=== PATIENT | female | born 1945 | race Caucasian/White ===

== ENCOUNTER → 2016-06-07 | Outpatient (CLI) | payer OTHER, MEDICARE ==
[~2016-06-07] MED LIST: ALL180 PO; AMOX1TAB43 PO; AMOX500C3 PO; APRE1TAB4 PO; ASCA500 PO; ASPEC81 PO; CALC3OIN TOP; CALCTAB5 PO; CARB1SOL OPB; CARV3.122 PO; CHOL2000 PO; CLBCRM30 EXT; CLC100 PO; CMD1 PO; CRG625 PO; EMOLCRE TD; ENOX80IN SQ; LACT10CA3 PO; LEVO100T7 PO; LEVO88TA PO; LVNIS80 SQ; MGNO400 PO; MISCCAP80 PO; MRLP17 PO; MULT-190 PO; MULT-506 PO; OXYC-57 PO; POLY1DRO OPB; PSYLCAP5 PO; RXC5 PO; SALI0.6510; SALI1SPR3 NAE; SPIR25TA PO; TYL325X PO; [UNRECOGNIZED DRUG - CODE] EXT; [UNRECOGNIZED DRUG - OTHER] OPB; [UNRECOGNIZED DRUG - OTHER] OPB
--- NOTE | 2016-06-14 09:47 | CODING QUERY MEDICAL NECESSITY ---
CQSUPPORTING DIAGNOSIS NEEDED A supporting diagnosis is required for the test/procedure performed on this patient in order for us to be reimbursed by the patient's insurance. Please provide a supporting diagnosis for the following test/procedure listed below next to the test name along with your signature. *If there is no additional diagnosis for this patient that would support the following test/procedure please document that below next to the test/procedure. Test(s)/Procedure(s) that require a supporting diagnosis: DOS 06/07/16 BONE DENSITY TEST Provider Signature: Date: Thank you Nancy Faust Health Information Management Once completed, please kindly fax back to [phone] For questions please call [phone]
== END | disposition home or self-care (01) ==
LOC: C.MAMM 10:20
PROVIDERS: ATTEND Internal Medicine
DX: M85.80 Other specified disorders of bone density and structure, unspecified site (principal)

== ENCOUNTER → 2016-07-06 | Day surgery (SDC) | payer OTHER, MEDICARE ==
[2016-06-15 09:21] VITALS: BMI 27.0
--- NOTE | 2016-06-15 10:02 | PAT Medication Instructions ---
Service Date Jun 15, 2016. Current Home Medication List Amoxicillin (Amoxil), 2,000 MG PO UD Apremilast (Otezla 10 & 20 & 30 mg), 30 MG PO BID Ascorbic Acid (Vitamin C), 1,000 MG PO QAM Aspirin Enteric Coated (Ecotrin Or Generic *), 81 MG PO QAM Calcitriol (Topical) (Vectical), 1 DOSE TOP PRN Calcium (Caltrate), 1,200 MG PO QAM Carvedilol (Coreg), 3.125 MG PO BIDM Clobetasol Propionate (Clobetasol Propionate Cream 0.05%), 1 APPLN EXT BID PRN for PSORIASIS Emollient (Cetaphil), 1 APPLN TD PRN Fexofenadine Hcl (Mary Jo *), 180 MG PO QAM Hydrocortisone Butyrate Hydrop (Locoid Cream 0.1%), 1 APPLN EXT PRN PRN for PSORIASIS Lactobacillus-Inulin (Culturelle), 1 TAB PO QAM Levothyroxine Sodium (Synthroid), 88 MCG PO HS Multivitamin (Multivitamin), 1 TAB PO QAM Ocuvite Preservision (Ocuvite Preservision), 1 TAB PO BID Polyethylene Glycol-Propylene (Systane Liquid Gel), 2 DROPS OPB HS Psyllium W/ Calcium (Metamucil Plus Calcium), 2 TAB PO NOON Saline (Saline Nasal Sparks), 1-2 SPRAYS ERIN PRN Spironolactone (Aldactone), 25 MG PO QAM Warfarin Sod (Coumadin), 3-4 MG PO QPM [Optiva Advanced], 1 DROP OPB PRN Medication Instructions For Your Scheduled Surgery Amoxicillin (Amoxil), 2,000 MG PO UD (takes prior to dental procedures) Apremilast (Otezla 10 & 20 & 30 mg), 30 MG PO BID (check with laundry laborer for instructions) - Check with surgeon/condemnation engineer for instructions: Aspirin Enteric Coated (Ecotrin Or Generic *), 81 MG PO QAM Warfarin Sod (Coumadin), 3-4 MG PO QPM - Hold the following medications 24 hours prior to surgery: Hydrocortisone Butyrate Hydrop (Locoid Cream 0.1%), 1 APPLN EXT PRN PRN for PSORIASIS Clobetasol Propionate (Clobetasol Propionate Cream 0.05%), 1 APPLN EXT BID PRN for PSORIASIS Calcitriol (Topical) (Vectical), 1 DOSE TOP PRN Emollient (Cetaphil), 1 APPLN TD PRN - Hold the following medications the morning of surgery: Spironolactone (Aldactone), 25 MG PO QAM Psyllium W/ Calcium (Metamucil Plus Calcium), 2 TAB PO NOON Ocuvite Preservision (Ocuvite Preservision), 1 TAB PO BID Multivitamin (Multivitamin), 1 TAB PO QAM Lactobacillus-Inulin (Culturelle), 1 TAB PO QAM Fexofenadine Hcl (Mary Jo *), 180 MG PO QAM Ascorbic Acid (Vitamin C), 1,000 MG PO QAM Calcium (Caltrate), 1,200 MG PO QAM - Take the following medications the morning of surgery with a sip of water: Saline (Saline Nasal Sparks), 1-2 SPRAYS ERIN PRN [Optiva Advanced], 1 DROP OPB PRN Carvedilol (Coreg), 3.125 MG PO BIDM - Take the following medications as scheduled the night before surgery: Saline (Saline Nasal Sparks), 1-2 SPRAYS ERIN PRN Polyethylene Glycol-Propylene (Systane Liquid Gel), 2 DROPS OPB HS Ocuvite Preservision (Ocuvite Preservision), 1 TAB PO BID Levothyroxine Sodium (Synthroid), 88 MCG PO HS [Optiva Advanced], 1 DROP OPB PRN Carvedilol (Coreg), 3.125 MG PO BIDM If you have any questions please call us at [phone] (Gianna Gonzales PA-C) or [phone] or [phone]
[2016-06-15 10:31] LABS: BASO % 0.3 %; BASO ABS # 0.03 K/uL (0-0.2); COMPLETE YES; EOS % 10.4 %; HEMATOCRIT 42.8 % (37-47); IG% 0.2 %; LYMPH % 15.7 %; LYMPH ABS # 1.64 K/uL (1.2-3.4); MEAN CELL VOLUME 98.4 fL (80-100); MEAN CORPUSCULAR HEMOGLOBIN 33.3 pg (25-34); MEAN CORPUSCULAR HGB CONC 33.9 g/dl (32-36); MEAN PLATELET VOLUME 9.5 fL (7.4-10.4); MONO % 8.5 %; NEUT % 64.9 %; PLATELET COUNT 283 K/uL (130-400); RED BLOOD COUNT 4.35 M/uL (4.2-5.4); WHITE BLOOD COUNT 10.43 K/uL (4.8-10.8)
[2016-06-15 10:57] LABS: BUN/CREATININE RATIO 11.4 (10-20); CALCIUM 9.3 mg/dl (8.5-10.1); CREATININE 0.89 mg/dl (0.60-1.20); POTASSIUM 4.4 mmol/L (3.5-5.1)
[2016-06-15 11:30] LABS: MANUAL MICROSCOPIC REQUIRED? NO; REVIEW REQ? NO; URINE APPEARANCE CLEAR (CLEAR); URINE BILIRUBIN NEG (NEG); URINE COLOR YELLOW; URINE NITRITE NEG (NEG); URINE SPECIFIC GRAVITY 1.018 (1.000-1.030); UROBILINOGEN NEG (NEG)
--- NOTE | 2016-07-05 19:58 | HISTORY & PHYSICAL EXAMINATION ---
DATE OF ADMISSION: 07/06/2016 SUBJECTIVE CHIEF COMPLAINT: Right knee pain. HISTORY OF PRESENT ILLNESS: This is a patient who has been treated conservatively with chronic anterior right knee pain. She had failed all conservative management and had an MRI performed of the right knee which noted chondromalacia of the patella and also a Kearns cyst. She is now being set up for surgical treatment. PAST MEDICAL HISTORY: History of aortic valve replacement, bilateral carotid bruits, diverticulosis, gout, hyperglycemia, hypertension, hypothyroidism, psoriasis, history of cardiomyopathy, history of pulmonary embolism. PAST SURGICAL HISTORY: History of aortic valve replacement x2 with a bovine heart valve in March of 2002 and a mechanical valve in September of 2010, tonsillectomy, hysterectomy in September of 2002 and a basal cell carcinoma surgery from her nose in 2014. FAMILY HISTORY: Noncontributory. SOCIAL HISTORY: The patient is a previous smoker, she quit in 1980. She has approximately 4 alcoholic drinks per day. OBJECTIVE PHYSICAL EXAMINATION: GENERAL: The patient is alert and oriented x3. She is in no acute distress. She is a well-dressed, well-nourished 70-year-old female. Her affect is appropriate. CARDIOVASCULAR: Heart has a regular rhythm and rate with a normal S1 and a mechanical aortic prosthetic S2. LUNGS: Clear to auscultation bilateral. Dorsalis pedis, posterior tib pulses are +2/4. Cap refill is less than 2 seconds. LYMPHATIC: No evidence of any swollen lymph nodes. MUSCULOSKELETAL: The patient has an antalgic gait favoring the right lower extremity. On inspection of the right lower extremity, the patient is noted to have swelling of the right knee and there is also a knee effusion noted. With palpation, the patient has tenderness over the patella. She also has pain and crepitation with patellar grind testing. There is crepitation with passive and active range of motion. There is no laxity with varus or valgus stress or with anterior or posterior drawer. The patient has decrease in strength secondary to pain in the right knee. SKIN: There are no scars, rashes or ulcers noted. NEUROLOGIC: Sensation is normal intact distally. X-RAY EXAM: MRI of the right knee demonstrates severe patellofemoral osteoarthritic changes with mild medial and lateral compartment arthritic changes. There is a moderate-sized Kearns cyst. ASSESSMENT AND DIAGNOSES: 1. Right knee chondromalacia patella. 2. Kearns cyst right knee. PLAN: Above assessment was discussed with the patient. At this time, it was recommended the patient undergo a right knee arthroscopy with chondroplasty of the patellofemoral joint and aspiration of the Kearns cyst. All potential risks, benefits, complications, alternatives and rehab have been discussed with the patient. At this time, she wishes to proceed with the surgery as indicated. She will be scheduled for the surgery on 07/06/2016.
[~2016-07-06] VITALS: Ht 167.6 cm; Wt 76.8 kg
[~2016-07-06] MED LIST changes: +ATROPINE SULFATE 0.1 MG/ML 5ML SYR IV PRN; +BUPIVACAINE/EPINEPHRINE 0.5% MPF 1:200,000 30 ML VIAL ONE; -CARB1SOL OPB; +CEFAZOLIN 1000MG/55 ML D5W IV SCH; +DEXAMETHASONE SOD INJ 4 MG/ML VIAL ONE; +EpHEDrine SULFATE INJ 50 MG/ML AMP IV PRN; +FENTANYL CITRATE INJ 50 MCG/1 ML 2 ML VIAL IV PRN; +FENTANYL CITRATE INJ 50 MCG/1 ML 2 ML VIAL ONE; +HYDROmorphone INJ 1 MG/ML SYR IV PRN; +LACTATED RINGER'S 1000ML 1,000 ML IV SCH; -LEVO100T7 PO; +LIDOCAINE HCL 2% 2 ML VIAL (20MG/ML) ONE; +MIDAZOLAM HCL 1 MG/ML 2ML VIAL ONE; -MISCCAP80 PO; +ONDANSETRON INJ 2 MG/ML 2 ML VIAL IV PRN; +ONDANSETRON INJ 2 MG/ML 2 ML VIAL ONE; +OXYCODONE/ACETAMINOPHEN 5-325 TAB PO PRN; +PROMETHAZINE HCL INJ 6.25 MG in SODIUM CHLORIDE 0.9% 50ML 50 ML IV PRN; +PROPOFOL IV EMULSION 10 MG/ML 20 ML VIAL IV ONE; -[UNRECOGNIZED DRUG - OTHER] OPB
[2016-07-06 10:00] VITALS: BP 141/94; PULSE 63; TEMP 36.8; O2SAT 98; Ht 167.6 cm; Wt 76.8 kg
[2016-07-06 10:00] LABS: INR 1.1 (0.9-1.1); PARTIAL THROMBOPLASTIN RATIO 1.3; PROTHROMBIN TIME (PATIENT) 12.1 SECONDS (9.0-12.0)
--- NOTE | 2016-07-06 10:38 | History & Physical Bridge Note ---
H&P Re-Evaluation Bridge Note: I have examined the patient, reviewed the History & Physical and in the interval since the performance of the History & Physical I have noted the following changes of clinical significance: No changes noted
--- NOTE | 2016-07-06 12:09 | Discharge Instructions ---
Discharge Instructions Admission Reason for Admission: Right Knee Chondromalacia Patellae, Bakers Cyst Discharge Discharge Diagnosis / Problem: right knee chondromalacia patella Discharge Goals Goal(s): Decrease discomfort, Improve function Activity Recommendations Activity Limitations: as noted below Lifting Limitations: until after follow-up appointment Exercise/Sports Limitations: until after follow-up appointment May Resume Sexual Activity: when tolerated Shower/Bathe: may shower/bathe in 3 days Driving or Machine Use: When cleared by Dr. Vega's clinic. Weightbearing Status: Right weightbearing (as tolerated) . Instructions / Follow-Up Instructions / Follow-Up ACTIVITY RECOMMENDATIONS: * You may walk on the leg with or without crutches as comfort permits. * Bending of the knee should start at once. * Do not shower for 72 hours following surgery. SPECIAL CARE INSTRUCTIONS: * You may cleanse the skin adjacent to the small wounds with soap and water at the time of the first dressing change. * The application of an ice bag to the front and sides of the knee will decrease swelling and discomfort for the first 48-96 hours. * The small incisions may be sore and develop bruising. This bruising does not require any special care. SPECIAL PRECAUTIONS: * If you experience unusual pain unrelieved by prescriptions, temperature elevation (100 degrees F. or above) or progressive swelling or bleeding, you should contact our office at for further evaluation. * You may have been prescribed pain medication. If you experience nausea and/or fine skin rash, discontinue this medication and contact our office at for an alternate medication. * Restart Lovenox injections in the morning of 3.4.17, the day after the surgery. Also restart Coumadin on 3..17. Coumadin clinic will inform you when you are to stop using Lovenox. DRESSING: * Dressing should be comfortable and absorb any leakage of fluid and/or blood. * The dressing may become moist or bloodstained. * Dressing may be removed 3 days after surgery and bandaids placed over the small surgical incisions. If can be removed sooner if it becomes very soiled or loose. * Bandaids may be used over next several days as needed and can be discontinued when there is not further drainage from the wounds. FOLLOW UP VISIT: If appointment is not already scheduled: Please call [facility] to make a follow-up appointment for 2 weeks after your surgery at . Current Hospital Diet Patient's current hospital diet: Discharge Diet Recommended Diet: Regular Diet Pending Studies Studies pending at discharge: no Medical Emergencies . Who to Call and When: Medical Emergencies: If at any time you feel your situation is an emergency, please call 911 immediately. . Non-Emergent Contact Non-Emergency issues call your: Surgeon Call Non-Emergent contact if: temperature is above 101, your pain is not controlled, your pain is worsening, wound has increased drainage, wound has increased redness, wound has increased pain . "Provider Documentation" section prepared by Kadeem Khalil. VTE Core Measure Inpt VTE Proph given/why not?: Enoxaparin (Lovenox)SQ, Warfarin (Coumadin)
--- NOTE | 2016-07-06 13:05 | [facility] Post Operative Brief Note ---
Immediate Operative Summary Operative Date Jul 06, 2016. Pre-Operative Diagnosis Right knee chondromalacia patella, Right knee Kearns's cyst. Post-Operative Diagnosis Right knee lateral meniscus tear, chondromalacia patella, DJD grade 3-4 patellofemoral joint, Right knee Kearns's cyst, medial synovial plica, synovitis Procedure(s) Performed Right knee arthroscopy, partial lateral meniscectomy, resection medial synovial plica, chondroplasty of trochlea and patella, synovectomy Surgeon Dr. Vega Pantograph Machine Operator Surgeon(s) none Estimated Blood Loss 2cc Findings See dict Specimens none per surgeon Drains None Anesthesia GLMA w/ local Complication(s) None Disposition Recovery Room / PACU
--- NOTE | 2016-07-06 13:37 | OPERATIVE REPORT ---
DATE OF OPERATION: 07/06/2016 PREOPERATIVE DIAGNOSES: 1. Right knee chondromalacia patella. 2. Kearns's cyst. 3. Marrow edema distal femur, possible insufficiency fracture. POSTOPERATIVE DIAGNOSES: 1. Right knee lateral meniscus tear. 2. 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 3. Symptomatic medial synovial plica. 4. Kearns's cyst. 5. Synovitis. PROCEDURE 1. Right knee arthroscopy with partial lateral meniscectomy. 2. Chondroplasty of the patella. 3. Chondroplasty of the femoral trochlea. 4. Resection of medial synovial plica. 5. Synovectomy of the knee. SURGEON: Dr. Vega. DOG BREEDER: None. ANESTHESIA: General LMA with local. SPECIMENS: None. DRAINS: None. COMPLICATIONS: None. BLOOD LOSS: 2 mL. PERTINENT HISTORY: This is a 70-year-old woman ongoing right knee pain. She had a recent twisting injury to the knee and had pain in the posterior aspect of the knee. The patient was treated conservatively initially with a brace, protected weightbearing, anti-inflammatories, rest, observation. She also had some home exercises and physical therapy which she also failed. She had an MRI which demonstrated chondromalacia of patella and a Kearns's cyst. The patient was scheduled for surgery as indicated. She also had an area of marrow edema, possible insufficiency fracture distal femur. The patient was scheduled for surgery as indicated. All potential risks, benefits, complications, alternatives, rehab, potential for incomplete relief of symptoms, need for further surgery, DVT, PE, , persistent pain, swelling, scarring, weakness, neurovascular, wound complications and need for arthroplasty were discussed with the patient. The patient decided to proceed with the procedure as indicated. OPERATION AND FINDINGS: PROCEDURE: The patient was taken to the operative suite and placed supine on the operating room table. I reviewed the consent and identification of proper operative site, the patient was anesthetized, LMA was placed. Pneumatic tourniquet applied to the right thigh over cast padding. Right lower extremity was then sterilely prepped and draped in usual fashion, elevated, and exsanguinated with an Esmarch bandage, tourniquet inflated to 350 mmHg. Next, a #11 blade scalpel was used to make an incision anterolateral aspect of the knee followed by placement of blunt trocar and sleeve, camera and inflow. Next, the suprapatellar outflow cannula was placed, 11 blade scalpel incision following placement of blunt trocar and sleeve and outflow was applied. Next, sequential diagnostic arthroscopy commenced suprapatellar pouch noting significant synovitis. Next it was noted degenerative joint changes, grade 3-4 with eburnated of a significant portion of the patella and the femoral trochlea. Next there was noted to be a symptomatic appearing medial synovial plica with fraying. Next, the medial gutter was inspected and noted to have no loose bodies. Synovitis was noted. Next, attention was then directed toward the medial compartment, followed by an 11 blade scalpel incision followed by placement of a blunt tipped probe. The medial meniscus was noted to be stable and intact. There was noted to be some softening of the medial femoral condyle with extended grade 3-4 degenerative changes from the trochlea into the the medial condyle. No loose bodies. Next, a 4.5 mm sucker shaver was introduced, synovectomy was performed. Next, attention was then directed toward the medial synovial plica which was then resected followed by synovectomy in the medial gutter, synovectomy in the suprapatellar pouch. Next, attention was then directed towards the ACL and the PCL. A probe was inserted and noted to be stable and intact. Next, the lateral compartment was inspected and noted to have synovitis and a partial tearing of the lateral meniscus from the white-white zone into the red-white zone. Next, a 4.5 mm sucker shaver was then used to resect the damaged portion of the lateral meniscus. The meniscus was then smoothed and contoured with the sucker shaver. Next tenosynovectomy was performed in the lateral compartment. Next, attention was then directed toward the lateral gutter. There was noted to be no loose bodies and synovitis was encountered once again. A synovectomy was performed with a 4.5 mm sucker shaver. Next, the 4.5 mm sucker shaver was then used to perform a chondroplasty of the patella and the femoral trochlea. After this was completed, all particulate debris was then flushed from the joint and synovitis was completed in the suprapatellar pouch. This was then followed by removal of all fluid from the joint. Portal sites were removed. Portal sites were then closed using interrupted 4-0 nylon sutures. The joint was injected with 30 mL of 0.5% Marcaine with epinephrine. Decision was made to avoid aspirating the Kearns's cyst as it was small to moderate size and due to the advanced degenerative changes in the patellofemoral joint I felt this would just cause recurrence of the Kearns's cyst. The sterile compressive dressing was then applied to the right knee, overwrapped with an Moiz wrap. Tourniquet was released. The patient was awakened and taken to recovery in stable condition. I attest to the content of the Intraoperative Record and any orders documented therein. Any exceptio ns are noted below.
[2016-07-06 14:05] VITALS: BP 166/82; PULSE 56; TEMP 36.7; O2SAT 97
[2016-07-06 14:35] VITALS: BP 164/80; PULSE 64; O2SAT 96
[2016-07-06 15:05] VITALS: BP 140/50; PULSE 64; TEMP 37; O2SAT 98
--- NOTE | 2016-07-06 15:06 | Anesthesiology Progress Note ---
Anesthesia Post Op Note Date & Time Jul 06, 2016 at 15:05 Vital Signs Pain Intensity: 3 Vital Signs Past 12 Hours Date Time Temp Pulse Resp B/P Pulse Ox O2 Delivery O2 Flow Rate FiO2 07/06/16 14:35 64 18 164/80 96 Room Air 07/06/16 14:05 36.7 56 16 166/82 97 Room Air 07/06/16 13:50 53 18 07/06/16 13:50 53 18 154/80 93 07/06/16 13:50 37.1 07/06/16 13:45 52 16 163/82 97 07/06/16 13:45 53 16 07/06/16 13:40 53 17 159/82 94 07/06/16 13:40 53 17 07/06/16 13:35 51 16 07/06/16 13:35 51 16 162/81 93 07/06/16 13:30 55 13 168/85 95 07/06/16 13:30 55 13 07/06/16 13:26 176/92 07/06/16 13:25 57 17 07/06/16 13:25 57 17 96 07/06/16 13:21 171/90 07/06/16 13:20 62 17 97 07/06/16 13:20 59 17 07/06/16 13:15 60 19 07/06/16 13:15 61 19 172/87 100 07/06/16 13:10 55 17 07/06/16 13:10 56 17 163/80 100 07/06/16 13:05 169/81 07/06/16 13:00 62 18 153/92 100 Mask 10 07/06/16 12:55 36.2 68 18 166/93 100 Mask 10 07/06/16 12:55 36.2 68 16 166/93 100 Mask 10 07/06/16 10:00 36.8 63 18 141/94 98 Room Air Notes Mental Status: alert / awake / arousable, participated in evaluation Pt Amnestic to Procedure: Yes Nausea / Vomiting: adequately controlled Pain: adequately controlled Airway Patency, RR, SpO2: stable & adequate BP & HR: stable & adequate Hydration State: stable & adequate Anesthetic Complications: no major complications apparent
== END | disposition home or self-care (01) ==
LOC: C.ACU 09:00
PROVIDERS: ATTEND Orthopaedic Surgery Sports Medicine
DX: S83.281A Other tear of lateral meniscus, current injury, right knee, initial encounter (principal); M94.261 Chondromalacia, right knee; M71.21 Synovial cyst of popliteal space [Baker], right knee; M65.9 Synovitis and tenosynovitis, unspecified; Y93.89 Activity, other specified; Y92.89 Other specified places as the place of occurrence of the external cause; Y99.8 Other external cause status; R09.89 Other specified symptoms and signs involving the circulatory and respiratory systems; I10 Essential (primary) hypertension; E03.9 Hypothyroidism, unspecified; I42.8 Other cardiomyopathies; Z86.711 Personal history of pulmonary embolism; Z90.710 Acquired absence of both cervix and uterus

== ENCOUNTER 2016-07-08 12:24 | Inpatient (IN) | payer OTHER, MEDICARE ==
[~2016-07-08] VITALS: Ht 167.6 cm; Wt 79.4 kg
[~2016-07-08 12:24] MED LIST changes: -AMOX1TAB43 PO; -ATROPINE SULFATE 0.1 MG/ML 5ML SYR IV PRN; -BUPIVACAINE/EPINEPHRINE 0.5% MPF 1:200,000 30 ML VIAL ONE; -CEFAZOLIN 1000MG/55 ML D5W IV SCH; -CLC100 PO; -CRG625 PO; -DEXAMETHASONE SOD INJ 4 MG/ML VIAL ONE; -EpHEDrine SULFATE INJ 50 MG/ML AMP IV PRN; -FENTANYL CITRATE INJ 50 MCG/1 ML 2 ML VIAL IV PRN; -FENTANYL CITRATE INJ 50 MCG/1 ML 2 ML VIAL ONE; -HYDROmorphone INJ 1 MG/ML SYR IV PRN; -LACTATED RINGER'S 1000ML 1,000 ML IV SCH; -LIDOCAINE HCL 2% 2 ML VIAL (20MG/ML) ONE; -LVNIS80 SQ; -MGNO400 PO; -MIDAZOLAM HCL 1 MG/ML 2ML VIAL ONE; -MRLP17 PO; -ONDANSETRON INJ 2 MG/ML 2 ML VIAL IV PRN; -ONDANSETRON INJ 2 MG/ML 2 ML VIAL ONE; -OXYCODONE/ACETAMINOPHEN 5-325 TAB PO PRN; -PROMETHAZINE HCL INJ 6.25 MG in SODIUM CHLORIDE 0.9% 50ML 50 ML IV PRN; -PROPOFOL IV EMULSION 10 MG/ML 20 ML VIAL IV ONE; -RXC5 PO; -SALI0.6510; -TYL325X PO
[2016-07-08] MEDS ORDERED: MoRPHine SULFATE 10 MG/ML CARP/VIAL IV STA (13:15)
[2016-07-08] MEDS ORDERED: ACETAMINOPHEN 500 MG TAB PO STA (13:15)
[2016-07-08] MEDS ORDERED: SODIUM CHLORIDE 0.9% 1000ML 1,000 ML IV STA (13:15)
--- NOTE | 2016-07-08 14:38 | DIAGNOSTIC IMAGING REPORT ---
CHEST ONE VIEW PORTABLE CLINICAL HISTORY: fever cough COMPARISON STUDY: 09/07/2010 FINDINGS: Moderate cardiomegaly. Prior median sternotomy. Diaphragms smooth. Lungs are clear. IMPRESSION: Moderate cardiomegaly. Otherwise negative study Electronically signed by: Chao Drew M.D. 07/08/2016 2:37 PM Dictated Date/Time: 07/08/2016 2:36 PM
--- NOTE | 2016-07-08 14:39 | DIAGNOSTIC IMAGING REPORT ---
RIGHT KNEE 3 VIEWS CLINICAL HISTORY: r knee pain Right pain COMPARISON: None. DISCUSSION: Relatively prominent slightly complex joint effusion. Small component of air containment and or debris may be present. Major joint spaces are generally well preserved. Cortical margins are intact. There is no evidence for soft tissue swelling. IMPRESSION: Complex joint effusion raising the possibility of a post procedural joint space infection. No acute bony abnormality at this time Electronically signed by: Chao Drew M.D. 07/08/2016 2:38 PM Dictated Date/Time: 07/08/2016 2:37 PM
[2016-07-08] MEDS ORDERED: CEFTRIAXONE SOD INJ 1 GM ADDVIAL IV STA (14:59)
[2016-07-08 15:00] LABS: INR 1.1 (0.9-1.1); PARTIAL THROMBOPLASTIN RATIO 0.9; PROTHROMBIN TIME (PATIENT) 12.1 SECONDS (9.0-12.0)
[2016-07-08 15:01] LABS: BUN/CREATININE RATIO 11.8 (10-20); CALCIUM 8.4 mg/dl (8.5-10.1); CREATININE 0.74 mg/dl (0.60-1.20); MAGNESIUM 1.6 mg/dl (1.8-2.4); POTASSIUM 3.7 mmol/L (3.5-5.1)
[2016-07-08] MEDS ORDERED: LIDOCAINE HCL 1% 20 ML VIAL ONE (15:17)
[2016-07-08 15:25] LABS: BASO % 0.1 %; BASO ABS # 0.01 K/uL (0-0.2); COMPLETE YES; EOS % 0.2 %; HEMATOCRIT 35.4 % (37-47); IG% 0.3 %; LYMPH % 12.7 %; LYMPH ABS # 1.49 K/uL (1.2-3.4); MEAN CELL VOLUME 96.2 fL (80-100); MEAN CORPUSCULAR HEMOGLOBIN 32.6 pg (25-34); MEAN CORPUSCULAR HGB CONC 33.9 g/dl (32-36); MEAN PLATELET VOLUME 9.4 fL (7.4-10.4); NEUT % 72.7 %; PLATELET COUNT 224 K/uL (130-400); RED BLOOD COUNT 3.68 M/uL (4.2-5.4); WHITE BLOOD COUNT 11.75 K/uL (4.8-10.8)
[2016-07-08 15:34] LABS: PARTIAL THROMBOPLASTIN RATIO 1.5
[2016-07-08 16:15] VITALS: O2SAT 90; Ht 167.6 cm; Wt 79.4 kg
[2016-07-08] MEDS ORDERED: ASPIRIN 324 MG CHEW PO STA (16:27)
--- NOTE | 2016-07-08 16:45 | OPERATIVE REPORT ---
DATE OF OPERATION: 07/08/2016 PREOPERATIVE DIAGNOSIS: Right knee swelling. POSTOPERATIVE DIAGNOSIS: Same. PROCEDURE: Right knee aspiration. SURGEON: Dr. Bonilla. POULTRY HUSBANDRY WORKER: None. ANESTHESIA: Local anesthetic. SPECIMEN: Fluid. INDICATIONS: The patient is a 70-year-old female who underwent knee arthroscopy on Saturday. She had increasing pain and swelling in the region. There was concern for intraarticular infection. We discussed the procedure with the patient and she wished to proceed with aspiration. DESCRIPTION OF PROCEDURE: The patient was identified, laterality was confirmed. The aspiration region was sterilized with a combination of alcohol and Betadine and then the region was aspirated with 10 mL of lidocaine. Once proper anesthesia had been obtained, I utilized an 18 gauge needle to aspirate the knee. I aspirated about 30 mL of old-clotted blood. There was no purulent material, no concern for infection based on the appearance of the fluid. She tolerated the procedure well. I attest to the content of the Intraoperative Record and any orders documented therein. Any exceptio ns are noted below.
[2016-07-08 16:48] LABS: SYNOVIAL FLUID APPEARANCE BLOODY; SYNOVIAL FLUID COLOR RED; SYNOVIAL FLUID MONONUC RELAT 11.2 %; SYNOVIAL FLUID POLYNUC RELAT 88.8 %
[2016-07-08] MEDS ORDERED: ALUMINUM/MAGNESIUM/SIMETH (MAALOX MAX) 30 ML UDC PO PRN (17:00)
[2016-07-08] MEDS ORDERED: POLYETHYLENE (MIRALAX) 17 GM PACK PO PRN (17:00)
[2016-07-08] MEDS ORDERED: NITROGLYCERIN 0.4 MG SL PER TAB CHARGE SL PRN (17:00)
[2016-07-08] MEDS ORDERED: ZOLPIDEM TARTRATE 5 MG TAB PO PRN (17:00)
[2016-07-08] MEDS ORDERED: ONDANSETRON INJ 2 MG/ML 2 ML VIAL IV PRN (17:00)
[2016-07-08] MEDS ORDERED: MAGNESIUM HYDROXIDE SUSP 30 ML UDC PO PRN (17:00)
[2016-07-08] MEDS ORDERED: VANCOMYCIN CONSULT ACTIVE PRN (17:07)
--- NOTE | 2016-07-08 17:21 | History and Physical ---
History & Physical Date of Service Jul 08, 2016. History & Physical septic right knee, elevated tn and hx mechanical valve replacement, [id number]
[2016-07-08] MEDS ORDERED: VANCOMYCIN INJ 2,000 MG in SODIUM CHLORIDE 0.9% 500ML 500 ML IV ONE (17:30)
[2016-07-08 17:41] LABS: C-REACTIVE PROTEIN 5.85 mg/dl (0-0.29)
--- NOTE | 2016-07-08 17:42 | DIAGNOSTIC IMAGING REPORT ---
Venous Doppler right leg RIGHT VENOUS DOPP LOWER EXT UNILAT CLINICAL HISTORY: r leg swelling Right TECHNIQUE: Venous Doppler COMPARISON STUDY: None FINDINGS: Normal study IMPRESSION: Normal study Electronically signed by: Chao Drew M.D. 07/08/2016 5:41 PM Dictated Date/Time: 07/08/2016 5:40 PM
--- NOTE | 2016-07-08 18:13 | HISTORY & PHYSICAL EXAMINATION ---
DATE OF ADMISSION: 07/08/2016 This is inpatient admission, 35 minutes. CHIEF COMPLAINT: Right knee pain and fever. HISTORY OF PRESENT ILLNESS: The patient is a 70-year-old white female with a significant past medical history of aortic valve replacement x2, on blood thinner for mechanical valve, tobacco abuse, hypothyroidism, hypertension, coming to the hospital Emergency Department because of the above chief complaint. The patient had right knee arthroscopy on Saturday. She reported to me she was on Coumadin for brook anticoag because of mechanical aortic valve. Coumadin was stopped 5 days prior to this procedure, and Lovenox bridging was started 2 days prior during this procedure, she had the procedure done on last Saturday, which was 3 days ago. Then she developed significant pain and swelling in the right knee arthroscopic area. In the Emergency Room, she was with fever and mild leukocytosis. On pulmonary exam, there was significant pain/swelling in right knee. ED physician has talked to on-call orthopedic surgeon. The patient had a right knee aspiration done already. There was old-clotted blood. There was no pleural material. When I interviewed with the patient, she confirmed me the above information. She reported there was significant worse pain in right knee this morning. She was having very difficult to be out of bed to the restroom. There was severe pain when she weightbearing and associated with some chest tightness this morning, but no chest pain, no shortness of breath, no palpitations. In the Emergency Room when she arrived, temperature was 38. The patient denied nausea, vomiting, abdominal pain, diarrhea, or constipation. Denied cough, sputum. Denied lower extremity swelling. Denied dysuria, urgency and frequencies. In the Emergency Room, she was found to have elevated troponin. Aspirin 4 tablets chewing was given. When I interviewed with the patient, she was awake, alert and orientated, conversational, confirming the above information, right knee pain, No other complaints. Otherwise, 14 points organized system review was negative in detail. Please see HPI. 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 She was having hysterectomies. She was having basal cell cancer removed from her nose. SOCIAL HISTORY: Alcohol drinking 3-4 glasses daily. She was smoking 1-1/2 pack x10 years, quit in 1980. Denied illicit drug abuse. FAMILY HISTORY: Noncontributory. ALLERGIES: ALLERGIC TO SULFA ANTIBIOTICS. MEDICATIONS: Taking at home include amoxicillin 2000 mg p.o. as directed, Otezla 30 mg p.o. b.i.d., vitamin C 1000 mg p.o. q.a.m., aspirin 81 mg p.o. q.a.m., calcitriol 1 dose topical use p.r.n., calcium 1200 mg p.o. q.a.m., Coreg 3.125 mg p.o. b.i.d., vitamin D3 one tab p.o. daily, emollient 1 application topical use p.r.n., Lovenox 80 mg subQ q. 12, Mary Jo 180 mg p.o. q.a.m., lactobacillus 1 tab p.o. q.a.m., levothyroxine 88 mcg p.o. at bedtime, multiple vitamin 1 tab p.o. q.a.m., Ocuvite 1 tab p.o. b.i.d., Systane liquid gel 2 drops OPB at bedtime, Metamucil 2 tab p.o. at noontime, nasal saline spray 1-2 sprays as needed, Aldactone 25 mg p.o. q.a.m., and warfarin 3-4 mg p.o. q.a.m. PHYSICAL EXAMINATION: VITAL SIGNS: Temperature 38, pulse 61, respiration rate 18, blood pressure 174/88, pulse ox was 97% in room air. GENERAL: The patient is a white female, pleasant, awake, alert and orientated, conversational, follows all commands. HEAD: Normocephalic. EYES: Pupils equal, round responds to light. EARS: Ear was normal. NOSE: Normal. NECK: Supple. Thyroid no enlargement. Trachea midline. HEART: Regular rhythm S1, S2, has no murmur. LUNGS: Decreased breathing sounds. There were no wheezing, rhonchi or crackles. ABDOMEN: Soft, nontender. Bowel sound was positive. back is symmetric on inspections. There was no deformity, no midline tenderness. Bilateral CVA was nontender. SKIN: Has no rashes except in the right knee. EXTREMITIES: Right knee has local tender and warm and hot on palpation, extended to the right lower extremity. Otherwise, skin has no rashes. NEUROLOGICAL EVALUATION: Cranial nerves II-XII was intact and was normal. LABORATORY STUDIES: PT was 12, INR was 1.1. BUN 11, creatinine was normal. Calcium 8.4, magnesium 1.6. Liver function test was within normal limits. WBC 11, hemoglobin 12, platelets 224. Troponin 0.176. Right knee aspiration fluid was bloody, WBC was 12,000. Blood culture and aspiration fluid culture was sent. IMAGING STUDIES: Chest x-ray - no acute disease. Right knee x-ray - no acute bony abnormalities, but there was possible post-procedural joint space infection. EKG was done in the Emergency Room. Sinus rhythm at 68 beats per minutes. There was T-wave inversion is evident in anterior lead. ASSESSMENT AND PLAN: A 70-year-old white female with the conditions see below: 1. Elevated troponin with normal kidney functions with a feeling of mild chest tightness this morning. No chest pain for now. Differential diagnoses include possible acute coronary syndrome or troponin leakages. 2. Mechanical valve replacement history, and had 2 time aortic valve procedures was on blood thinners. Currently, is on Lovenox. 3. Possible septic knee with right knee pain, tender and elevated temperatures and leukocytosis. Possible septic knee, and with a recent knee procedure. 4. Hypothyroidism. 5. History of tobacco abuse disorder. 6. Daily heavy alcohol intake. 7. Possible hypertension histories, on Coreg. Like I mentioned in the above, the patient has complex medical conditions with going on such as possible septic knee, possible NSTEMI, and the mechanical valve replacement which need to be on a blood thinner. She is currently on Lovenox bridging for the Coumadin. However, I feel she has mechanical valve replacement need to be on anticoagulation and possibly she has non-STEMI. I called to Dr. Bonilla; he said from the knee standpoint, it would be okay to be on heparin drip anticoagulation. I discussed with patient and her about risk and benefit of the heparin drip, the benefits will be good for the mechanical valve which is very important, and treat for the possible ACS, and risk is the intrajoint bleeding or bleeding getting worse in the joint space. The patient and understand and we need to take the risk. Therefore, I will start a heparin drip, standard dose, no bolus. Watch for the signs and symptoms of bleeding. At the same time, I will check cardiac enzyme troponin x2 set more. Tele monitor PCU admission. Continue beta alexus. Continue aspirin. Continue nc o2 per protocol, will have cardiology consultation. Discussed with Dr. Bonilla and meghan to start vancomycin for possible septic joint. Blood culture and synovial fluid culture was sent. I will check ESR and CRP; vancomycin dose will be per pharmacy dosing. For the hypothyroidism, we will continue home medications. Deep venous thrombosis prophylaxis is covered. GI prophylaxis will be Protonix. The patient is full code. MTDD
[2016-07-08] MEDS ORDERED: MAGNESIUM SULFATE 1GM / D5W 1 GM in PREMIXED IN D5W 100 ML IV STA (19:00)
[2016-07-08 19:07] VITALS: BP 147/76; PULSE 56; TEMP 37; O2SAT 95
--- NOTE | 2016-07-08 19:31 | EMERGENCY ROOM VISIT NOTE ---
History Report prepared by Meir: Lila Carlisle Under the Supervision of: Dr. Osvaldo Mckeon D.O. First contact with patient: 13:07 Chief Complaint: KNEEPAIN Stated Complaint: KNEE PAIN History of Present Illness The patient is a 70 year old female who presents to the Emergency Room with complaints of constant knee pain beginning yesterday. The patient states that she had arthroscopic surgery on her right knee 2 days ago. She states that she had a cyst drained, repaired meniscus and cartilage smoothed. The patient states that she was feeling okay and was walking with crutches until yesterday. She notes that yesterday she began noticing foot, ankle, and thigh swelling, pressure, and congestion. She denies any sore throat, headache, chest pain, shortness of breath, nausea, vomiting, pain with urination. The patient reports that she has a history of blood clots and mechanical valve. She notes that she is on Coumadin and Lovenox that she restarted right after surgery. She notes that she was off of the Coumadin for a full week before her surgery. She notes that movement worsens her pain. Source of History: patient Onset: yesterday Position: knee (right) Quality: other (swelling) Timing: constant Modifying Factors (Worsening): movement Associated Symptoms: No SOB, No chest pain, No headache, No nausea, No sorethroat, No vomiting Note: She notes that yesterday she began noticing foot, ankle, and thigh swelling, pressure, and congestion. Review of Systems See HPI for pertinent positives & negatives. A total of 10 systems reviewed and were otherwise negative. Past Medical & Surgical Medical Problems: (1) Blood clot in vein (2) septic right knee, elevated tn and hx machanical valve replcement Surgical Problems: (1) Mechanical heart valve present Family History No pertinent family history stated. Social History Smoking Status: Former Smoker Marital Status: Housing Status: lives with significant other Current/Historical Medications Scheduled Amoxicillin (Amoxil), 2,000 MG PO UD Apremilast (Otezla 10 & 20 & 30 mg), 30 MG PO BID Ascorbic Acid (Vitamin C), 1,000 MG PO QAM Aspirin Enteric Coated (Ecotrin Or Generic *), 81 MG PO QAM Calcitriol (Topical) (Vectical), 1 DOSE TOP PRN Calcium (Caltrate), 1,200 MG PO QAM Carvedilol (Coreg), 3.125 MG PO BIDM Cholecalciferol (Vitamin D3), 1 CAP PO DAILY Emollient (Cetaphil), 1 APPLN TD PRN Enoxaparin (Lovenox), 80 MG SQ Q12H Fexofenadine Hcl (Mary Jo *), 180 MG PO QAM Lactobacillus-Inulin (Culturelle), 1 TAB PO QAM Levothyroxine Sodium (Synthroid), 88 MCG PO HS Multivitamin (Multivitamin), 1 TAB PO QAM Ocuvite Preservision (Ocuvite Preservision), 1 TAB PO BID Polyethylene Glycol-Propylene (Systane Liquid Gel), 2 DROPS OPB HS Psyllium W/ Calcium (Metamucil Plus Calcium), 2 TAB PO NOON Saline (Saline Nasal [place]), 1-2 SPRAYS ERIN PRN Spironolactone (Aldactone), 25 MG PO QAM Warfarin Sod (Coumadin), 3-4 MG PO QPM [Optiva Advanced], 1 DROP OPB PRN Scheduled PRN Clobetasol Propionate (Clobetasol Propionate Cream 0.05%), 1 APPLN EXT BID PRN for PSORIASIS Hydrocortisone Butyrate Hydrop (Locoid Cream 0.1%), 1 APPLN EXT PRN PRN for PSORIASIS Oxycodone/Acetaminophen 5MG/325MG (Percocet 5MG/325MG), 1-2 TABLETS PO Q4H PRN for Pain Allergies Coded Allergies: Sulfa Antibiotics (Verified Allergy, Mild, ITCHING, 07/06/16) Physical Exam Vital Signs Date Time Temp Pulse Resp B/P Pulse Ox O2 Delivery O2 Flow Rate FiO2 07/08/16 16:40 67 18 148/88 07/08/16 16:15 90 Room Air 07/08/16 14:41 62 18 143/75 90 Room Air 07/08/16 12:28 38.0 61 18 174/80 97 Room Air Physical Exam GENERAL: laying on stretcher, uncomfortable, holding RLE EYE EXAM: normal conjunctiva OROPHARYNX: mucous membranes are dry LUNGS: Clear to auscultation. Normal chest wall mechanics HEART: no murmurs, S1 normal and S2 normal ABDOMEN: abdomen soft, non-tender, normo-active bowel sounds, no masses, no rebound or guarding. BACK: Back is symmetrical on inspection and there is no deformity, no midline tenderness, no CVA tenderness. SKIN: no rashes and no bruising UPPER EXTREMITIES: upper extremities are grossly normal. LOWER EXTREMITIES: RLE enlarged, DP is 2/4, gross sensation is intact, knee flexed to 30 degrees with excruciating pain with any additional flexion, no pain with extension, port sites over knee are clean dry and intact, erythema over the anterior portion of knee red and warm, no tenderness in the hip. NEURO EXAM: Normal sensorium Medical Decision & Procedures ER Provider Diagnostic Interpretation: Xray results per the radiologist and my interpretation. Other results have been interpreted by the radiologist and reviewed by me. CHEST ONE VIEW PORTABLE FINDINGS: Moderate cardiomegaly. Prior median sternotomy. Diaphragms smooth. Lungs are clear. IMPRESSION: Moderate cardiomegaly. Otherwise negative study Electronically signed by: Chao Drew M.D. 07/08/2016 2:37 PM Dictated Date/Time: 07/08/2016 2:36 PM CHEST ONE VIEW PORTABLE FINDINGS: Moderate cardiomegaly. Prior median sternotomy. Diaphragms smooth. Lungs are clear. IMPRESSION: Moderate cardiomegaly. Otherwise negative study Electronically signed by: Chao Drew M.D. 07/08/2016 2:37 PM Dictated Date/Time: 07/08/2016 2:36 PM Venous Doppler right leg RIGHT VENOUS DOPP LOWER EXT UNILAT COMPARISON STUDY: None FINDINGS: Normal study IMPRESSION: Normal study Electronically signed by: Chao Drew M.D. 07/08/2016 5:41 PM Dictated Date/Time: 07/08/2016 5:40 PM Laboratory Results 07/08/16 15:09 Red Blood Count 3.68, Mean Corpuscular Volume 96.2, Mean Corpuscular Hemoglobin 32.6, Mean Corpuscular Hemoglobin Concent 33.9, Mean Platelet Volume 9.4, Neutrophils (%) (Auto) 72.7, Lymphocytes (%) (Auto) 12.7, Monocytes (%) (Auto) 14.0, Eosinophils (%) (Auto) 0.2, Basophils (%) (Auto) 0.1, Neutrophils # (Auto ) 8.55, Lymphocytes # (Auto) 1.49, Monocytes # (Auto) 1.65, Eosinophils # (Auto ) 0.02, Basophils # (Auto) 0.01 07/08/16 14:30 Test 07/08/16 14:30 07/08/16 15:09 07/08/16 15:17 07/08/16 15:40 Erythrocyte Sedimentation Rate 3 mm/hr (0-21) Prothrombin Time 12.1 SECONDS (9.0-12.0) Prothromb Time International Ratio 1.1 (0.9-1.1) Anion Gap 11.0 mmol/L (3-11) Est Creatinine Clear Calc Drug Dose 76.1 ml/min Estimated GFR () 96.5 Estimated GFR (Non- 83.2 BUN/Creatinine Ratio 11.8 (10-20) Calcium Level 8.4 mg/dl (8.5-10.1) Magnesium Level 1.6 mg/dl (1.8-2.4) Total Bilirubin 0.9 mg/dl (0.2-1) Direct Bilirubin 0.3 mg/dl (0-0.2) Aspartate Amino Transf (AST/SGOT) 34 U/L (15-37) Alanine Aminotransferase (ALT/SGPT) 43 U/L (12-78) Alkaline Phosphatase 64 U/L (45-117) Total Creatine Kinase U/L (26-192) Creatine Kinase MB ng/ml (0.5-3.6) Creatine Kinase MB Ratio (0-3.0) Troponin I ng/ml (0-0.045) C-Reactive Protein 5.85 mg/dl (0-0.29) Total Protein 6.3 gm/dl (6.4-8.2) Albumin 3.1 gm/dl (3.4-5.0) White Blood Count 11.75 K/uL (4.8-10.8) Red Blood Count 3.68 M/uL (4.2-5.4) Hemoglobin 12.0 g/dL (12.0-16.0) Hematocrit 35.4 % (37-47) Mean Corpuscular Volume 96.2 fL (80-100) Mean Corpuscular Hemoglobin 32.6 pg (25-34) Mean Corpuscular Hemoglobin Concent 33.9 g/dl (32-36) Platelet Count 224 K/uL (130-400) Mean Platelet Volume 9.4 fL (7.4-10.4) Neutrophils (%) (Auto) 72.7 % Lymphocytes (%) (Auto) 12.7 % Monocytes (%) (Auto) 14.0 % Eosinophils (%) (Auto) 0.2 % Basophils (%) (Auto) 0.1 % Neutrophils # (Auto) 8.55 K/uL (1.4-6.5) Lymphocytes # (Auto) 1.49 K/uL (1.2-3.4) Monocytes # (Auto) 1.65 K/uL (0.11-0.59) Eosinophils # (Auto) 0.02 K/uL (0-0.5) Basophils # (Auto) 0.01 K/uL (0-0.2) RDW Standard Deviation 45.5 fL (36.4-46.3) RDW Coefficient of Variation 13.1 % (11.5-14.5) Immature Granulocyte % (Auto) 0.3 % Immature Granulocyte # (Auto) 0.03 K/uL (0.00-0.02) Activated Partial Thromboplast Time 37.8 SECONDS (21.0-31.0) Partial Thromboplastin Ratio 1.5 Bedside Lactic Acid Venous 1.11 mmol/L (0.90-1.70) Synovial Fluid Source KNEE Synovial Fluid Color RED Synovial Fluid Appearance BLOODY Synovial Fluid WBC 9895 /uL (0-200) Synovial Fluid RBC [id number] /uL Synovial Fluid Polynuclear WBCs % 88.8 % Synovial Fluid Mononuclear WBCs % 11.2 % Laboratory results per my review. Medications Administered Medications (Trade) Dose Ordered Sig/Ramesh Route Start Time Stop Time Status Last Admin Dose Admin Sodium Chloride (Nss 1000ml) 1,000 ml @ 999 mls/hr Q1H1M STAT IV 07/08/16 13:15 07/08/16 14:15 DC 07/08/16 14:12 999 MLS/HR Acetaminophen (Tylenol Tab) 1,000 mg NOW STAT PO 07/08/16 13:15 07/08/16 13:17 DC 07/08/16 14:11 1,000 MG Morphine Sulfate (MoRPHine SULFATE INJ) 6 mg NOW STAT IV 07/08/16 13:15 07/08/16 13:17 DC 07/08/16 14:12 6 MG Ceftriaxone Sodium (Rocephin Inj) 1 gm NOW STAT IV 07/08/16 14:59 3/5/17 15:00 DC 07/08/16 15:07 1 GM Aspirin (Aspirin Chew) 324 mg NOW STAT PO 07/08/16 16:27 07/08/16 16:29 DC 07/08/16 16:39 324 MG ECG Indication: other (knee pain) Rate (beats per minute): 68 Rhythm: sinus rhythm Findings: Q waves (Septal), other (normal axis, poor baseline in inferior) ED Course ED COURSE: Vital signs were reviewed and showed hypertension and febrile The patients medical record was reviewed The above diagnostic studies were performed and reviewed. ED treatments and interventions as stated above. 1307: The patient was evaluated in room C10. A complete history and physical examination was performed. 1315: Morphine Sulfate 6mg IV, Tylenol Tab 1000mg PO, Sodium Chloride 1000 ml @ 999 mls/hr IV. 1459: Rocephin Inj 1gm IV. 1510: I spoke to Dr. Bonilla of orthopedics. He is coming in to tap the knee. 1627: Aspirin 324mg PO. 1629: I reviewed the patient's case with Dr. Leyva. He will evaluate the patient for further management.n 1637: Upon reevaluation, the patient is hemodynamically stable.I discussed my findings with the patient and she understands and agrees with the treatment plan. Based on the patients age, coexisting illnesses, exam and lab findings the decision to treat as an inpatient was made. The patient remained stable while under my care. The patient will be evaluated for further management. Medical Decision Differential diagnosis: Etiologies such as fracture, dislocation, neurovascular compromise, compartment syndrome, soft tissue injury, as well as others were entertained. Patient is a 70-year-old female who presents the ER for right knee pain that she recently had right knee arthroscopic who presents today with severe right knee pain unable to flex beyond 30 associated with a fever of 38. She is mild leukocytosis of 11.7 thousand. BMP was unremarkable. Magnesium was slightly low 1.6. Troponin was positive at 0.176. Duplex of her right lower extremity was unremarkable. Discussed case with orthopedics and he tapped her knee. It was not infected. It was a hemarthrosis. Chest x-ray was unremarkable. Patient was admitted to internal medicine with overlying erythema of the right knee with her recent surgery fever and mild congestion along with a positive troponin. She currently denies any chest pain or shortness breath. On recurrent evaluation she thinks that she may have had some mild chest pain in the morning which she over looked due to the pain of her knee. Consults Time Called: 1505 Consulting Physician: Dr. Bonilla Returned Call: [address] Bonilla of orthopedics. He is coming in to tap the knee. Additional Consults: Time Called: 1625 Consulted Physician: Dr. Leyva Returned Call: 1629 Additional Comments: I reviewed the patient's case with Dr. Leyva. He will evaluate the patient for further management. Impression Primary Impression: Knee pain Additional Impressions: Fever Elevated troponin Hemarthrosis following procedure Scribe Attestation The scribe's documentation has been prepared under my direction and personally reviewed by me in its entirety. I confirm that the note above accurately reflects all work, treatment, procedures, and medical decision making performed by me. Departure Information Dispostion Being Evaluated By Hospitalist Referrals ,Anant Aguilar M.D. (PCP) Patient Instructions My [facility] Problem Qualifiers Primary Impression: Knee pain Laterality: right Chronicity: acute Qualified Codes: M25.561 - Pain in right knee Additional Impressions: Fever Fever type: unspecified Qualified Codes: R50.9 - Fever, unspecified Hemarthrosis following procedure Encounter type: initial encounter Qualified Codes: T88.8XXA - Other specified complications of surgical and medical care, not elsewhere classified, initial encounter; M25.00 - Hemarthrosis, unspecified joint
--- NOTE | 2016-07-08 19:47 | Pharmacy Progress Note ---
Pharmacy Antibiotic Consult Date of Service: Jul 08, 2016. Pharmacy Dosing Scope Pharmacy is consulted to initiate vancomycin IV dosing therapy, order appropriate labs and adjust drug dose/frequency. Subjective The patient is a 70 year old female admitted on Jul 08, 2016 at 17:00 with a swollen right knee associated with fever/leukocytosis and elevated troponin. She had a knee arthroscopy on Saturday. She has a history of AVR x 2 on warfarin. The orthopedic surgeon aspirated the joint this evening and reported old blood with no purulent material. Objective Height (Feet): 5 Height (Inches): 6.00 Weight (Kilograms): 76.800 Lab Results (24hrs): Laboratory Tests Test 07/08/16 14:30 07/08/16 15:09 BUN/Creatinine Ratio 11.8 Blood Urea Nitrogen 9 mg/dl Creatinine 0.74 mg/dl White Blood Count 11.75 K/uL Red Blood Count 3.68 M/uL Hemoglobin 12.0 g/dL Hematocrit 35.4 % Mean Corpuscular Volume 96.2 fL Mean Corpuscular Hemoglobin 32.6 pg Mean Corpuscular Hemoglobin Concent 33.9 g/dl Platelet Count 224 K/uL Mean Platelet Volume 9.4 fL Neutrophils (%) (Auto) 72.7 % Lymphocytes (%) (Auto) 12.7 % Monocytes (%) (Auto) 14.0 % Eosinophils (%) (Auto) 0.2 % Basophils (%) (Auto) 0.1 % Neutrophils # (Auto) 8.55 K/uL Lymphocytes # (Auto) 1.49 K/uL Monocytes # (Auto) 1.65 K/uL Eosinophils # (Auto) 0.02 K/uL Basophils # (Auto) 0.01 K/uL Assessment & Plan Loading dose: vancomycin 2000 (25 mg/kg) mg IV X 1 dose then: vancomycin 1200 mg IV every 12 hours (15 mg/kg, population pharmacokinetics suggest a half-life of 10.34 hr and an elimination constant of 0.067 hr-1). Goal peak level estimate: between 35 - 40 mcg/mL. Goal trough level estimate: between 15 - 20 mcg/mL (indication: joint infection ). Trough has been ordered for: prior to 0800 dose. Pharmacy will continue to follow and will adjust dose/frequency as necessary. Thank you
[2016-07-08 20:00] VITALS: O2SAT 95
[2016-07-08] MEDS: OXYCODONE/ACETAMINOPHEN 5-325 TAB PO PRN (20:01)
[2016-07-08] MEDS: MAGNESIUM OXIDE 400 MG TAB PO SCH (20:38)
[2016-07-08] MEDS: LEVOTHYROXINE 88 MCG TAB PO SCH (20:38)
[2016-07-08] MEDS: CARVEDILOL 3.125 MG TAB PO SCH (20:39)
[2016-07-08] MEDS: HEPARIN 25,000 UNIT/500ML D5W 500 ML IV PRN (20:51)
[2016-07-08] MEDS ORDERED: METOPROLOL TARTRATE 25 MG TAB PO SCH (21:00)
--- NOTE | 2016-07-08 22:34 | ORTHOPEDIC CONSULTATION ---
DATE OF CONSULTATION: 07/08/2016 CHIEF COMPLAINT: Right knee pain. HISTORY OF PRESENT ILLNESS: The patient is a 70-year-old female who underwent a right knee arthroscopy, per Dr. Vega on Saturday. She underwent a right knee arthroscopy, partial lateral meniscectomy, chondroplasty, removal of medial plica. She had been doing well until yesterday. She started having increasing pain and slight swelling in the knee. Today, she had a progression of her pain to the point where she is unable to bear weight. PAST MEDICAL HISTORY: Blood clots in the past and is on anticoagulation therapy. She is on both Lovenox as well as Coumadin currently. She states that she has had some slight no new trauma. Aortic valve replacement, bilateral carotid bruits, diverticulosis, gout, hyperglycemia, hypertension, hypothyroidism, psoriasis, history of cardiomyopathy, history of pulmonary embolism. PAST SURGICAL HISTORY: Aortic valve replacement x2 with a bovine heart valve in 2001, a mechanical valve in 2010, tonsillectomy, hysterectomy, basal cell carcinoma from the nose and right knee arthroscopy. FAMILY HISTORY: Noncontributory. SOCIAL HISTORY: She is a previous smoker. MEDICATIONS: Currently on Lovenox as well as Coumadin. REVIEW OF SYSTEMS: As above. PHYSICAL EXAMINATION: VITAL SIGNS: Temperature is 38, pulse 62, and BP 143/75. GENERAL: Alert and oriented x3, in no acute distress. Mood and affect normal. She is pleasant, cooperative with examination. HEENT: Atraumatic. CHEST: Clear. CARDIOVASCULAR: Regular rate and rhythm. ABDOMEN: Soft, nontender. EXTREMITIES: Right knee: She holds the knee in a slightly flexed position at about 20 degrees. The portal sites are closed with nylon. No surrounding erythema. There is a touch of bloody drainage from the lateral portal, the other 2 portals are clean and dry. There is no purulent drainage, no significant surrounding erythema. Distally neurologically intact. No pain with Homans'. LABORATORY DATA: White blood cell count 11.75, hemoglobin 12, platelets 224. INR is 1.1. PTT is 37.8. IMAGING DATA: X-ray of the knee demonstrates an effusion. ASSESSMENT: Right knee pain status post right knee arthroscopy with intraarticular hematoma. PLAN: Given the patient's history is concerning that she may have developed an intraarticular hematoma versus developing another postoperative infection. Her white blood cell count is elevated just a touch at 11.75. I aspirated the knee and got about 30 mL of clotting blood. There is no real cloudiness to the fluid. No concern of infection and the fluid appeared to be old blood. She is currently going to be admitted per medicine for some IV antibiotics as well as evaluation for elevated troponin. We will follow the cultures from the aspirate, but my initial impression is that this is likely on a postoperative hemarthrosis. BG
[2016-07-08 23:31] VITALS: BP 146/81; PULSE 77; TEMP 36.8; O2SAT 95
[2016-07-09] VITALS (12 sets, daily range): BP systolic 137–167; BP diastolic 73–86; PULSE 70–78; TEMP 37–37.4; O2SAT 92–95
[2016-07-09 03:36] LABS: BASO % 0.1 %; BASO ABS # 0.01 K/uL (0-0.2); COMPLETE YES; EOS % 0.8 %; HEMATOCRIT 31.7 % (37-47); IG% 0.2 %; LYMPH % 16.8 %; LYMPH ABS # 1.52 K/uL (1.2-3.4); MEAN CELL VOLUME 96.1 fL (80-100); MEAN CORPUSCULAR HGB CONC 34.4 g/dl (32-36); MONO % 12.6 %; NEUT % 69.5 %; PLATELET COUNT 200 K/uL (130-400); WHITE BLOOD COUNT 9.03 K/uL (4.8-10.8)
[2016-07-09] MEDS: OXYCODONE/ACETAMINOPHEN 5-325 TAB PO PRN ×4 (03:49→20:07)
[2016-07-09 03:56] LABS: PARTIAL THROMBOPLASTIN RATIO 2.3
[2016-07-09 03:59] LABS: ALT/SGPT 35 U/L (12-78); AST/SGOT 24 U/L (15-37); BLOOD UREA NITROGEN 8 mg/dl (7-18); CALCIUM 7.8 mg/dl (8.5-10.1); CARBON DIOXIDE 28 mmol/L (21-32); CHLORIDE 106 mmol/L (98-107); CREATININE 0.57 mg/dl (0.60-1.20); GLUCOSE 105 mg/dl (70-99); POTASSIUM 3.5 mmol/L (3.5-5.1); SODIUM 143 mmol/L (136-145)
[2016-07-09 04:15] LABS: ALKALINE PHOSPHATASE 60 U/L (45-117); CHOLESTEROL 146 mg/dl (0-200); CHOLESTEROL/HDL RATIO 2.8; HDL CHOLESTEROL 53 mg/dl; LDL CHOLESTEROL CALCULATED 71 mg/dl; PHOSPHORUS 2.3 mg/dl (2.5-4.9); TRIGLYCERIDES 108 mg/dl (0-150); VERY LOW DENSITY LIPOPROT CALC 22 mg/dl
[2016-07-09] MEDS: MAGNESIUM OXIDE 400 MG TAB PO SCH ×2 (08:02→20:09)
[2016-07-09] MEDS: PANTOprazole SOD 40 MG TAB PO SCH (08:03)
[2016-07-09] MEDS: ASPIRIN 81 MG ECTAB PO SCH (08:03)
[2016-07-09] MEDS: CARVEDILOL 3.125 MG TAB PO SCH (08:03)
[2016-07-09] MEDS: FEXOFENADINE HCL 180 MG TAB PO SCH (08:04)
[2016-07-09] MEDS: VANCOMYCIN INJ 1,200 MG in SODIUM CHLORIDE 0.9% 250ML 250 ML IV SCH ×2 (08:14→19:30)
[2016-07-09] MEDS ORDERED: OXYCODONE/ACETAMINOPHEN 5-325 TAB PO STA (11:32)
--- NOTE | 2016-07-09 11:35 | ECHOCARDIOGRAM REPORT ---
*NOTICE TO RECEIVING CONSTITUTION PARTY AGENCY This information is strictly Confidential and protected under [place] law. [place] law prohibits you from making any further disclosure of this information unless further disclosure is expressly permitted by the written consent of the person to whom it pertains or is authorized by law. A general authorization for the release of medical or other information is not sufficient for this purpose. Hospital accepts no responsibility if the information is made available to any other person, INCLUDING THE PATIENT. Interpretation Summary * Name: KAUR PRICE Study Date: 07/09/2016 07:00 AM BP: 138/73 mmHg * Patient Location: C.2E\S\E205\S\1 HR: 64 * : 1945 (M/d/yyyy) Gender: Female Height: 66 in * Age: 70 yrs Ethnicity: [place] Weight: 169 lb * Ordering Physician: Alex Leyva * Referring Physician: Jh Vega D.O. * Performed By: Aamir Maciel RCS * * Reason For Study: Septic Right Knee, Elevated Troponins, Hx of AVR * BSA: 1.9 m2 * -- Conclusions -- * 1. Normal LV size, mild concentric LVH. * 2. Normal LV systolic function. LVEF 60-65%. No regional wall motion abnormalities. * 3. Normal RV size and function. * 4. Grade II diastolic dysfunction. * 5. Mechanical aortic valve in place. Expected transvalvular gradients. Trace AI. * 6. Mild MR. * 7. Normal estimated RA and PA pressures. * 8. Mildly dilated ascending aorta (4.5 cm). * 9. Compared with prior study on 09/07/2010: Mechanical Aortic valve is new. LV function is now normal. Procedure Details * A complete two-dimensional transthoracic echocardiogram was performed (2D, M-mode, Doppler and color flow Doppler). Left Ventricle * The left ventricle is grossly normal size. * There is mild concentric left ventricular hypertrophy. * The basal septum is thickened and angulated consistent with sigmoid septum. * Ejection Fraction = 60-65%. * No regional wall motion abnormalities noted. Right Ventricle * The right ventricle is grossly normal size. * The right ventricular systolic function is qualitatively normal. Atria * The left atrium is moderately dilated. * The right atrium is mildly dilated. * No ASD detected; PFO is not assessed. Mitral Valve * There is mild mitral annular calcification. * There is borderline mitral valve prolapse. * Mitral stenosis is absent. * There is mild mitral regurgitation. Tricuspid Valve * The tricuspid valve is not well visualized, but is grossly normal. * There is no tricuspid stenosis. * There is mild tricuspid regurgitation. * Right ventricular systolic pressure is normal. Aortic Valve * Trace aortic regurgitation. * There is a mechanical aortic valve. * The gradient is normal for this prosthetic aortic valve. Pulmonic Valve * The pulmonary valve is inadequately visualized, but the Doppler data is adequate for interpretation. * There is no pulmonic valvular stenosis. * Mild pulmonic valvular regurgitation. Great Vessels * Mildly dilated ascending aorta. * Ascending aorta 4.5 cm Pericardium/Pleural * There is no pericardial effusion. Great Vessels * Normal inferior vena cava size and collapsability with sniff indicates a normal right atrial pressure of 3 mmHg Left Ventricular Diastolic Function * Diastolic dysfunction, Grade II (pseudonormalization pattern). MMode 2D Measurements and Calculations IVSd 1.3 cm IVSs 1.8 cm LVIDd 5.5 cm LVIDs 3.1 cm LVPWd 1.2 cm LVPWs 2.1 cm IVS/LVPW 1.1 FS 43.4 % EDV(Teich) 145.4 ml ESV(Teich) 37.7 ml EF(Teich) 74.1 % EDV(cubed) 163.4 ml ESV(cubed) 29.6 ml EF(cubed) 81.9 % % IVS thick 36.7 % % LVPW thick 70.4 % LV mass(C)d 294.1 grams LV mass(C)dI 157.9 grams/m\S\2 LV mass(C)s 260.3 grams LV mass(C)sI 139.8 grams/m\S\2 CO(Teich) 9.0 l/min CI(Teich) 4.9 l/min/m\S\2 SV(Teich) 107.7 ml SI(Teich) 57.9 ml/m\S\2 CO(cubed) 11.2 l/min CI(cubed) 6.0 l/min/m\S\2 SV(cubed) 133.8 ml SI(cubed) 71.9 ml/m\S\2 Ao root diam 4.1 cm Ao root area 13.1 cm\S\2 LA dimension 4.5 cm LA/Ao 1.1 LVAd ap4 35.5 cm\S\2 LVLd ap4 9.0 cm EDV(MOD-sp4) 116.0 ml LVAs ap4 19.5 cm\S\2 LVLs ap4 7.9 cm ESV(MOD-sp4) 41.0 ml EF(MOD-sp4) 64.7 % LVAd ap2 29.7 cm\S\2 LVLd ap2 9.2 cm EDV(MOD-sp2) 82.0 ml LVAs ap2 17.2 cm\S\2 LVLs ap2 7.6 cm ESV(MOD-sp2) 35.0 ml EF(MOD-sp2) 57.3 % CO(MOD-sp4) 6.3 l/min CI(MOD-sp4) 3.4 l/min/m\S\2 SV(MOD-sp4) 75.0 ml SI(MOD-sp4) 40.3 ml/m\S\2 CO(MOD-sp2) 3.9 l/min CI(MOD-sp2) 2.1 l/min/m\S\2 SV(MOD-sp2) 47.0 ml SI(MOD-sp2) 25.2 ml/m\S\2 Doppler Measurements and Calculations MV E max phyllis 108.0 cm/sec MV A max phyllis 67.9 cm/sec MV E/A 1.6 MV P1/2t max phyllis 128.7 cm/sec MV P1/2t 88.7 msec MVA(P1/2t) 2.5 cm\S\2 MV dec slope 424.9 cm/sec\S\2 MV dec time 0.22 sec Ao V2 max 229.3 cm/sec Ao max PG 21.1 mmHg Ao max PG (full) 16.6 mmHg LV V1 max PG 4.5 mmHg LV V1 max 106.1 cm/sec PA V2 max 101.5 cm/sec PA max PG 4.1 mmHg PI max phyllis 170.5 cm/sec PI max PG 11.6 mmHg PI dec slope 111.3 cm/sec\S\2 PI P1/2t 448.8 msec TR max phyllis 277.0 cm/sec
--- NOTE | 2016-07-09 12:05 | Hospitalist Progress Note ---
Hospitalist Progress Note Date of Service Jul 09, 2016. (Linda Cevallos PA-C) Subjective Pt evaluation today including: conversation w/ patient, physical exam, chart review, lab review, review of studies, review of inpatient medication list Right knee pain has somewhat improved. Was able to ambulate to the bedside commode with a walker. She denies any fever or chills. She is complaining of a mild headache. The Percocet is helping with the headache and the knee pain. Denies any nausea. No chest pain or pressure. She denies any shortness of breath. No heart palpitations or dizziness. Additional Comments: 6 system review negative. Please see pertinent positives in the history of present illness section. (Linda Cevallos PA-C) Objective Vital Signs Date Time Temp Pulse Resp B/P Pulse Ox O2 Delivery O2 Flow Rate FiO2 07/09/16 08:04 37.0 73 93 148/80 93 Room Air 07/09/16 08:00 95 Room Air 07/09/16 04:10 37.4 71 20 138/73 92 Room Air 07/09/16 04:00 92 Room Air 07/09/16 00:01 95 Room Air 07/08/16 23:31 36.8 77 18 146/81 95 Room Air 07/08/16 20:00 95 Room Air 07/08/16 19:07 37.0 56 18 147/76 95 Room Air 07/08/16 17:09 58 07/08/16 16:40 67 18 148/88 07/08/16 16:15 90 Room Air 07/08/16 14:41 62 18 143/75 90 Room Air 07/08/16 12:28 38.0 61 18 174/80 97 Room Air (Linda Cevallos PA-C) Physical Exam General Appearance: no apparent distress Eyes: EOMI ENT: + pertinent finding (oral mucosa moist. No plaque or exudate noted.) Neck: no JVD Respiratory/Chest: + pertinent finding (few crackles noted at the left base.) Cardiovascular: + pertinent finding (systolic click noted. Occasionally irregular) Abdomen: normal bowel sounds, non tender, soft Extremities: + pertinent finding (+2 pitting edema noted in the right lower extremity starting proximal to the knee extending to the foot. Pain with any range of motion of the knee. No drainage noted from the incisions. DP pulse + 1. Able to wiggle her toes.) Neurologic/Psychiatric: no motor/sensory deficits, oriented x 3 Skin: warm/dry (Linda Cevallos PA-C) Laboratory Results 07/08/16 15:09 Red Blood Count 3.68, Mean Corpuscular Volume 96.2, Mean Corpuscular Hemoglobin 32.6, Mean Corpuscular Hemoglobin Concent 33.9, Mean Platelet Volume 9.4, Neutrophils (%) (Auto) 72.7, Lymphocytes (%) (Auto) 12.7, Monocytes (%) (Auto) 14.0, Eosinophils (%) (Auto) 0.2, Basophils (%) (Auto) 0.1, Neutrophils # (Auto ) 8.55, Lymphocytes # (Auto) 1.49, Monocytes # (Auto) 1.65, Eosinophils # (Auto ) 0.02, Basophils # (Auto) 0.01 07/09/16 03:30 Red Blood Count 3.30, Mean Corpuscular Volume 96.1, Mean Corpuscular Hemoglobin 33.0, Mean Corpuscular Hemoglobin Concent 34.4, Mean Platelet Volume 9.0, Neutrophils (%) (Auto) 69.5, Lymphocytes (%) (Auto) 16.8, Monocytes (%) (Auto) 12.6, Eosinophils (%) (Auto) 0.8, Basophils (%) (Auto) 0.1, Neutrophils # (Auto ) 6.27, Lymphocytes # (Auto) 1.52, Monocytes # (Auto) 1.14, Eosinophils # (Auto ) 0.07, Basophils # (Auto) 0.01 07/08/16 14:30 07/09/16 03:30 Test 07/08/16 14:30 07/08/16 15:09 07/08/16 15:17 07/08/16 15:40 Erythrocyte Sedimentation Rate 3 mm/hr (0-21) Prothrombin Time 12.1 SECONDS (9.0-12.0) Prothromb Time International Ratio 1.1 (0.9-1.1) Activated Partial Thromboplast Time 24.3 SECONDS (21.0-31.0) 37.8 SECONDS (21.0-31.0) Partial Thromboplastin Ratio 0.9 1.5 Anion Gap 11.0 mmol/L (3-11) Est Creatinine Clear Calc Drug Dose 76.1 ml/min Estimated GFR () 96.5 Estimated GFR (Non- 83.2 BUN/Creatinine Ratio 11.8 (10-20) Calcium Level 8.4 mg/dl (8.5-10.1) Magnesium Level 1.6 mg/dl (1.8-2.4) Total Bilirubin 0.9 mg/dl (0.2-1) Direct Bilirubin 0.3 mg/dl (0-0.2) Aspartate Amino Transf (AST/SGOT) 34 U/L (15-37) Alanine Aminotransferase (ALT/SGPT) 43 U/L (12-78) Alkaline Phosphatase 64 U/L (45-117) Total Creatine Kinase U/L (26-192) Creatine Kinase MB ng/ml (0.5-3.6) Creatine Kinase MB Ratio (0-3.0) Troponin I ng/ml (0-0.045) C-Reactive Protein 5.85 mg/dl (0-0.29) Total Protein 6.3 gm/dl (6.4-8.2) Albumin 3.1 gm/dl (3.4-5.0) White Blood Count 11.75 K/uL (4.8-10.8) Red Blood Count 3.68 M/uL (4.2-5.4) Hemoglobin 12.0 g/dL (12.0-16.0) Hematocrit 35.4 % (37-47) Mean Corpuscular Volume 96.2 fL (80-100) Mean Corpuscular Hemoglobin 32.6 pg (25-34) Mean Corpuscular Hemoglobin Concent 33.9 g/dl (32-36) Platelet Count 224 K/uL (130-400) Mean Platelet Volume 9.4 fL (7.4-10.4) Neutrophils (%) (Auto) 72.7 % Lymphocytes (%) (Auto) 12.7 % Monocytes (%) (Auto) 14.0 % Eosinophils (%) (Auto) 0.2 % Basophils (%) (Auto) 0.1 % Neutrophils # (Auto) 8.55 K/uL (1.4-6.5) Lymphocytes # (Auto) 1.49 K/uL (1.2-3.4) Monocytes # (Auto) 1.65 K/uL (0.11-0.59) Eosinophils # (Auto) 0.02 K/uL (0-0.5) Basophils # (Auto) 0.01 K/uL (0-0.2) RDW Standard Deviation 45.5 fL (36.4-46.3) RDW Coefficient of Variation 13.1 % (11.5-14.5) Immature Granulocyte % (Auto) 0.3 % Immature Granulocyte # (Auto) 0.03 K/uL (0.00-0.02) Bedside Lactic Acid Venous 1.11 mmol/L (0.90-1.70) Synovial Fluid Source KNEE Synovial Fluid Color RED Synovial Fluid Appearance BLOODY Synovial Fluid WBC 9895 /uL (0-200) Synovial Fluid RBC 6013274 /uL Synovial Fluid Polynuclear WBCs % 88.8 % Synovial Fluid Mononuclear WBCs % 11.2 % Synovial Fluid Crystals Test 07/08/16 23:00 07/09/16 03:30 Total Creatine Kinase 49 U/L (26-192) 43 U/L (26-192) Creatine Kinase MB < 0.5 ng/ml (0.5-3.6) < 0.5 ng/ml (0.5-3.6) Creatine Kinase MB Ratio (0-3.0) (0-3.0) Troponin I 0.159 ng/ml (0-0.045) 0.153 ng/ml (0-0.045) White Blood Count 9.03 K/uL (4.8-10.8) Red Blood Count 3.30 M/uL (4.2-5.4) Hemoglobin 10.9 g/dL (12.0-16.0) Hematocrit 31.7 % (37-47) Mean Corpuscular Volume 96.1 fL (80-100) Mean Corpuscular Hemoglobin 33.0 pg (25-34) Mean Corpuscular Hemoglobin Concent 34.4 g/dl (32-36) Platelet Count 200 K/uL (130-400) Mean Platelet Volume 9.0 fL (7.4-10.4) Neutrophils (%) (Auto) 69.5 % Lymphocytes (%) (Auto) 16.8 % Monocytes (%) (Auto) 12.6 % Eosinophils (%) (Auto) 0.8 % Basophils (%) (Auto) 0.1 % Neutrophils # (Auto) 6.27 K/uL (1.4-6.5) Lymphocytes # (Auto) 1.52 K/uL (1.2-3.4) Monocytes # (Auto) 1.14 K/uL (0.11-0.59) Eosinophils # (Auto) 0.07 K/uL (0-0.5) Basophils # (Auto) 0.01 K/uL (0-0.2) RDW Standard Deviation 45.8 fL (36.4-46.3) RDW Coefficient of Variation 13.2 % (11.5-14.5) Immature Granulocyte % (Auto) 0.2 % Immature Granulocyte # (Auto) 0.02 K/uL (0.00-0.02) Activated Partial Thromboplast Time 58.5 SECONDS (21.0-31.0) Partial Thromboplastin Ratio 2.3 Anion Gap 9.0 mmol/L (3-11) Est Creatinine Clear Calc Drug Dose 98.8 ml/min Estimated GFR () 110.4 Estimated GFR (Non- 95.3 BUN/Creatinine Ratio 14.0 (10-20) Calcium Level 7.8 mg/dl (8.5-10.1) Phosphorus Level 2.3 mg/dl (2.5-4.9) Magnesium Level 2.0 mg/dl (1.8-2.4) Total Bilirubin 0.9 mg/dl (0.2-1) Direct Bilirubin 0.4 mg/dl (0-0.2) Aspartate Amino Transf (AST/SGOT) 24 U/L (15-37) Alanine Aminotransferase (ALT/SGPT) 35 U/L (12-78) Alkaline Phosphatase 60 U/L (45-117) Total Protein 5.5 gm/dl (6.4-8.2) Albumin 2.6 gm/dl (3.4-5.0) Triglycerides Level 108 mg/dl (0-150) Cholesterol Level 146 mg/dl (0-200) HDL Cholesterol 53 mg/dl LDL Cholesterol, Calculated 71 mg/dl VLDL Cholesterol, Calculated 22 mg/dl Cholesterol/HDL Ratio 2.8 Last 24 Hours Test 07/08/16 14:30 07/08/16 15:09 07/08/16 15:17 07/08/16 15:40 Erythrocyte Sedimentation Rate 3 mm/hr Prothrombin Time 12.1 SECONDS Prothromb Time International Ratio 1.1 Activated Partial Thromboplast Time 24.3 SECONDS 37.8 SECONDS Partial Thromboplastin Ratio 0.9 1.5 Sodium Level 142 mmol/L Potassium Level 3.7 mmol/L Chloride Level 103 mmol/L Carbon Dioxide Level 28 mmol/L Anion Gap 11.0 mmol/L Blood Urea Nitrogen 9 mg/dl Creatinine 0.74 mg/dl Est Creatinine Clear Calc Drug Dose 76.1 ml/min Estimated GFR () 96.5 Estimated GFR (Non- 83.2 BUN/Creatinine Ratio 11.8 Random Glucose 107 mg/dl Calcium Level 8.4 mg/dl Magnesium Level 1.6 mg/dl Total Bilirubin 0.9 mg/dl Direct Bilirubin 0.3 mg/dl Aspartate Amino Transf (AST/SGOT) 34 U/L Alanine Aminotransferase (ALT/SGPT) 43 U/L Alkaline Phosphatase 64 U/L Total Creatine Kinase U/L Creatine Kinase MB ng/ml Creatine Kinase MB Ratio Troponin I ng/ml C-Reactive Protein 5.85 mg/dl Total Protein 6.3 gm/dl Albumin 3.1 gm/dl White Blood Count 11.75 K/uL Red Blood Count 3.68 M/uL Hemoglobin 12.0 g/dL Hematocrit 35.4 % Mean Corpuscular Volume 96.2 fL Mean Corpuscular Hemoglobin 32.6 pg Mean Corpuscular Hemoglobin Concent 33.9 g/dl Platelet Count 224 K/uL Mean Platelet Volume 9.4 fL Neutrophils (%) (Auto) 72.7 % Lymphocytes (%) (Auto) 12.7 % Monocytes (%) (Auto) 14.0 % Eosinophils (%) (Auto) 0.2 % Basophils (%) (Auto) 0.1 % Neutrophils # (Auto) 8.55 K/uL Lymphocytes # (Auto) 1.49 K/uL Monocytes # (Auto) 1.65 K/uL Eosinophils # (Auto) 0.02 K/uL Basophils # (Auto) 0.01 K/uL RDW Standard Deviation 45.5 fL RDW Coefficient of Variation 13.1 % Immature Granulocyte % (Auto) 0.3 % Immature Granulocyte # (Auto) 0.03 K/uL Bedside Lactic Acid Venous 1.11 mmol/L Synovial Fluid Source KNEE Synovial Fluid Color RED Synovial Fluid Appearance BLOODY Synovial Fluid WBC 9895 /uL Synovial Fluid RBC [id number] /uL Synovial Fluid Polynuclear WBCs % 88.8 % Synovial Fluid Mononuclear WBCs % 11.2 % Synovial Fluid Crystals Test 07/08/16 23:00 07/09/16 03:30 Total Creatine Kinase 49 U/L 43 U/L Creatine Kinase MB < 0.5 ng/ml < 0.5 ng/ml Creatine Kinase MB Ratio Troponin I 0.159 ng/ml 0.153 ng/ml White Blood Count 9.03 K/uL Red Blood Count 3.30 M/uL Hemoglobin 10.9 g/dL Hematocrit 31.7 % Mean Corpuscular Volume 96.1 fL Mean Corpuscular Hemoglobin 33.0 pg Mean Corpuscular Hemoglobin Concent 34.4 g/dl Platelet Count 200 K/uL Mean Platelet Volume 9.0 fL Neutrophils (%) (Auto) 69.5 % Lymphocytes (%) (Auto) 16.8 % Monocytes (%) (Auto) 12.6 % Eosinophils (%) (Auto) 0.8 % Basophils (%) (Auto) 0.1 % Neutrophils # (Auto) 6.27 K/uL Lymphocytes # (Auto) 1.52 K/uL Monocytes # (Auto) 1.14 K/uL Eosinophils # (Auto) 0.07 K/uL Basophils # (Auto) 0.01 K/uL RDW Standard Deviation 45.8 fL RDW Coefficient of Variation 13.2 % Immature Granulocyte % (Auto) 0.2 % Immature Granulocyte # (Auto) 0.02 K/uL Activated Partial Thromboplast Time 58.5 SECONDS Partial Thromboplastin Ratio 2.3 Sodium Level 143 mmol/L Potassium Level 3.5 mmol/L Chloride Level 106 mmol/L Carbon Dioxide Level 28 mmol/L Anion Gap 9.0 mmol/L Blood Urea Nitrogen 8 mg/dl Creatinine 0.57 mg/dl Est Creatinine Clear Calc Drug Dose 98.8 ml/min Estimated GFR () 110.4 Estimated GFR (Non- 95.3 BUN/Creatinine Ratio 14.0 Random Glucose 105 mg/dl Calcium Level 7.8 mg/dl Phosphorus Level 2.3 mg/dl Magnesium Level 2.0 mg/dl Total Bilirubin 0.9 mg/dl Direct Bilirubin 0.4 mg/dl Aspartate Amino Transf (AST/SGOT) 24 U/L Alanine Aminotransferase (ALT/SGPT) 35 U/L Alkaline Phosphatase 60 U/L Total Protein 5.5 gm/dl Albumin 2.6 gm/dl Triglycerides Level 108 mg/dl Cholesterol Level 146 mg/dl HDL Cholesterol 53 mg/dl LDL Cholesterol, Calculated 71 mg/dl VLDL Cholesterol, Calculated 22 mg/dl Cholesterol/HDL Ratio 2.8 (Linda Cevallos PA-C) Assessment and Plan 70-year-old female presents the emergency department with significant swelling and pain in the right lower extremity status post arthroplasty of the right knee 3 days ago bridged with Lovenox for hx AVR-restarted coumadin POD#1 Severe right knee pain-aspiration performed by orthopedics. Thought to be likely hemarthrosis. There are however notable WBCs. Cannot completely rule out septic joint. -Continue vancomycin for now -Follow up aspiration cultures -Continue Percocet. Increase dose to 2 tabs every 4 hours as needed -PT/OT History of AVR x 2. Now has mechanical valve -continue heparin drip Elevated troponin-? secondary to leak. No ischemic changes noted on the EKG. Echo with no wall motion abnormalities. EF preserved at 60-65% -Continue Coreg 6.25 mg BID HTN -Coreg as noted above -Continue spironolactone 25 mg daily Hypothyroidism -Continue Synthroid 88 g daily DVT prophylaxis -heparin gtt -TEDS, SCDs CODE STATUS -LEVEL I FULL CODE DISPO -May need acute rehabilitation pending PT/OT evaluations (Linda Cevallos, PA-C) PA Physician Supervision Note: I interviewed and examined the patient. Discussed with Norbert Cevallos PAC and agree with findings and plan as documented in the note. Any exceptions or clarifications are listed here: None this pt is still with significant knee pain and swelling. Ortho is feeling this is hemarthrosis vitals reviewed, labs checked car is regular with murmur lungs are clear Hemarthrosis after arthroscopy, previously on full anticoagulation will continue with iv heparin for another day and discuss full AC with cardiology Documented By: Lenard Valladares (Lenard Valladares M.D.)
[2016-07-09] MEDS ORDERED: CARVEDILOL 3.125 MG TAB PO ONE (12:15)
--- NOTE | 2016-07-09 12:45 | CARDIOLOGY CONSULTATION ---
DATE OF CONSULTATION: 07/09/2016 DATE OF CONSULTATION: 07/09/2016. CONSULTATION REQUESTED BY: Dr. Leyva. REASON FOR CONSULTATION: Elevated troponin/mechanical aortic valve. OUTPATIENT [employer] ARCHITECT: Dr. Whitten. HISTORY OF PRESENT ILLNESS: Ms. Torres is a very pleasant 70-year-old woman with a cardiac history that includes bicuspid aortic valve with severe aortic stenosis, status post initial bioprosthetic aortic valve replacement in 2001 with subsequent bioprosthetic failure and recurrent aortic stenosis complicated by severe LV dysfunction requiring mechanical aortic valve replacement in 2010, hypertension, prior DVT/PE who was admitted with recurrent knee pain following recent arthroscopy. On initial workup, patient noted to have elevated troponin and cardiology consulted in further management and anticoagulation recommendations. From a cardiac standpoint, the patient has been stable since her aortic valve replacement in 2010. Her LV function returned to normal on repeat echo in 2012. She has been maintained on anticoagulation with Coumadin with relatively stable INRs. She was seen by cardiology clinic prior to her most recent arthroscopy with plan for Lovenox bridging. She underwent arthroscopy with meniscal repair/cartilage repair and [place] cyst drainage on Saturday, [address] Vega. She states that she initially was feeling well when she was home, she was progressing on her crutches, was walking without them on Saturday, then Saturday evening developed severe swelling and pain in her right knee and down into her robles and foot. She was unable to put any weight on her foot, unable to sleep and presented to the Emergency Department the following day. Upon presentation the patient had a low grade fever to 38.0. Her blood pressure was elevated to 170s. She underwent a tap of her right knee by orthopedics, which was primarily bloody with over 3 million red blood cells. There was also elevated white blood cells of approximately 9000. She was started on vancomycin and as her initial troponin on presentation was positive at 0.17, she was also switched from Lovenox to IV heparin. Last dose of Lovenox yesterday a.m. Since that time her knee has felt somewhat better. She has had no chest pain, palpitations or shortness of breath during any part of his hospitalization. Her troponin has trended down, now down to 0.159 and 0.153. EKG has shown no significant abnormalities. PAST MEDICAL HISTORY: 1. Bicuspid aortic valve with aortic stenosis. 2. Status post bioprosthetic aortic valve replacement in 2001. 3. Status post aortic valve replacement, mechanical aortic valve in 2011, prior valvular heart disease with severe LV dysfunction, EF 15% in 2011 now normal. 4. Prior history of DVT in the setting of prolonged plane ride, prior questionable PE in the past. 5. Varicose veins status post GSV ablation. 6. Hypothyroidism. 7. Psoriasis. 8. Popliteal cyst. 9. Osteoarthritis. 10. Gout. 11. Allergic rhinitis. HOME MEDICATIONS: Aspirin 81, Caltrate, carvedilol 6.25 b.i.d., sildenafil, clobetasol ointment, Coumadin, fexofenadine, levothyroxine, multivitamin, Ocuvite capsule, probiotic, saline nasal spray, spironolactone, vitamin C, vitamin D. ALLERGIES: SULFA DRUGS CAUSES HIVES AND ITCHING. SOCIAL HISTORY: Drinks alcohol, wine daily. Quit tobacco in 1980. Prior to that smoked approximately a pack per day for 10 years. FAMILY HISTORY: Noncontributory. REVIEW OF SYSTEMS: Ten point review of systems was completed and otherwise negative unless listed in HPI. PHYSICAL EXAMINATION: VITAL SIGNS: Temperature 37, pulse 56, blood pressure 147/76. She is satting 95% on room air. GENERAL: The patient appears comfortable in no acute distress. HEAD, EYES, EARS, NOSE, AND THROAT: Sclerae are anicteric. Oropharynx clear. Mucous membranes are moist. NECK: Supple with no lymphadenopathy. LUNGS: Clear to auscultation bilaterally. CARDIAC: She has a crisp mechanical aortic valve closure sound with 2/6 systolic ejection murmur. She has occasional premature beats. Otherwise, no murmurs, rubs or gallops. ABDOMEN: Soft, nontender, nondistended with positive bowel sounds. EXTREMITIES: Warm. She has 1+ lower extremity edema in the right leg. She has intact distal DP and PT pulses bilaterally and normal cap refill. Dressing in place over right knee. Distal to right knee area is warm. There is no surrounding erythema. SKIN: No rashes or lesions. NEUROLOGIC: Grossly nonfocal. PSYCHIATRIC: Alert and oriented x3. Mood and affect is appropriate. LABORATORY DATA: Sodium 143, potassium 3.5, BUN is 8, creatinine 0.6. LFTs within normal limits. Troponin 0.176, 0.159, 0.153, total cholesterol 146, triglycerides 108, LDL 71, HDL 53, white blood cell count of 9.0, hemoglobin of 10.9, platelets of 200. PTT is 58.5. IMAGIN. Knee x-ray showed a complex joint effusion raising possibility of post-procedural joint space infection. 2. Lower extremity ultrasound showed no evidence of DVT. 3. Chest x-ray showed moderate cardiomegaly, otherwise negative study. 4. EKG showed sinus rhythm with sinus arrhythmia, no dynamic ST changes. Telemetry showed sinus rhythm. There were occasional PVCs, one episode of questionable wide complex tachycardia, 9 beats. 5. Echo reviewed from today showed preserved function with an EF of 60-65%, no regional wall motion abnormalities, mechanical aortic valve functioning appropriately. IMPRESSION AND PLAN: 1. Right lower extremity pain; question postoperative hemoarthrosis versus possible infection. 2. Elevated troponin. 3. Mechanical aortic valve. 4. History of venous thromboembolism. 5. Hypertension. 6. Nonsustained wide complex tachycardia on telemetry. Patient with mild troponin elevation on presentation gradually trending down. No EKG changes and echo is unchanged. The patient has been asymptomatic from a cardiac standpoint and very low suspicion that the patient's current troponin elevation represents a plaque rupture acute coronary syndrome. Would continue on aspirin and beta alexus. Decision regarding need for further risk stratification can be deferred to Dr. Whitten as an outpatient. In regards to anticoagulation going forward, in the setting of severe hemarthroses with mechanical aortic rather than mitral valve, anticoagulation could potentially be held if absolutey needed. However, with history of prior VTE would prefer to continue at this time. From a cardiac standpoint patient can be switched back to lovenox and restarted on Coumadin when potential bleeding issues thought to be stable from an orthopedic standpoint. We will continue to follow while in the hospital. Thank you for allowing us to participate in the care of this patient. Please contact with any questions. BG
--- NOTE | 2016-07-09 16:35 | Orthopedic Progress Note ---
Orthopedic Progress Note Date of Service Jul 09, 2016. Subjective Additional Notes: Pt lying in bed. present. Pt states that the pain is about the same when getting OOB. Somewhat better while lying in bed. No new complaints. Objective Right knee swollen. Swelling noted down the lower extremity to the foot. Moving the foot well. Sensation intact. Minimal ROM due to pain at this time. No overt erythema. Date Time Temp Pulse Resp B/P Pulse Ox O2 Delivery O2 Flow Rate FiO2 07/09/16 15:41 37.4 75 20 139/80 93 Room Air 07/09/16 12:00 Room Air 07/09/16 11:19 37.0 70 20 164/76 95 Room Air 07/09/16 08:04 37.0 73 93 148/80 93 Room Air 07/09/16 08:00 95 Room Air 07/09/16 04:10 37.4 71 20 138/73 92 Room Air 07/09/16 04:00 92 Room Air 07/09/16 00:01 95 Room Air 07/08/16 23:31 36.8 77 18 146/81 95 Room Air 07/08/16 20:00 95 Room Air 07/08/16 19:07 37.0 56 18 147/76 95 Room Air 07/08/16 17:09 58 07/08/16 16:40 67 18 148/88 Laboratory Results 24 Hours: Test 07/09/16 03:30 White Blood Count 9.03 K/uL Red Blood Count 3.30 M/uL Hemoglobin 10.9 g/dL Hematocrit 31.7 % Mean Corpuscular Volume 96.1 fL Mean Corpuscular Hemoglobin 33.0 pg Mean Corpuscular Hemoglobin Concent 34.4 g/dl Platelet Count 200 K/uL Mean Platelet Volume 9.0 fL Neutrophils (%) (Auto) 69.5 % Lymphocytes (%) (Auto) 16.8 % Monocytes (%) (Auto) 12.6 % Eosinophils (%) (Auto) 0.8 % Basophils (%) (Auto) 0.1 % Neutrophils # (Auto) 6.27 K/uL Lymphocytes # (Auto) 1.52 K/uL Monocytes # (Auto) 1.14 K/uL Eosinophils # (Auto) 0.07 K/uL Basophils # (Auto) 0.01 K/uL Assessment & Plan Assessment: Likely Hemarthrosis s/p R Knee arthroscopy Follow Cx's for now. Would have RLE on 2 pillows to help with Swelling.
[2016-07-09] MEDS: HEPARIN 25,000 UNIT/500ML D5W 500 ML IV PRN (19:45)
[2016-07-09] MEDS: LEVOTHYROXINE 88 MCG TAB PO SCH (20:08)
[2016-07-09] MEDS: CARVEDILOL 6.25 MG TAB PO SCH (20:09)
[2016-07-10] VITALS (11 sets, daily range): BP systolic 144–191; BP diastolic 74–91; PULSE 66–73; TEMP 36.7–37.6; O2SAT 93–98
[2016-07-10] MEDS: OXYCODONE/ACETAMINOPHEN 5-325 TAB PO PRN ×4 (00:02→14:00)
[2016-07-10] MEDS ORDERED: VANCOMYCIN TROUGH SCH (07:30)
[2016-07-10 07:37] LABS: HEMATOCRIT 32.5 % (37-47); MEAN CELL VOLUME 97.9 fL (80-100); MEAN CORPUSCULAR HEMOGLOBIN 32.5 pg (25-34); MEAN CORPUSCULAR HGB CONC 33.2 g/dl (32-36); MEAN PLATELET VOLUME 9.7 fL (7.4-10.4); PLATELET COUNT 231 K/uL (130-400); RED BLOOD COUNT 3.32 M/uL (4.2-5.4); WHITE BLOOD COUNT 9.66 K/uL (4.8-10.8)
[2016-07-10 07:57] LABS: PARTIAL THROMBOPLASTIN RATIO 1.8
[2016-07-10 08:06] LABS: CREATININE 0.59 mg/dl (0.60-1.20)
[2016-07-10] MEDS: ACETAMINOPHEN 325 MG TAB PO PRN (08:16)
[2016-07-10] MEDS: FEXOFENADINE HCL 180 MG TAB PO SCH (08:17)
[2016-07-10] MEDS: ASPIRIN 81 MG ECTAB PO SCH (08:18)
[2016-07-10] MEDS: CARVEDILOL 6.25 MG TAB PO SCH ×2 (08:18→22:00)
[2016-07-10] MEDS: MAGNESIUM OXIDE 400 MG TAB PO SCH ×2 (08:19→22:03)
[2016-07-10] MEDS: PANTOprazole SOD 40 MG TAB PO SCH (08:19)
[2016-07-10] MEDS: HEPARIN 25,000 UNIT/500ML D5W 500 ML IV PRN (08:23)
[2016-07-10] MEDS: VANCOMYCIN INJ 1,200 MG in SODIUM CHLORIDE 0.9% 250ML 250 ML IV SCH ×3 (08:23→22:02)
[2016-07-10] MEDS ORDERED: HEPARIN IV BOLUS 3,000 UNIT in SYRINGE 0 ML IV ONE (08:30)
[2016-07-10] MEDS ORDERED: ENOXAPARIN 1 MG/KG SQ SCH (10:45)
[2016-07-10] MEDS ORDERED: ENOXAPARIN 80 MG/0.8 ML SYR SQ ONE (11:15)
--- NOTE | 2016-07-10 11:59 | Hospitalist Progress Note ---
Hospitalist Progress Note Date of Service Jul 10, 2016. (Linda Cevallos PA-C) Subjective Pt evaluation today including: conversation w/ patient, physical exam, chart review, lab review, conversation w/ senior wind energy consultant, review of inpatient medication list Patient reports continued pain in the right knee. Approximately the same as yesterday. She was able to get out of bed and use the bedside commode. She thinks this is why the pain is not improved. She denies any other symptoms such as chest pain or pressure. She denies any shortness of breath. She denies any dizziness, fever or chills. Her headaches have also improved. Additional Comments: 6 system review negative. Please see pertinent positives in the history of present illness section. (Linda Cevallos PA-C) Objective Vital Signs Date Time Temp Pulse Resp B/P Pulse Ox O2 Delivery O2 Flow Rate FiO2 07/10/16 11:21 36.7 68 18 144/75 98 07/10/16 08:00 36.8 66 18 169/91 96 Room Air 07/10/16 08:00 96 Room Air 07/10/16 04:00 93 Room Air 07/10/16 03:22 37.3 73 15 146/84 93 Room Air 07/09/16 23:59 93 Room Air 07/09/16 23:54 37.0 70 18 167/86 93 Room Air 07/09/16 20:00 93 Room Air 07/09/16 19:30 37.1 78 20 137/74 93 Room Air 07/09/16 16:00 95 Room Air 07/09/16 15:41 37.4 75 20 139/80 93 Room Air 07/09/16 12:00 Room Air (Linda Cevallos PA-C) Physical Exam General Appearance: + mild distress (appears to be in mild discomfort) Eyes: EOMI ENT: + pertinent finding (oral mucosa fairly dry) Neck: no JVD Respiratory/Chest: + pertinent finding (very faint crackles noted at the bases right greater than left) Cardiovascular: + pertinent finding (occasionally irregular. Systolic click noted.) Abdomen: normal bowel sounds, non tender, soft Extremities: + pertinent finding (significant eating edema noted in the right lower extremity starting proximal to the knee extending to the foot. Ecchymosis now starting also. DP pulse +2. Able to move her toes. Dorsiflexion and plantar flexion of the right foot intact. Continued stiffness and swelling noted of the right knee. Poor range of motion.) Neurologic/Psychiatric: no motor/sensory deficits, oriented x 3 Skin: warm/dry (Linda Cevallos PA-C) Laboratory Results 07/10/16 07:07 07/10/16 07:07 Test 07/10/16 07:07 Red Blood Count 3.32 M/uL (4.2-5.4) Mean Corpuscular Volume 97.9 fL (80-100) Mean Corpuscular Hemoglobin 32.5 pg (25-34) Mean Corpuscular Hemoglobin Concent 33.2 g/dl (32-36) RDW Standard Deviation 47.1 fL (36.4-46.3) RDW Coefficient of Variation 13.3 % (11.5-14.5) Mean Platelet Volume 9.7 fL (7.4-10.4) Activated Partial Thromboplast Time 46.0 SECONDS (21.0-31.0) Partial Thromboplastin Ratio 1.8 Est Creatinine Clear Calc Drug Dose 97.0 ml/min Estimated GFR () 109.2 Estimated GFR (Non- 94.2 Vancomycin Level Trough 11.1 mcg/ml (SEE COMMENT) Last 24 Hours Test 07/10/16 07:07 White Blood Count 9.66 K/uL Red Blood Count 3.32 M/uL Hemoglobin 10.8 g/dL Hematocrit 32.5 % Mean Corpuscular Volume 97.9 fL Mean Corpuscular Hemoglobin 32.5 pg Mean Corpuscular Hemoglobin Concent 33.2 g/dl RDW Standard Deviation 47.1 fL RDW Coefficient of Variation 13.3 % Platelet Count 231 K/uL Mean Platelet Volume 9.7 fL Activated Partial Thromboplast Time 46.0 SECONDS Partial Thromboplastin Ratio 1.8 Creatinine 0.59 mg/dl Est Creatinine Clear Calc Drug Dose 97.0 ml/min Estimated GFR () 109.2 Estimated GFR (Non- 94.2 Vancomycin Level Trough 11.1 mcg/ml (Linda Cevallos PA-C) Assessment and Plan 70-year-old female presents the emergency department with significant swelling and pain in the right lower extremity status post arthroplasty of the right knee 3 days prior to admission bridged with Lovenox for hx AVR-restarted coumadin POD#1 Severe right knee pain-aspiration reviewed. Hemarthrosis. Significant amount of WBCs also noted. Preliminary cultures negative to date. -Orthopedics following -Continue vancomycin until final cultures are resulted -Percocet increased yesterday to 2 tabs every 4 hours as needed -PT/OT History of AVR x 2. Now has mechanical valve -Discussed case with orthopedics this morning. Okay to restart Coumadin 4 mg daily -DC heparin drip -Begin Lovenox 1 mg/kb q 12 h -Daily PT/INR Elevated troponin-likely secondary to leak. No ischemic changes noted on the EKG. Echo with no wall motion abnormalities. EF preserved at 60-65%. Remains asymptomatic. Do not suspect ACS. -Stable for transfer to orthopedic floor -Continue Coreg 6.25 mg BID HTN -Coreg as noted above -Continue spironolactone 25 mg daily Hypothyroidism -Continue Synthroid 88 g daily DVT prophylaxis -Lovenox -TEDS, SCDs CODE STATUS -LEVEL I FULL CODE DISPO -Patient needs encouragement to ambulate -May need acute rehabilitation pending PT/OT evaluations (Linda Cevallos, PA-C) PA Physician Supervision Note: I interviewed and examined the patient. Discussed with Norbert Cevallos PAC and agree with findings and plan as documented in the note. Any exceptions or clarifications are listed here: None this pt is still with significant knee pain but swelling has improved. Ortho is feeling this is hemarthrosis no surgical intervention is planned and they feel it will be ok to restart coumadin vitals reviewed 3/ car is regular with murmur lungs are clear left knee is inspected, wounds are clean and dry sutures in place Hemarthrosis after arthroscopy, previously on full anticoagulation transition to lovenox and coumadin (Lenard Valladares M.D.)
--- NOTE | 2016-07-10 12:27 | Pharmacy Progress Note ---
Pharmacy Antibiotic Prog Note Date of Service: Jul 10, 2016. Subjective: The patient is currently receiving Vanco 1200 mg IV every 12 hours. Objective: Height (Feet): 5 Height (Inches): 6.00 Weight (Kilograms): 79.400 Levels: Item Value Date Time Vancomycin Level Trough 11.1 mcg/ml 07/10/16 0707 Lab Results (24hrs): Item Value Date Time Creatinine 0.59 mg/dl L 07/10/16 0707 Est Creatinine Clear Calc Drug Dose 97.0 ml/min 07/10/16 0707 Laboratory Tests Test 07/10/16 07:07 Creatinine 0.59 mg/dl White Blood Count 9.66 K/uL Micro Results: Item Value Date Time Gram Stain - Final Resulted 07/08/16 1540 Joint Fluid/Space (Synovial) Knee Right Blood Culture - Preliminary Resulted 07/08/16 1430 Blood NO GROWTH TO DATE. Blood Culture - Preliminary Resulted 07/08/16 1410 Blood NO GROWTH TO DATE. Assessment & Plan: Pt's trough came back subtherapeutic at 11.1. This was prior to the third dose so true Css may be slightly higher; thus I have only slightly increased the dosing interval from q12 ->q10 rather than chose a more aggressive approach. Her renal fxn looks to be remaining steady. Pt's population p'kinetics: t1/2= 8.1hrs, ke=.[id number]. New dosing frequency set to start immediately: 1200mg (15.6mg/ kg) q10 at 1300 on 07/10/16. Trough has been ordered for 07/11/16 prior to the third dose @0900. Pt's BMI does not put her at a large risk for Vanco accumulation. Thank you for consulting the pharmacy kinetic team and including us in the care of Ms. Torres. Pharmacy will continue to follow and will adjust dose/frequency as necessary. Thank you
[2016-07-10] MEDS ORDERED: HYDROmorphone INJ 0.5 MG/0.5 ML SYR IV PRN (18:15)
[2016-07-10] MEDS: WARFARIN SOD 4 MG TAB PO SCH (19:17)
[2016-07-10] MEDS: HYDROmorphone INJ 1 MG/ML SYR IV PRN ×2 (19:18→23:32)
[2016-07-10] MEDS: ENOXAPARIN 80 MG/0.8 ML SYR SQ SCH (22:02)
[2016-07-10] MEDS: LEVOTHYROXINE 88 MCG TAB PO SCH (22:02)
[2016-07-11] VITALS (8 sets, daily range): BP systolic 146–162; BP diastolic 68–88; PULSE 60–77; TEMP 37.3–38.1; O2SAT 92–94
[2016-07-11] MEDS: ACETAMINOPHEN 325 MG TAB PO PRN (00:44)
--- NOTE | 2016-07-11 07:45 | Orthopedic Progress Note ---
Orthopedic Progress Note Date of Service Jul 11, 2016. Subjective Post OP Day: 5 Reports: complaints (Right knee feels tight into the right thigh.), pain controlled w PO medications Objective calves soft nontender, N/V intact, capillary refill less than 2 sec., dressing C /D/I, incision C/D/I, A&O x3 Right knee with mild effusion. No drainage today. No erythema, no streaking, no ecchymosis. Date Time Temp Pulse Resp B/P Pulse Ox O2 Delivery O2 Flow Rate FiO2 07/11/16 03:15 37.3 69 17 159/68 94 Room Air 07/11/16 00:20 38.1 156/75 07/10/16 23:40 37.6 07/10/16 23:25 Room Air 07/10/16 22:53 37.6 69 16 158/81 94 Room Air 07/10/16 17:50 191/80 07/10/16 17:30 Room Air 07/10/16 17:30 182/84 07/10/16 15:58 37.1 67 16 171/74 94 Room Air 07/10/16 12:00 95 Room Air 07/10/16 11:42 68 07/10/16 11:21 36.7 68 18 144/75 98 07/10/16 08:00 36.8 66 18 169/91 96 Room Air 07/10/16 08:00 96 Room Air Laboratory Results 24 Hours: Test 07/11/16 04:44 Assessment & Plan Assessment: Likely Hemarthrosis s/p R Knee arthroscopy Follow Cx's for now--no growth to date. Would have RLE on 2 pillows to help with Swelling. Plan: PT for ROM Patient has a follow up scheduled with [facility] on July 17. Will keep that follow up. OK to d/c from ortho standpoint. Discharge Planning Discharge Planning: uncertain (home vs. rehab)
[2016-07-11] MEDS: OXYCODONE/ACETAMINOPHEN 5-325 TAB PO PRN (08:19)
[2016-07-11] MEDS ORDERED: VANCOMYCIN TROUGH ONE (08:30)
[2016-07-11 08:57] LABS: PROTHROMBIN TIME (PATIENT) 10.9 SECONDS (9.0-12.0)
[2016-07-11] MEDS ORDERED: ASPIRIN 81 MG ECTAB PO SCH (09:00)
--- NOTE | 2016-07-11 09:14 | Cardiology Follow-Up ---
Subjective Subjective Date of Service: Jul 11, 2016. Pt evaluation today including: conversation w/ patient, physical exam, chart review, lab review, review of studies, review of inpatient medication list Additional Details: Knee pain mildly improved. No chest pain, or significant shortness of breath. Persistent frontal headache. Low grade fevers this AM. Problem List Medical Problems: (1) Elevated troponin Status: Acute (2) Fever Status: Acute (3) Hemarthrosis following procedure Status: Acute (4) Knee pain Status: Acute Review of Systems Constitutional: + fatigue, + fever Respiratory: No cough, No shortness of breath Cardiac: + edema, No chest pain Abdomen: No nausea, No pain Musculoskeletal: + joint pain Female : + dysuria Neurologic: + problem reported (headache) Heme: + abnormal bleeding/bruising Endo: + fatigue Skin: No rash Objective Vital Signs Last Vital Signs Documentation Date Time Temp Pulse Resp B/P Pulse Ox O2 Delivery O2 Flow Rate FiO2 07/11/16 07:35 Room Air 07/11/16 03:15 37.3 69 17 159/68 94 Physical Exam: ENT: + pertinent finding (oral mucosa fairly dry) Neck: no JVD Respiratory/Chest: lungs clear, + pertinent finding (very faint crackles noted at the bases right greater than left) Cardiovascular: regular rate, rhythm, + pertinent finding (Teller mechanical aortic valve closure, occasional premature beats) Abdomen: normal bowel sounds, non tender, soft Extremities: + pertinent finding (1+ edema distal to right lower extremithy. Minimal warmth, no redness at right knee) Neurologic/Psychiatric: no motor/sensory deficits, oriented x 3 Skin: warm/dry Assessment and Plan 1. Knee Hemarthrosis-- cultures negative, slowly improving 2. S/p mechanical AVR-- lovenox bridge to coumadin 3. Prior VTE 4. Hypertension 5. Elevated troponin-- unlikely to be true plaque rupture ACS 6. Persistent low grade fevers Stable from a cardiac standpoint BP up yesterday/this AM -- agree with resuming spironolactone, continuing carvedilol Agree with current anticoagulation plan -- Lovenox bridge to coumadin. Can d/c lovenox when INR ~2.0. Continue ASA. No further testing required for elevated troponin at this time. Medications: Current Inpatient Medications Medications (Trade) Dose Ordered Sig/Ramesh Route Start Time Stop Time Status Last Admin Dose Admin Acetaminophen (Tylenol Tab) 650 mg Q4H PRN PO 07/08/16 17:00 08/07/16 16:59 07/11/16 00:44 650 MG Al Hydrox/Mg Hydrox/Simethicone (Maalox Max Susp) 15 ml Q4H PRN PO 07/08/16 17:00 08/07/16 16:59 Magnesium Hydroxide (Milk Of Magnesia Susp) 30 ml Q12H PRN PO 07/08/16 17:00 08/07/16 16:59 Zolpidem Tartrate (Ambien Tab) 5 mg HSZ PRN PO 07/08/16 17:00 08/07/16 16:59 Ondansetron HCl (Zofran Inj) 4 mg Q6H PRN IV 07/08/16 17:00 08/07/16 16:59 Nitroglycerin (Nitrostat Tab) 0.4 mg UD PRN SL 07/08/16 17:00 08/07/16 16:59 Aspirin (Ecotrin Tab) 81 mg QAM PO 07/09/16 09:00 08/08/16 08:59 07/10/16 08:18 81 MG Vancomycin HCl (Consult) 1 ea UD PRN N/A 07/08/16 17:07 08/07/16 17:06 Pantoprazole Sodium (Protonix Tab) 40 mg QAM PO 07/09/16 09:00 08/08/16 08:59 07/10/16 08:19 40 MG Fexofenadine HCl (Mary Jo Tab) 180 mg QAM PO 07/09/16 09:00 08/08/16 08:59 07/10/16 08:17 180 MG Levothyroxine Sodium (Synthroid Tab) 88 mcg HS PO 07/08/16 21:00 08/07/16 20:59 07/10/16 22:02 88 MCG Magnesium Oxide (Mag-Ox Tab) 400 mg BID PO 07/08/16 21:00 08/07/16 20:59 07/10/16 22:03 400 MG Oxycodone/ Acetaminophen (Percocet 5-325mg Tab) 1-2 tabs q 4 hr prn Q4H PRN PO 07/09/16 13:15 07/23/16 13:14 07/11/16 08:19 1 TAB Carvedilol (Coreg Tab) 6.25 mg BID PO 07/09/16 21:00 08/08/16 20:59 07/10/16 22:00 6.25 MG Ascorbic Acid (Vitamin C Tab) 1,000 mg QAM PO 07/11/16 09:00 08/10/16 08:59 Spironolactone (Aldactone Tab) 25 mg QAM PO 07/11/16 09:00 08/10/16 08:59 Warfarin Sodium (Coumadin Tab) 4 mg DAILY@1600 PO 07/10/16 16:00 08/09/16 15:59 07/10/16 19:17 4 MG Enoxaparin Sodium 80 mg 80 mg Q12 SQ 07/10/16 22:00 08/09/16 21:59 07/10/16 22:02 80 MG Vancomycin HCl/ Sodium Chloride (Vancomycin Inj/ Nss 250ml) 274 ml @ 125 mls/hr Q10H IV 07/10/16 13:00 07/20/16 12:59 07/10/16 22:02 125 MLS/HR Hydromorphone HCl (Dilaudid Inj) 0.5 mg Q4 PRN IV 07/10/16 18:15 07/24/16 18:14 Hydromorphone HCl (Dilaudid Inj) 1 mg Q4 PRN IV 07/10/16 18:15 07/24/16 18:14 07/10/16 23:32 1 MG Polyethylene (Miralax Powder Packet) 17 gm DAILY PO 07/11/16 09:00 08/10/16 08:59 UNV Lab Results: Test 07/11/16 08:32 Prothrombin Time 10.9 SECONDS (9.0-12.0) Prothromb Time International Ratio 1.0 (0.9-1.1)
[2016-07-11 09:21] LABS: C-REACTIVE PROTEIN 12.7 mg/dl (0-0.29); CALCIUM 8.4 mg/dl (8.5-10.1); CREATININE 0.51 mg/dl (0.60-1.20); MAGNESIUM 2.1 mg/dl (1.8-2.4); POTASSIUM 3.4 mmol/L (3.5-5.1)
[2016-07-11] MEDS: VANCOMYCIN INJ 1,200 MG in SODIUM CHLORIDE 0.9% 250ML 250 ML IV SCH (09:22)
[2016-07-11] MEDS: PANTOprazole SOD 40 MG TAB PO SCH (09:23)
[2016-07-11] MEDS: ASPIRIN 81 MG ECTAB PO SCH (09:23)
[2016-07-11] MEDS: SPIRONOLACTONE 25 MG TAB PO SCH (09:23)
--- NOTE | 2016-07-11 09:23 | DIAGNOSTIC IMAGING REPORT ---
CHEST ONE VIEW PORTABLE CLINICAL HISTORY: fever COMPARISON STUDY: 07/08/2016 FINDINGS: There are postsurgical changes of midline sternotomy and valvular replacement. There is no focal pulmonary consolidation. There is no failure. There are no pleural effusions.[ The cardiac and mediastinal contours remain stable. IMPRESSION: No active disease in the chest. Electronically signed by: Abran Anne M.D. 07/11/2016 9:22 AM Dictated Date/Time: 07/11/2016 9:21 AM
[2016-07-11] MEDS: FEXOFENADINE HCL 180 MG TAB PO SCH (09:24)
[2016-07-11] MEDS: MAGNESIUM OXIDE 400 MG TAB PO SCH ×2 (09:24→20:20)
[2016-07-11] MEDS: ASCORBIC ACID 500 MG TAB PO SCH (09:24)
--- NOTE | 2016-07-11 09:43 | DIAGNOSTIC IMAGING REPORT ---
KUB CLINICAL HISTORY: ?ileus pain COMPARISON STUDY: No previous studies for comparison. FINDINGS: The soft tissues, psoas shadows, renal outlines and intestinal gas pattern appear normal. There is no evidence for bowel obstruction. No abnormal abdominal calcifications are seen. IMPRESSION: Normal study. Electronically signed by: Chao Drew M.D. 07/11/2016 9:42 AM Dictated Date/Time: 07/11/2016 9:41 AM
[2016-07-11] MEDS: CARVEDILOL 6.25 MG TAB PO SCH ×2 (09:56→20:19)
[2016-07-11] MEDS: POLYETHYLENE (MIRALAX) 17 GM PACK PO SCH (09:57)
[2016-07-11] MEDS: ENOXAPARIN 80 MG/0.8 ML SYR SQ SCH ×2 (09:57→20:21)
--- NOTE | 2016-07-11 11:06 | Hospitalist Progress Note ---
Hospitalist Progress Note Date of Service Jul 11, 2016. (Linda Cevallos PA-C) Subjective Pt evaluation today including: conversation w/ patient, physical exam, chart review, lab review, conversation w/ [facility] consultant, review of inpatient medication list C/o feeling hot and sweaty last night. Still having MEHTA's. Pain in the knee is about the same. + sinus pressure. No nasal drainage or cough. No SOB, CP. No BM for 3 days. Mild nausea noted. No abd pain Additional Comments: 6 system review negative. Please see pertinent positives in the history of present illness section. (Linda Cevallos PA-C) Objective Vital Signs Date Time Temp Pulse Resp B/P Pulse Ox O2 Delivery O2 Flow Rate FiO2 07/11/16 09:52 94 Room Air 07/11/16 07:45 37.4 60 12 150/80 94 Room Air 07/11/16 07:35 Room Air 07/11/16 03:15 37.3 69 17 159/68 94 Room Air 07/11/16 00:20 38.1 156/75 07/10/16 23:40 37.6 07/10/16 23:25 Room Air 07/10/16 22:53 37.6 69 16 158/81 94 Room Air 07/10/16 17:50 191/80 07/10/16 17:30 Room Air 07/10/16 17:30 182/84 07/10/16 15:58 37.1 67 16 171/74 94 Room Air 07/10/16 12:00 95 Room Air 07/10/16 11:42 68 07/10/16 11:21 36.7 68 18 144/75 98 (Linda Cevallos PA-C) Physical Exam General Appearance: + mild distress (in mild discomfort, slightly disheveled) Eyes: EOMI ENT: + pertinent finding (oral mucosa slightly dry. No exudate noted.) Neck: no adenopathy, + pertinent finding (no nuchal rigidity noted) Respiratory/Chest: lungs clear Cardiovascular: regular rate, rhythm, + pertinent finding (systolic click) Abdomen: normal bowel sounds, non tender, soft Extremities: + pertinent finding (slight decrease in right lower extremity edema. Still poor range of motion with the right knee. No edema or erythema in the left lower extremity) Neurologic/Psychiatric: no motor/sensory deficits, oriented x 3 Skin: warm/dry (Linda Cevallos PA-C) Laboratory Results 07/11/16 08:32 Test 07/11/16 08:32 Prothrombin Time 10.9 SECONDS (9.0-12.0) Prothromb Time International Ratio 1.0 (0.9-1.1) Anion Gap 11.0 mmol/L (3-11) Est Creatinine Clear Calc Drug Dose 112.2 ml/min Estimated GFR () 114.5 Estimated GFR (Non- 98.8 BUN/Creatinine Ratio 20.0 (10-20) Calcium Level 8.4 mg/dl (8.5-10.1) Magnesium Level 2.1 mg/dl (1.8-2.4) C-Reactive Protein 12.70 mg/dl (0-0.29) Vancomycin Level Trough 14.1 mcg/ml (SEE COMMENT) Last 24 Hours Test 07/11/16 08:32 Prothrombin Time 10.9 SECONDS Prothromb Time International Ratio 1.0 Sodium Level 140 mmol/L Potassium Level 3.4 mmol/L Chloride Level 103 mmol/L Carbon Dioxide Level 26 mmol/L Anion Gap 11.0 mmol/L Blood Urea Nitrogen 10 mg/dl Creatinine 0.51 mg/dl Est Creatinine Clear Calc Drug Dose 112.2 ml/min Estimated GFR () 114.5 Estimated GFR (Non- 98.8 BUN/Creatinine Ratio 20.0 Random Glucose 94 mg/dl Calcium Level 8.4 mg/dl Magnesium Level 2.1 mg/dl C-Reactive Protein 12.70 mg/dl Vancomycin Level Trough 14.1 mcg/ml (Linda Cevallos, BELINDA-C) Assessment and Plan 70-year-old female presents the emergency department with significant swelling and pain in the right lower extremity status post arthroplasty of the right knee 3 days prior to admission bridged with Lovenox for hx AVR-restarted coumadin POD#1 Severe right knee pain-aspiration reviewed. Hemarthrosis. ? septic joint. Spiking fevers. Prelim cx still neg to date -Continue vancomycin until final culture resulted -Continue cold compresses and elevation -PT/OT -Continue Percocet 2 tabs every 4 hours as needed -prn Dilaudid is also available Fever-etiology unknown. The patient is complaining of some sinus pressure and headaches. No other infectious symptoms -Repeat blood cultures 2-slight concern for endocarditis especially given her history of AVR -Hold off on TTE for now. Cardiology following. 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 This has been discontinued. -Continue Coumadin and bridging with Lovenox 1 mg/kb q 12 h -Daily PT/INR Elevated troponin-likely secondary to leak. No ischemic changes noted on the EKG. Echo with no wall motion abnormalities. EF preserved at 60-65%. Remains asymptomatic. Do not suspect ACS. -Continue Coreg 6.25 mg BID Constipation ? ileus -Check KUB -Make MiraLAX scheduled daily in addition to docusate 100 mg BID HTN -Coreg as noted above -Continue spironolactone 25 mg daily Hypothyroidism -Continue Synthroid 88 g daily DVT prophylaxis -Lovenox -TEDS, SCDs CODE STATUS -LEVEL I FULL CODE DISPO -Patient needs encouragement to ambulate -May need acute rehabilitation pending improvement in pain (Linda Cevallos, PA-C) PA Physician Supervision Note: I interviewed and examined the patient. Discussed with Norbert Cevallos PAC and agree with findings and plan as documented in the note. Any exceptions or clarifications are listed here: None pt still with knee pain but less swelling, but did have a low level fever overnight, maybe from hemarthrosis car is regular with murmur lungs are clear left knee is inspected, less swelling but still ecchymosis Hemarthrosis after arthroscopy, previously on full anticoagulation transition to lovenox and coumadin, will collect additional blood cultures, no need for future echo as recently had one a few days ago, will follow for additional infection source (Lenard Valladares M.D.)
--- NOTE | 2016-07-11 11:47 | Progress Note ---
Progress Note Date of Service Jul 11, 2016. Progress Note ID consult Dictated #[id number] A/P: 1. fever 2. Right knee hematoma -Unclear if infection of knee, but with mechanical avr, would give course of abx. All cultures negative to date, will follow repeat from today -will follow, today
[2016-07-11] MEDS ORDERED: POTASSIUM CHLORIDE 10 MEQ TABCR PO STA (11:50)
--- NOTE | 2016-07-11 12:52 | INFECT. DISEASE CONSULTATION ---
DATE OF CONSULTATION: 07/11/2016 DATE OF CONSULTATION: 07/11/2016. REQUESTING PHYSICIAN: Dr. Leyva. HISTORY OF PRESENT ILLNESS: This is a 70-year-old female who was admitted with right knee pain and fever. She did not have a knee arthroscopically on 07/06/2016. She has been on chronic Coumadin secondary to mechanical aortic valve. Her Coumadin was discontinued and she was bridged with Lovenox prior to her procedure on the . She was discharged home in stable condition but continued to have pain over the weekend. She did have fevers and represented to the Emergency Room on the . She did have bleeding from the wound at that time and she was subsequently admitted to the hospital. She did undergo knee aspiration this admission and had 9,895 white cells with 88% neutrophils; however, there were over 3 million red blood cells. She also had an x-ray which showed effusion. She has had intermittent fever since admission. On the her T-max was 38 degrees, on the she was afebrile. On the her T-max was 36.8 and overnight last night she did have a T-max of 38.1. She does feel warm and has sweats associated with these fevers. She currently is feeling well and does not have any fever or complaint of fever. She states overall her pain is improved. She has been started on vancomycin since admission to the hospital. She also had a 1 time dose of ceftriaxone in the ER. She did have a Doppler examination which was negative for DVT. Her sed rate is only 3. Her white blood cell count has been normal, most recently was 9.6. Blood cultures and cultures from the knee are negative and infectious diseases was asked to see this patient in consultation for fever and questionable septic arthritis. She is being followed by orthopedic surgery and has been cleared for discharge to [facility] for additional physical therapy. She is working with physical therapy prior to my examination. She states she is able to ambulate on the leg, but she does have some pain. She denies any chest pain, cough, shortness of breath, nausea, vomiting or diarrhea. She is tolerating antibiotics well. All remaining review of systems are reviewed and are negative. PAST MEDICAL HISTORY: Significant for basal cell carcinoma, hypothyroidism and hypertension. 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 She also had a hysterectomy. FAMILY HISTORY: Noncontributory. SOCIAL HISTORY: Significant for occasional alcohol use. She quit tobacco use in 1980. She has no history of drug use. ALLERGIES: SHE IS ALLERGIC TO SULFA ANTIBIOTICS. CURRENT MEDICATIONS: Include vitamin C, spironolactone and MiraLax, Lovenox, Dilaudid, Coumadin, vancomycin, Coreg, Percocet, Ecotrin, Protonix, Mary Jo, Synthroid, magnesium, Tylenol, Maalox, milk of magnesia, Ambien, Zofran. PHYSICAL EXAMINATION: VITAL SIGNS: She is afebrile currently with a temperature of 37.4. Her T-max at midnight was 38.1, pulse 60, respiratory rate is 12, blood pressure is 150/80, oxygen saturation is 94% on room air. GENERAL: She is awake, alert and oriented x3. She is in no acute distress. She is out of bed to chair on my examination. HEAD, EYES, EARS, NOSE, AND THROAT: Mucous membranes are moist. Extraocular muscles are intact. LUNGS: Clear. ABDOMEN: Soft. SKIN: Without rash. EXTREMITIES: There is no lower extremity edema bilaterally. Knee dressing is clean, dry and intact. There is no surrounding erythema or edema or warmth. There is minimal tenderness to palpation. LABORATORY STUDIES: CBC on the reveals a white blood cell count 9.6, hemoglobin 10.8, hematocrit 32.5 and platelets are 231. Sed rate on admission was 3. Chemistry panel reveals a sodium of 140, potassium 3.4, chloride 103, bicarbonate 26, BUN 10, creatinine 0.5, glucose is 94. LFTs are within normal limits. CRP was 5.8 on admission. Knee aspiration on the revealed red bloody fluid with 9,895 white cells with 88% neutrophils and 3,715,000 red blood cells. Blood cultures from the 5th are no growth to date x2. A knee aspiration is no growth. There were many WBCs, but no organisms seen. Repeat blood cultures were performed yesterday with fever and are pending. She did have a KUB done on the which was within normal limits. A chest x-ray done on the showed no active disease in the chest. X-ray on the showed joint space effusion postoperatively. A lower extremity ultrasound on the was negative for DVT. ASSESSMENT AND PLAN: Abnormal knee aspiration. I do not see any definitive evidence to suggest septic arthritis. Her blood and fluid cultures have been negative; however, she does have some postoperative fever. There is no evidence of atelectasis. I doubt a urine infection as she has had no symptoms of UTI. She has no evidence of DVT. I would suggest continuing this patient on antibiotics pending the results of repeat blood cultures, especially with a electronic organ mechanic aortic valve. This certainly could have been hematoma postoperatively, especially in a patient with chronic anticoagulation. This in and of itself can cause low grade fever; however, with her mechanical valve I would favor a course of empiric antibiotics. If her cultures remain negative, she will likely be transitioned to a 14-day course of oral antibiotics. We will follow along with you. Thank you for this consultation.
[2016-07-11 13:31] LABS: URINE APPEARANCE CLOUDY (CLEAR); URINE COLOR DK YELLOW; URINE EPITHELIAL CELL AUTO 20-30 /lpf (0-5); URINE NITRITE NEG (NEG); URINE SPECIFIC GRAVITY 1.018 (1.000-1.030); UROBILINOGEN NEG (NEG)
[2016-07-11 13:39] LABS: MANUAL MICROSCOPIC REQUIRED? NO; REVIEW REQ? NO; URINE BILIRUBIN NEG (NEG)
[2016-07-11 14:54] LABS: INFLUENZA A PCR Neg for Influ A (NEG); INFLUENZA B PCR Neg for Influ B (NEG)
[2016-07-11] MEDS: WARFARIN SOD 4 MG TAB PO SCH (15:46)
[2016-07-11] MEDS: OXYCODONE HCL IR 5 MG TAB (IMMEDIATE RELEASE) PO PRN (15:47)
--- NOTE | 2016-07-11 16:06 | Pharmacy Progress Note ---
Pharmacy Antibiotic Prog Note Date of Service: Jul 11, 2016. Subjective: The patient is currently receiving Vancomycin 1200 mg IV every 10 hours for treatment of possible septic right knee. The patient is currently on day # 4 of IV therapy. Objective: Height (Feet): 5 Height (Inches): 6.00 Weight (Kilograms): 79.400 Levels: Item Value Date Time Vancomycin Level Trough 14.1 mcg/ml 07/11/16 0832 Lab Results (24hrs): Laboratory Tests Test 07/11/16 08:32 BUN/Creatinine Ratio 20.0 Blood Urea Nitrogen 10 mg/dl Creatinine 0.51 mg/dl Micro Results: Item Value Date Time Blood Culture Received 07/11/16 1140 Blood Pending Blood Culture Received 07/11/16 1130 Blood Pending Blood Culture - Preliminary Resulted 07/08/16 1430 Blood NO GROWTH TO DATE. Blood Culture - Preliminary Resulted 07/08/16 1410 Blood NO GROWTH TO DATE. RUN DATE: 07/11/16 [facility] PAGE 1 RUN TIME: 1443 Specimen Inquiry PATIENT: KAUR PRICE LOC: CRISTOPHER U # : [id number] AGE/SX: 70/F ROOM: N381 REG : 07/08/[address]: Lenard Valladares M : 1945 BED: 1 DIS : STATUS: ADM IN TLOC: SPEC #: [id number] RENATE: 07/08/16 STATUS: RES REQ #: [id number] RECD: 07/08/[address]: All Bonilla M.D. SOURCE: JOINT FLSP ENTR: 07/08/[address] [facility] DR: Osvaldo Mckeon, SPDESC: KNEE RIGHT Pro,Anant Aguilar M.D. ORDERED: AER/PATTI CULTSMR COMMENTS: Has Specimen Been Obtained/Collected? Y Procedure Result Verified Site GRAM STAIN Final 07/09/16-853 RESULT MANY WBCs SEEN NO ORGANISMS SEEN OR AER/PATTI CULT Preliminary 07/11/16 Organism 1 GRAM POSITIVE COCCI QUANITY RARE SENS SENSITIVITIES DEPENDENT ON FURTHER IDENTIFICATION Assessment & Plan: 70 year old female on Vancomycin IV for possible septic right knee, s/p recent R knee arthroscopy on 07/06/16. Preliminary knee aspirate culture growing gram positive cocci. Plan Vancomycin IV * Trough level is near therapeutic at 14.1 mcg/mL (level drawn before steady state, however, I do not anticipate level to increase significantly) * Change to Vancomycin 1350 mg (17 mg/kg) IV every 10 hours. * Goal trough level estimate for septic joint: between 15 - 20 mcg/mL. * Trough level has been ordered for: 07/13/16 Pharmacy will continue to follow and will adjust dose/frequency as necessary. Thank you
[2016-07-11] MEDS: VANCOMYCIN INJ 1,350 MG in SODIUM CHLORIDE 0.9% 250ML 250 ML IV SCH (17:56)
[2016-07-11] MEDS: LEVOTHYROXINE 88 MCG TAB PO SCH (20:20)
[2016-07-11] MEDS: HYDROmorphone INJ 1 MG/ML SYR IV PRN (23:47)
[2016-07-12] MEDS: VANCOMYCIN INJ 1,350 MG in SODIUM CHLORIDE 0.9% 250ML 250 ML IV SCH (04:22)
[2016-07-12 04:26] VITALS: BP 164/73
[2016-07-12] MEDS: OXYCODONE HCL IR 5 MG TAB (IMMEDIATE RELEASE) PO PRN ×5 (04:30→21:36)
[2016-07-12 06:40] LABS: BASO % 0.2 %; BASO ABS # 0.02 K/uL (0-0.2); COMPLETE YES; EOS % 5.1 %; IG% 0.1 %; MEAN CELL VOLUME 96.7 fL (80-100); MEAN CORPUSCULAR HEMOGLOBIN 32.7 pg (25-34); MEAN CORPUSCULAR HGB CONC 33.8 g/dl (32-36); MEAN PLATELET VOLUME 8.9 fL (7.4-10.4); MONO % 15.3 %; NEUT % 63.3 %; PLATELET COUNT 302 K/uL (130-400); WHITE BLOOD COUNT 8.11 K/uL (4.8-10.8)
[2016-07-12 06:53] LABS: INR 1.1 (0.9-1.1); PROTHROMBIN TIME (PATIENT) 11.9 SECONDS (9.0-12.0)
[2016-07-12 07:09] LABS: BUN/CREATININE RATIO 15.9 (10-20); CALCIUM 8.1 mg/dl (8.5-10.1); CREATININE 0.58 mg/dl (0.60-1.20); POTASSIUM 3.7 mmol/L (3.5-5.1)
[2016-07-12 07:17] VITALS: BP 149/78; PULSE 77; TEMP 37.5; O2SAT 91
[2016-07-12] MEDS: ENOXAPARIN 80 MG/0.8 ML SYR SQ SCH ×2 (08:33→21:36)
[2016-07-12] MEDS: FEXOFENADINE HCL 180 MG TAB PO SCH (08:34)
[2016-07-12] MEDS: PANTOprazole SOD 40 MG TAB PO SCH (08:34)
[2016-07-12] MEDS: ASCORBIC ACID 500 MG TAB PO SCH (08:34)
[2016-07-12] MEDS: MAGNESIUM OXIDE 400 MG TAB PO SCH ×2 (08:34→21:35)
[2016-07-12] MEDS: POLYETHYLENE (MIRALAX) 17 GM PACK PO SCH (08:34)
[2016-07-12] MEDS: ASPIRIN 81 MG ECTAB PO SCH (08:34)
[2016-07-12] MEDS: SPIRONOLACTONE 25 MG TAB PO SCH (08:34)
--- NOTE | 2016-07-12 10:04 | Progress Note ---
Subjective Date of Service: Jul 12, 2016. Subjective Pt evaluation today including: conversation w/ patient, physical exam, chart review, lab review pt oob to chair, states she is feeling better, states swelling somewhat better. still with fevers overnight. tmax 38.1. remains on vanco, wbc 8.1. pain well controlled. feels warm this morning. 3/5 blood cultures are negative to date, aspirate cultures with gpc. followup blood cultures pending. all remaining ros reviewed and are negative. Problem List Medical Problems: (1) Elevated troponin Status: Acute (2) Fever Status: Acute (3) Hemarthrosis following procedure Status: Acute (4) Knee pain Status: Acute Objective Vital Signs Date Time Temp Pulse Resp B/P Pulse Ox O2 Delivery O2 Flow Rate FiO2 07/12/16 08:00 Room Air 07/12/16 07:17 37.5 77 16 149/78 91 Room Air 07/12/16 04:26 164/73 07/11/16 23:59 37.4 162/83 07/11/16 23:54 38.1 71 18 160/76 92 Room Air 07/11/16 23:30 Room Air 07/11/16 20:18 77 146/74 07/11/16 20:10 Room Air 07/11/16 16:00 Room Air 07/11/16 15:25 37.8 75 17 155/88 94 Room Air Physical Exam General Appearance: WD/WN, no apparent distress Eyes: EOMI Neck: supple Respiratory/Chest: normal breath sounds, no respiratory distress Cardiovascular: no edema Abdomen: soft Extremities: non-tender, normal inspection, no pedal edema Neurologic/Psychiatric: alert, oriented x 3 Skin: normal color Comments: knee c/d/i, + edema, min erythema at sutures. Laboratory Results Item Value Date Time Gram Stain - Final Resulted 07/08/16 1540 Joint Fluid/Space (Synovial) Knee Right Blood Culture - Preliminary Resulted 07/08/16 1430 Blood NO GROWTH TO DATE. Blood Culture - Preliminary Resulted 07/08/16 1410 Blood NO GROWTH TO DATE. Last 24 Hours Test 07/11/16 12:50 07/12/16 06:26 Urine Color DK YELLOW Urine Appearance CLOUDY Urine pH 6.0 Urine Specific [place] 1.018 Urine Protein NEG Urine Glucose (UA) NEG Urine Ketones TRACE Urine Occult Blood NEG Urine Nitrite NEG Urine Bilirubin NEG Urine Urobilinogen NEG Urine Leukocyte Esterase TRACE Urine WBC (Auto) 1-5 /hpf Urine RBC (Auto) 0-4 /hpf Urine Hyaline Casts (Auto) 5-10 /lpf Urine Epithelial Cells (Auto) 20-30 /lpf Urine Bacteria (Auto) NEG White Blood Count 8.11 K/uL Red Blood Count 3.00 M/uL Hemoglobin 9.8 g/dL Hematocrit 29.0 % Mean Corpuscular Volume 96.7 fL Mean Corpuscular Hemoglobin 32.7 pg Mean Corpuscular Hemoglobin Concent 33.8 g/dl Platelet Count 302 K/uL Mean Platelet Volume 8.9 fL Neutrophils (%) (Auto) 63.3 % Lymphocytes (%) (Auto) 16.0 % Monocytes (%) (Auto) 15.3 % Eosinophils (%) (Auto) 5.1 % Basophils (%) (Auto) 0.2 % Neutrophils # (Auto) 5.13 K/uL Lymphocytes # (Auto) 1.30 K/uL Monocytes # (Auto) 1.24 K/uL Eosinophils # (Auto) 0.41 K/uL Basophils # (Auto) 0.02 K/uL RDW Standard Deviation 47.3 fL RDW Coefficient of Variation 13.4 % Immature Granulocyte % (Auto) 0.1 % Immature Granulocyte # (Auto) 0.01 K/uL Prothrombin Time 11.9 SECONDS Prothromb Time International Ratio 1.1 Sodium Level 140 mmol/L Potassium Level 3.7 mmol/L Chloride Level 105 mmol/L Carbon Dioxide Level 27 mmol/L Anion Gap 8.0 mmol/L Blood Urea Nitrogen 9 mg/dl Creatinine 0.58 mg/dl Est Creatinine Clear Calc Drug Dose 98.7 ml/min Estimated GFR () 109.8 Estimated GFR (Non- 94.7 BUN/Creatinine Ratio 15.9 Random Glucose 95 mg/dl Calcium Level 8.1 mg/dl Assessment and Plan (1) septic right knee, elevated tn and hx machanical valve replcement Assessment & Plan: pt will continue on vanco pending final ID/sensitivities of gpc. blood cultures remain negative. if fever persists may require procedure, will follow. also c/ sinus pressure, ? cause for fever as well (2) Fever Problem Qualifiers (1) Fever: Fever type: unspecified Qualified Codes: R50.9 - Fever, unspecified
[2016-07-12] MEDS ORDERED: SODIUM CHLORIDE 0.65% NA SOLN 45 ML (OCEAN) PRN (12:00)
[2016-07-12] MEDS ORDERED: AMOXICILLIN/CLAVULANATE TAB 875 MG TAB PO ONE (12:00)
[2016-07-12] MEDS: CARVEDILOL 6.25 MG TAB PO SCH ×2 (12:18→17:23)
[2016-07-12 12:21] VITALS: BP 175/82; PULSE 77
--- NOTE | 2016-07-12 12:51 | Cardiology Follow-Up ---
Subjective Subjective Date of Service: Jul 12, 2016. Pt evaluation today including: conversation w/ patient, physical exam, chart review, lab review, review of studies, review of inpatient medication list Additional Details: Knee pain/swelling somewhat improved today. Able to walk to bathroom No chest pain, shortness of breath. Repeat fever overnight to 38.1. No shaking chills. Frontal headache mildly improved. Problem List Medical Problems: (1) Elevated troponin Status: Acute (2) Fever Status: Acute (3) Hemarthrosis following procedure Status: Acute (4) Knee pain Status: Acute Review of Systems Constitutional: + fatigue, + fever Respiratory: No cough, No shortness of breath Cardiac: + edema (right lower extremity -- improved from admission), No chest pain Abdomen: No nausea, No pain Musculoskeletal: + joint pain Neurologic: + problem reported (headache) Endo: + fatigue Skin: No rash Objective Vital Signs Last Vital Signs Documentation Date Time Temp Pulse Resp B/P Pulse Ox O2 Delivery O2 Flow Rate FiO2 07/12/16 12:21 77 175/82 07/12/16 08:00 Room Air 07/12/16 07:17 37.5 16 91 Physical Exam: General Appearance: WD/WN, no apparent distress Neck: supple Respiratory/Chest: normal breath sounds, no respiratory distress Cardiovascular: regular rate, rhythm, no edema, + pertinent finding ([place] mechanical aortic valve closure) Abdomen: non tender, soft Extremities: normal inspection, no calf tenderness, + swelling (right lower extremity edema distal to knee - improved from admission) Neurologic/Psychiatric: alert, oriented x 3 Skin: normal color, no rash (no stigmata of endocarditis) Assessment and Plan 1. Post-operative hemarthrosis-- sxs slowly improving; fluid culture with rare GPC 2. S/p mechanical AVR-- lovenox bridge to coumadin 3. Persistent low grade fevers - blood cx's negative 4. Hypertension 5. Elevated troponin-- unlikely to be true plaque rupture ACS 6. History of VTE With other potential sources of fever and negative blood cultures, negative TTE 3 days ago, no physical findings -- relatively low suspicion for prosthetic valve endocarditis at this time If fevers persist reasonable to obtain repeat limited TTE, ECG tomorrow (echo images reviewed - reasonable visualization of aortic root despite mechanical valve) If in the future suspicion for PVE becomes high, would consider ANGIE although patient has been unable to tolerate in the past and is reluctant to try again. Otherwise continue current anticoagulation bridging Blood pressure reasonably controlled on current regimen Will continue to follow. Medications: Current Inpatient Medications Medications (Trade) Dose Ordered Sig/Ramesh Route Start Time Stop Time Status Last Admin Dose Admin Acetaminophen (Tylenol Tab) 650 mg Q4H PRN PO 07/08/16 17:00 08/07/16 16:59 07/11/16 00:44 650 MG Al Hydrox/Mg Hydrox/Simethicone (Maalox Max Susp) 15 ml Q4H PRN PO 07/08/16 17:00 08/07/16 16:59 Magnesium Hydroxide (Milk Of Magnesia Susp) 30 ml Q12H PRN PO 07/08/16 17:00 08/07/16 16:59 Zolpidem Tartrate (Ambien Tab) 5 mg HSZ PRN PO 07/08/16 17:00 08/07/16 16:59 Ondansetron HCl (Zofran Inj) 4 mg Q6H PRN IV 07/08/16 17:00 08/07/16 16:59 Nitroglycerin (Nitrostat Tab) 0.4 mg UD PRN SL 07/08/16 17:00 08/07/16 16:59 Aspirin (Ecotrin Tab) 81 mg QAM PO 07/09/16 09:00 08/08/16 08:59 07/12/16 08:34 81 MG Pantoprazole Sodium (Protonix Tab) 40 mg QAM PO 07/09/16 09:00 08/08/16 08:59 07/12/16 08:34 40 MG Fexofenadine HCl (Mary Jo Tab) 180 mg QAM PO 07/09/16 09:00 08/08/16 08:59 07/12/16 08:34 180 MG Levothyroxine Sodium (Synthroid Tab) 88 mcg HS PO 07/08/16 21:00 08/07/16 20:59 07/11/16 20:20 88 MCG Magnesium Oxide (Mag-Ox Tab) 400 mg BID PO 07/08/16 21:00 08/07/16 20:59 07/12/16 08:34 400 MG Carvedilol (Coreg Tab) 6.25 mg BID PO 07/09/16 21:00 08/08/16 20:59 07/12/16 12:18 6.25 MG Ascorbic Acid (Vitamin C Tab) 1,000 mg QAM PO 07/11/16 09:00 08/10/16 08:59 07/12/16 08:34 1,000 MG Spironolactone (Aldactone Tab) 25 mg QAM PO 07/11/16 09:00 08/10/16 08:59 07/12/16 08:34 25 MG Enoxaparin Sodium (Lovenox Inj) 80 mg Q12 SQ 07/10/16 22:00 08/09/16 21:59 07/12/16 08:33 80 MG Hydromorphone HCl (Dilaudid Inj) 0.5 mg Q4 PRN IV 07/10/16 18:15 07/24/16 18:14 Hydromorphone HCl (Dilaudid Inj) 1 mg Q4 PRN IV 07/10/16 18:15 07/24/16 18:14 07/11/16 23:47 1 MG Polyethylene (Miralax Powder Packet) 17 gm DAILY PO 07/11/16 09:00 08/10/16 08:59 07/12/16 08:34 17 GM Oxycodone HCl (Roxicodone Immediate Rel Tab) 15 mg Q4H PRN PO 07/11/16 14:45 07/25/16 14:44 07/12/16 08:35 15 MG Warfarin Sodium (Coumadin Tab) 5 mg DAILY@1600 PO 07/12/16 16:00 08/11/16 15:59 Amoxicillin/ Clavulanate Potassium (Augmentin Tab) 875 mg BIDM PO 07/12/16 17:45 07/22/16 17:44 Sodium Chloride ([place] Nasal [place]) 2 sprays Q1H PRN NA 07/12/16 12:00 08/11/16 11:59 Lab Results: 07/12/16 06:26 Red Blood Count 3.00, Mean Corpuscular Volume 96.7, Mean Corpuscular Hemoglobin 32.7, Mean Corpuscular Hemoglobin Concent 33.8, Mean Platelet Volume 8.9, Neutrophils (%) (Auto) 63.3, Lymphocytes (%) (Auto) 16.0, Monocytes (%) (Auto) 15.3, Eosinophils (%) (Auto) 5.1, Basophils (%) (Auto) 0.2, Neutrophils # (Auto ) 5.13, Lymphocytes # (Auto) 1.30, Monocytes # (Auto) 1.24, Eosinophils # (Auto ) 0.41, Basophils # (Auto) 0.02 07/12/16 06:26 Test 07/11/16 12:50 07/12/16 06:26 Urine Color DK YELLOW Urine Appearance CLOUDY (CLEAR) Urine pH 6.0 (4.5-7.5) Urine Specific [place] 1.018 (1.000-1.030) Urine Protein NEG (NEG) Urine Glucose (UA) NEG (NEG) Urine Ketones TRACE (NEG) Urine Occult Blood NEG (NEG) Urine Nitrite NEG (NEG) Urine Bilirubin NEG (NEG) Urine Urobilinogen NEG (NEG) Urine Leukocyte Esterase TRACE (NEG) Urine WBC (Auto) 1-5 /hpf (0-5) Urine RBC (Auto) 0-4 /hpf (0-4) Urine Hyaline Casts (Auto) 5-10 /lpf (0-5) Urine Epithelial Cells (Auto) 20-30 /lpf (0-5) Urine Bacteria (Auto) NEG (NEG) White Blood Count 8.11 K/uL (4.8-10.8) Red Blood Count 3.00 M/uL (4.2-5.4) Hemoglobin 9.8 g/dL (12.0-16.0) Hematocrit 29.0 % (37-47) Mean Corpuscular Volume 96.7 fL (80-100) Mean Corpuscular Hemoglobin 32.7 pg (25-34) Mean Corpuscular Hemoglobin Concent 33.8 g/dl (32-36) Platelet Count 302 K/uL (130-400) Mean Platelet Volume 8.9 fL (7.4-10.4) Neutrophils (%) (Auto) 63.3 % Lymphocytes (%) (Auto) 16.0 % Monocytes (%) (Auto) 15.3 % Eosinophils (%) (Auto) 5.1 % Basophils (%) (Auto) 0.2 % Neutrophils # (Auto) 5.13 K/uL (1.4-6.5) Lymphocytes # (Auto) 1.30 K/uL (1.2-3.4) Monocytes # (Auto) 1.24 K/uL (0.11-0.59) Eosinophils # (Auto) 0.41 K/uL (0-0.5) Basophils # (Auto) 0.02 K/uL (0-0.2) RDW Standard Deviation 47.3 fL (36.4-46.3) RDW Coefficient of Variation 13.4 % (11.5-14.5) Immature Granulocyte % (Auto) 0.1 % Immature Granulocyte # (Auto) 0.01 K/uL (0.00-0.02) Prothrombin Time 11.9 SECONDS (9.0-12.0) Prothromb Time International Ratio 1.1 (0.9-1.1) Anion Gap 8.0 mmol/L (3-11) Est Creatinine Clear Calc Drug Dose 98.7 ml/min Estimated GFR () 109.8 Estimated GFR (Non- 94.7 BUN/Creatinine Ratio 15.9 (10-20) Calcium Level 8.1 mg/dl (8.5-10.1)
[2016-07-12 15:44] VITALS: BP 143/82; PULSE 68; TEMP 37.3; O2SAT 94
[2016-07-12] MEDS: WARFARIN SOD 5 MG TAB PO SCH (16:31)
[2016-07-12] MEDS: AMOXICILLIN/CLAVULANATE TAB 875 MG TAB PO SCH (17:23)
--- NOTE | 2016-07-12 17:26 | Progress Note ---
Subjective Date of Service: Jul 12, 2016. Subjective this pt is with sinus pressure, low grade fever, knee pain is improving. Problem List Medical Problems: (1) Elevated troponin Status: Acute (2) Fever Status: Acute (3) Hemarthrosis following procedure Status: Acute (4) Knee pain Status: Acute Review of Systems Constitutional: + chills, + fatigue, + fever, + weakness Eyes: No eye pain, No worsening of vision ENT: No hearing loss, No sore throat Respiratory: No cough, No shortness of breath Cardiac: No chest pain, No edema Abdomen: No diarrhea, No nausea, No pain, No vomiting Musculoskeletal: No joint pain, No muscle pain Female : No dysuria, No urinary frequency Objective Vital Signs Date Time Temp Pulse Resp B/P Pulse Ox O2 Delivery O2 Flow Rate FiO2 07/12/16 15:44 37.3 68 17 143/82 94 Room Air 07/12/16 12:21 77 175/82 07/12/16 08:00 Room Air 07/12/16 07:17 37.5 77 16 149/78 91 Room Air 07/12/16 04:26 164/73 07/11/16 23:59 37.4 162/83 07/11/16 23:54 38.1 71 18 160/76 92 Room Air 07/11/16 23:30 Room Air 07/11/16 20:18 77 146/74 07/11/16 20:10 Room Air Physical Exam General Appearance: WD/WN, + mild distress Neck: supple, no JVD Respiratory/Chest: chest non-tender, lungs clear, normal breath sounds Cardiovascular: regular rate, rhythm, no murmur Abdomen: normal bowel sounds, non tender, soft Extremities: no pedal edema, no calf tenderness Neurologic/Psychiatric: alert, oriented x 3 Laboratory Results Last 24 Hours Test 07/12/16 06:26 White Blood Count 8.11 K/uL Red Blood Count 3.00 M/uL Hemoglobin 9.8 g/dL Hematocrit 29.0 % Mean Corpuscular Volume 96.7 fL Mean Corpuscular Hemoglobin 32.7 pg Mean Corpuscular Hemoglobin Concent 33.8 g/dl Platelet Count 302 K/uL Mean Platelet Volume 8.9 fL Neutrophils (%) (Auto) 63.3 % Lymphocytes (%) (Auto) 16.0 % Monocytes (%) (Auto) 15.3 % Eosinophils (%) (Auto) 5.1 % Basophils (%) (Auto) 0.2 % Neutrophils # (Auto) 5.13 K/uL Lymphocytes # (Auto) 1.30 K/uL Monocytes # (Auto) 1.24 K/uL Eosinophils # (Auto) 0.41 K/uL Basophils # (Auto) 0.02 K/uL RDW Standard Deviation 47.3 fL RDW Coefficient of Variation 13.4 % Immature Granulocyte % (Auto) 0.1 % Immature Granulocyte # (Auto) 0.01 K/uL Prothrombin Time 11.9 SECONDS Prothromb Time International Ratio 1.1 Sodium Level 140 mmol/L Potassium Level 3.7 mmol/L Chloride Level 105 mmol/L Carbon Dioxide Level 27 mmol/L Anion Gap 8.0 mmol/L Blood Urea Nitrogen 9 mg/dl Creatinine 0.58 mg/dl Est Creatinine Clear Calc Drug Dose 98.7 ml/min Estimated GFR () 109.8 Estimated GFR (Non- 94.7 BUN/Creatinine Ratio 15.9 Random Glucose 95 mg/dl Calcium Level 8.1 mg/dl Assessment and Plan 70F with a hemarthrosis status post arthroplasty of the right knee previously bridged with Lovenox for hx AVR and -restarted coumadin POD#1 Hemarthrosis. culture resulted shows gram + sensitivity to follow -escalate pain control with oxycodone -PT/OT Fever-etiology cosider from hemarthrosis and also c/o sinus pain ( while on vanco) will start augmentin, cardiology is following and not concerned with acute endocarditis History of AVR Coumadin and bridging with Lovenox 1 mg/kb q 12 h Elevated troponin-not acs. No ischemic changes noted on the EKG. Echo with no wall motion abnormalities. EF preserved at 60-65%. -Continue Coreg 6.25 mg BID HTN-Coreg spironolactone 25 mg daily Hypothyroidism Synthroid 88 g daily DVT prophylaxis -Lovenox/coumadin -TEDS, SCDs CODE STATUS -LEVEL I FULL CODE DISPO
[2016-07-12] MEDS: LEVOTHYROXINE 88 MCG TAB PO SCH (21:35)
[2016-07-12] MEDS ORDERED: VANCOMYCIN TROUGH SCH (23:30)
[2016-07-12 23:35] VITALS: BP 122/65; PULSE 71; TEMP 37.2; O2SAT 93
[2016-07-13] VITALS (7 sets, daily range): BP systolic 103–146; BP diastolic 67–79; PULSE 66–78; TEMP 37.6–37.8; O2SAT 90–92
[2016-07-13 06:58] LABS: BASO % 0.3 %; BASO ABS # 0.02 K/uL (0-0.2); COMPLETE YES; EOS % 6.1 %; HEMATOCRIT 31.6 % (37-47); IG% 0.3 %; LYMPH % 18.7 %; LYMPH ABS # 1.41 K/uL (1.2-3.4); MEAN CELL VOLUME 98.4 fL (80-100); MEAN CORPUSCULAR HEMOGLOBIN 32.7 pg (25-34); MEAN CORPUSCULAR HGB CONC 33.2 g/dl (32-36); MONO % 16.1 %; NEUT % 58.5 %; PLATELET COUNT 360 K/uL (130-400); RED BLOOD COUNT 3.21 M/uL (4.2-5.4); WHITE BLOOD COUNT 7.56 K/uL (4.8-10.8)
[2016-07-13] MEDS: ENOXAPARIN 80 MG/0.8 ML SYR SQ SCH ×3 (07:30→20:52)
[2016-07-13 08:11] LABS: INR 1.4 (0.9-1.1); PROTHROMBIN TIME (PATIENT) 14.9 SECONDS (9.0-12.0)
[2016-07-13 08:16] LABS: BUN/CREATININE RATIO 14.3 (10-20); CALCIUM 8.5 mg/dl (8.5-10.1); CREATININE 0.65 mg/dl (0.60-1.20); POTASSIUM 3.7 mmol/L (3.5-5.1)
[2016-07-13] MEDS: OXYCODONE HCL IR 5 MG TAB (IMMEDIATE RELEASE) PO PRN ×3 (09:00→19:29)
[2016-07-13] MEDS: AMOXICILLIN/CLAVULANATE TAB 875 MG TAB PO SCH ×2 (09:01→18:10)
[2016-07-13] MEDS: MAGNESIUM OXIDE 400 MG TAB PO SCH ×2 (09:02→20:52)
[2016-07-13] MEDS: SPIRONOLACTONE 25 MG TAB PO SCH (09:02)
[2016-07-13] MEDS: POLYETHYLENE (MIRALAX) 17 GM PACK PO SCH (09:02)
[2016-07-13] MEDS: ASPIRIN 81 MG ECTAB PO SCH (09:03)
[2016-07-13] MEDS: CARVEDILOL 6.25 MG TAB PO SCH ×2 (09:04→20:52)
[2016-07-13] MEDS: FEXOFENADINE HCL 180 MG TAB PO SCH (09:04)
[2016-07-13] MEDS: PANTOprazole SOD 40 MG TAB PO SCH (09:05)
[2016-07-13] MEDS: ASCORBIC ACID 500 MG TAB PO SCH (09:05)
--- NOTE | 2016-07-13 10:07 | Progress Note ---
Subjective Date of Service: Jul 13, 2016. Subjective pt changed to po augmentin yesterday secondary to complaints of sinus congestion , she has gamma strep growing from knee culture, second gpc as well. low grade isolated temp this am, afebrile overnight. for d/c to [facility]. all blood cultures from 07/08 and 07/11 are negative. wbc nml today. tolerating abx. no complaints. states pain is improved, denies f/c. no pain in knee currently. sinus pressure improved. all remaining ros reviewed and are negative Problem List Medical Problems: (1) Elevated troponin Status: Acute (2) Fever Status: Acute (3) Hemarthrosis following procedure Status: Acute (4) Knee pain Status: Acute Objective Vital Signs Date Time Temp Pulse Resp B/P Pulse Ox O2 Delivery O2 Flow Rate FiO2 07/13/16 09:29 73 141/78 Room Air 07/13/16 07:23 37.8 78 16 146/77 92 Room Air 07/12/16 23:55 Room Air 07/12/16 23:35 37.2 71 20 122/65 93 Room Air 07/12/16 15:44 37.3 68 17 143/82 94 Room Air 07/12/16 15:30 Room Air 07/12/16 12:21 77 175/82 Physical Exam General Appearance: WD/WN, no apparent distress Eyes: EOMI Neck: supple Respiratory/Chest: lungs clear, normal breath sounds, no respiratory distress Cardiovascular: no edema Extremities: non-tender, normal inspection, no pedal edema Neurologic/Psychiatric: alert, oriented x 3 Skin: normal color Laboratory Results Item Value Date Time Blood Culture - Preliminary Resulted 07/08/16 1410 Blood NO GROWTH TO DATE. Blood Culture - Preliminary Resulted 07/08/16 1430 Blood NO GROWTH TO DATE. Blood Culture - Preliminary Resulted 07/11/16 1130 Blood NO GROWTH TO DATE. Blood Culture - Preliminary Resulted 07/11/16 1140 Blood NO GROWTH TO DATE. Gram Stain - Final Resulted 07/08/16 1540 Joint Fluid/Space (Synovial) Knee Right Gram Stain - Final Resulted 07/08/16 1540 Joint Fluid/Space (Synovial) Knee Right Last 24 Hours Test 07/12/16 23:25 07/13/16 06:42 07/13/16 07:50 Vancomycin Level Trough 12.3 mcg/ml White Blood Count 7.56 K/uL Red Blood Count 3.21 M/uL Hemoglobin 10.5 g/dL Hematocrit 31.6 % Mean Corpuscular Volume 98.4 fL Mean Corpuscular Hemoglobin 32.7 pg Mean Corpuscular Hemoglobin Concent 33.2 g/dl Platelet Count 360 K/uL Mean Platelet Volume 9.0 fL Neutrophils (%) (Auto) 58.5 % Lymphocytes (%) (Auto) 18.7 % Monocytes (%) (Auto) 16.1 % Eosinophils (%) (Auto) 6.1 % Basophils (%) (Auto) 0.3 % Neutrophils # (Auto) 4.43 K/uL Lymphocytes # (Auto) 1.41 K/uL Monocytes # (Auto) 1.22 K/uL Eosinophils # (Auto) 0.46 K/uL Basophils # (Auto) 0.02 K/uL RDW Standard Deviation 47.8 fL RDW Coefficient of Variation 13.3 % Immature Granulocyte % (Auto) 0.3 % Immature Granulocyte # (Auto) 0.02 K/uL Prothrombin Time SECONDS 14.9 SECONDS Prothromb Time International Ratio 1.4 Sodium Level 135 mmol/L Potassium Level 3.7 mmol/L Chloride Level 100 mmol/L Carbon Dioxide Level 25 mmol/L Anion Gap 10.0 mmol/L Blood Urea Nitrogen 9 mg/dl Creatinine 0.65 mg/dl Est Creatinine Clear Calc Drug Dose 88.0 ml/min Estimated GFR () 105.7 Estimated GFR (Non- 91.2 BUN/Creatinine Ratio 14.3 Random Glucose 106 mg/dl Calcium Level 8.5 mg/dl Assessment and Plan (1) septic right knee, elevated tn and hx machanical valve replcement Assessment & Plan: on augmentin, follow final culture. would suggest 21 days of abx for infected hematoma, fever could be multifactorial, hematoma, sinusitis , knee infection. would treat + culture. all blood cultures negative, IE less likely. will follow in office post d/c (2) Fever Problem Qualifiers (1) Fever: Fever type: unspecified Qualified Codes: R50.9 - Fever, unspecified
[2016-07-13] MEDS ORDERED: CRG625 PO (11:03)
[2016-07-13] MEDS ORDERED: TYL325X PO (11:03)
[2016-07-13] MEDS ORDERED: CLC100 PO (11:03)
[2016-07-13] MEDS ORDERED: AMOX1TAB43 PO (11:03)
[2016-07-13] MEDS ORDERED: MGNO400 PO (11:03)
[2016-07-13] MEDS ORDERED: RXC5 PO (11:03)
[2016-07-13] MEDS ORDERED: SALI0.6510 (11:03)
[2016-07-13] MEDS ORDERED: MRLP17 PO (11:03)
--- NOTE | 2016-07-13 11:12 | Discharge Instructions ---
Discharge Instructions Date of Service Jul 13, 2016. Admission Reason for Admission: Septic Right Knee, Elevated Tn And Hx Discharge Discharge Diagnosis / Problem: hemarthrosis, septic joint R knee Discharge Goals Goal(s): Improve function, Diagnostic testing, Therapeutic intervention Activity Recommendations Activity Limitations: per Instructions/Follow-up section Weight bearing as tolerated on right knee Instructions / Follow-Up Instructions / Follow-Up You have been treated in the hospital for right knee pain. It was found that you had a significant amount of blood in the knee in addition to an infection, which is being treated with antibiotics The following changes/additions have been made to your medication list: -Augmentin 1 tab twice daily. Please continue to take this medication until you follow up with infectious disease in 2 weeks -Colace 100 mg twice daily to prevent constipation -Oxycodone 15 mg 1 tab every 4 hours as needed for pain -MiraLAX 1 dose daily as needed for severe constipation -Continue Lovenox injections 80 mg subQ twice daily until INR is therapeutic ( 2.5-3.5) YOU SHOULD HAVE YOUR PT/INR CHECKED DAILY UNTIL IT IS THERAPEUTIC at 2.5-3.5 Please follow-up with infectious disease (Dr. Calvillo) in 2 weeks Please also follow up with your primary care physician within 1 week Please follow-up with orthopedics (Dr. Bonilla) in 1 week. This stitches should be removed on 07/20/2016 Please follow up with Cardiology (Dr. Whitten) within 1 month Call your doctor or return to the emergency department if you have any of the following symptoms: -Fever of 101F or greater -Persistent vomiting - Persistent diarrhea -Lethargy -Chest pain -Shortness of breath -severe dizziness -weakness on one side of your body -severe Right knee pain DISCHARGE SUMMARY 70-year-old female presents the emergency department with significant swelling and pain in the right lower extremity status post arthroplasty of the right knee 3 days prior to admission bridged with Lovenox for hx AVR-restarted coumadin POD#1 Severe right knee pain-aspiration reviewed. Hemarthrosis, septic joint. Aspiration growing gamma strep -ID following -was on Vancomycin. d/c'ed 07/12 as pt was still spiking fevers--> transitioned to Augmentin 1 by mouth twice a day for at least 2 weeks. Infectious disease will follow up in 2 weeks as an outpatient. -Continue cold compresses and elevation -oxy 15 mg po q 4 hr prn pain -continue PT/OT -Suture removal on 07/20 Fever-probably from septic joint. Concerning that she was still spiking fevers on vanc. -sinus pressure, MEHTA-->? sinusitis. Started on augmentin 07/12. -Blood cx x 4 neg to date -Flu PCR neg -if fevers persist, consider ANGIE -CXR neg -UA neg History of AVR x 2. Now has mechanical valve . INR 1.4 today -Initially placed on a heparin drip. Then started on full dose Lovenox -Coumadin restarted. She will need daily INRs and continued full dose Lovenox for bridging until INR is between 2.5-3.5 Elevated troponin-likely secondary to leak. No ischemic changes noted on the EKG. Echo with no wall motion abnormalities. EF preserved at 60-65%. Remains asymptomatic. Do not suspect ACS. -Continue Coreg 6.25 mg BID Constipation -Make MiraLAX scheduled daily in addition to docusate 100 mg BID HTN -Coreg as noted above -Continue spironolactone 25 mg daily Hypothyroidism -Continue Synthroid 88 g daily DVT prophylaxis -Lovenox -TEDS, SCDs CODE STATUS -LEVEL I FULL CODE DISPO -[facility] Current Hospital Diet Patient's current hospital diet: AHA Diet (Heart Healthy) Discharge Diet Recommended Diet: AHA Diet (Heart Healthy) Procedures Procedures Performed: knee aspiration-many RBCs and WBCs Pending Studies Studies pending at discharge: no Laboratory Results INR 1.4 07/13/16 06:42 Red Blood Count 3.21, Mean Corpuscular Volume 98.4, Mean Corpuscular Hemoglobin 32.7, Mean Corpuscular Hemoglobin Concent 33.2, Mean Platelet Volume 9.0, Neutrophils (%) (Auto) 58.5, Lymphocytes (%) (Auto) 18.7, Monocytes (%) (Auto) 16.1, Eosinophils (%) (Auto) 6.1, Basophils (%) (Auto) 0.3, Neutrophils # (Auto ) 4.43, Lymphocytes # (Auto) 1.41, Monocytes # (Auto) 1.22, Eosinophils # (Auto ) 0.46, Basophils # (Auto) 0.02 07/13/16 07:50 Test 07/12/16 23:25 07/13/16 06:42 07/13/16 07:50 Vancomycin Level Trough 12.3 mcg/ml (SEE COMMENT) White Blood Count 7.56 K/uL (4.8-10.8) Red Blood Count 3.21 M/uL (4.2-5.4) Hemoglobin 10.5 g/dL (12.0-16.0) Hematocrit 31.6 % (37-47) Mean Corpuscular Volume 98.4 fL (80-100) Mean Corpuscular Hemoglobin 32.7 pg (25-34) Mean Corpuscular Hemoglobin Concent 33.2 g/dl (32-36) Platelet Count 360 K/uL (130-400) Mean Platelet Volume 9.0 fL (7.4-10.4) Neutrophils (%) (Auto) 58.5 % Lymphocytes (%) (Auto) 18.7 % Monocytes (%) (Auto) 16.1 % Eosinophils (%) (Auto) 6.1 % Basophils (%) (Auto) 0.3 % Neutrophils # (Auto) 4.43 K/uL (1.4-6.5) Lymphocytes # (Auto) 1.41 K/uL (1.2-3.4) Monocytes # (Auto) 1.22 K/uL (0.11-0.59) Eosinophils # (Auto) 0.46 K/uL (0-0.5) Basophils # (Auto) 0.02 K/uL (0-0.2) RDW Standard Deviation 47.8 fL (36.4-46.3) RDW Coefficient of Variation 13.3 % (11.5-14.5) Immature Granulocyte % (Auto) 0.3 % Immature Granulocyte # (Auto) 0.02 K/uL (0.00-0.02) Prothrombin Time 14.9 SECONDS (9.0-12.0) Prothromb Time International Ratio 1.4 (0.9-1.1) Anion Gap 10.0 mmol/L (3-11) Est Creatinine Clear Calc Drug Dose 88.0 ml/min Estimated GFR () 105.7 Estimated GFR (Non- 91.2 BUN/Creatinine Ratio 14.3 (10-20) Calcium Level 8.5 mg/dl (8.5-10.1) Lipid Panel Test 07/09/16 03:30 Range/Units Triglycerides Level 108 0-150 mg/dl Cholesterol Level 146 0-200 mg/dl HDL Cholesterol 53 mg/dl Cholesterol/HDL Ratio 2.8 LDL Cholesterol, Calculated 71 mg/dl Medical Emergencies . Who to Call and When: Medical Emergencies: If at any time you feel your situation is an emergency, please call 911 immediately. . Non-Emergent Contact Non-Emergency issues call your: Primary Care Provider . . "Provider Documentation" section prepared by Linda Cevallos. VTE Core Measure Inpt VTE Proph given/why not?: Enoxaparin (Lovenox)GEOVANI, T.E.Marilynn. José Miguel, SCD's
[2016-07-13] MEDS ORDERED: LVNIS80 SQ (11:23)
--- NOTE | 2016-07-13 11:41 | Discharge Summary ---
Discharge Summary Date of Service Jul 13, 2016. Discharge Summary Admission Date: Jul 08, 2016 at 17:00 Discharge Date: Jul 13, 2016 Discharge Disposition: Rehab Principal Diagnosis: septic R knee, hemarthrosis Problems/Secondary Diagnoses: AVR Sinusitis HTN Immunizations: Have You Had Influenza Vaccine: Yes Influenza Vaccine Date: Feb 05, 2010 History of Tetanus Vaccine?: Unknown History of Pneumococcal: No History of Hepatitis B Vaccine: Unknown Procedures: knee aspiration Consultations: ID orthopedics cardiology Medication Reconciliation New Medications: Acetaminophen (Tylenol) 325 Mg Tab 650 MG PO Q4H PRN for Pain or Fever for 30 Days, #240 TAB Amoxicillin & Pot Clavulanate (Amoxicillin/Clavulanate P) 1 Tab Tab 875 MG PO BIDM for 30 Days, #60 TAB Carvedilol (Carvedilol) 6.25 Mg Tab 6.25 MG PO BID for 30 Days, #60 TAB Docusate Sodium (Docusate Sodium) 100 Mg Cap 100 MG PO BID for 30 Days, #60 CAP Enoxaparin (Lovenox) 80 Mg/0.8 Ml Inj 80 MG SQ Q12 for 7 Days, #14 DOSE Magnesium Oxide (Magnesium-Oxide) 400 Mg Tab 400 MG PO BID for 30 Days, #60 TAB Oxycodone HCl (Oxycodone HCl) 5 Mg Tab 15 MG PO Q4H PRN for Pain for 3 Days, #36 TAB Polyethylene (Miralax) 17 Gm Pow 17 GM PO DAILY for 30 Days, #30 DOSE hold for diarrhea Saline ([place] Nasal [place]) 0.65 % Spr 2 SPRAYS NA Q1H PRN for DRY NOSE for 30 Days, #1 BTL Continued Medications: Amoxicillin (Amoxil) 500 Mg Cap 2000 MG PO UD, #21 CAP TAKE 4 CAPSULES 1 HOUR PRIOR TO DENTAL APPOINTMENTS. Ascorbic Acid (Vitamin C) 500 Mg Tab 1000 MG PO QAM Aspirin Enteric Coated (Ecotrin Or Generic *) 81 Mg Ectab 81 MG PO QAM Calcitriol (Topical) (Vectical) 3 Mcg/Gm Oin 1 DOSE TOP PRN Calcium (Caltrate) 600 Mg Tab 1200 MG PO QAM, TAB Cholecalciferol (Vitamin D3) 2,000 Unit Cap 1 CAP PO DAILY for 30 Days, #30 CAP 3 Refills Clobetasol Propionate (Clobetasol Propionate Cream 0.05%) 90 Appln/30 Gm Cr 1 APPLN EXT BID PRN for PSORIASIS, TUBE Emollient (Cetaphil) 1 Cre Cre 1 APPLN TD PRN Fexofenadine Hcl (Mary Jo *) 180 Mg Tab 180 MG PO QAM Hydrocortisone Butyrate Hydrop (Locoid Cream 0.1%) 0.1 % Cre 1 APPLN EXT PRN PRN for PSORIASIS, TUBE Lactobacillus-Inulin (Culturelle) 1 Cap Cap 1 TAB PO QAM Levothyroxine Sodium (Synthroid) 88 Mcg Tab 88 MCG PO HS, TAB Multivitamin (Multivitamin) Tab 1 TAB PO QAM, TAB Ocuvite Preservision (Ocuvite Preservision) 1 Tab Tab 1 TAB PO BID, TAB Polyethylene Glycol-Propylene (Systane Liquid Gel) 1 Zafar Zafar 2 DROPS OPB HS Psyllium W/ Calcium (Metamucil Plus Calcium) 1 Cap Cap 2 TAB PO NOON Saline (Saline Nasal [place]) 0.65 % Spr 1-2 SPRAYS ERIN PRN Spironolactone (Aldactone) 25 Mg Tab 25 MG PO QAM Warfarin Sod (Coumadin) 1 Mg Tab 3-4 MG PO QPM [Optiva Advanced] () 1 DROP OPB PRN Discontinued Medications: Apremilast (Otezla 10 & 20 & 30 mg) 1 Tab Tab 30 MG PO BID Carvedilol (Coreg) 3.125 Mg Tab 3.125 MG PO BIDM, TAB Enoxaparin (Lovenox) 80 Mg/0.8 Ml Inj 80 MG SQ Q12H, SYR Oxycodone/Acetaminophen 5MG/325MG (Percocet 5MG/325MG) Tab 1-2 TABLETS PO Q4H PRN for Pain, #60 TAB Referrals At Discharge Follow up Referrals: Medical Customer Service Representative Referral - Within a Month with Ward Whitten M.D. Infectious Disease - Within 1-2 Weeks with Jennifer. Calvillo D.O. Orthopedics Referral - Within 1-2 Weeks with All Bonilla M.D. Discharge Exam Patient reports that the knee pain is slightly better today. Did feel a little warm overnight. Denies any body aches. Headaches have improved. Sinus pressure has also improved. Had a bowel movement yesterday. Denies any nausea or abdominal pain. Review of Systems: Respiratory: No cough, No shortness of breath Cardiovascular: No chest pain Abdomen: No nausea Musculoskeletal: + joint pain (right knee pain) Physical Exam: General Appearance: no apparent distress Neck: no JVD Respiratory/Chest: lungs clear Cardiovascular: regular rate, rhythm Abdomen / GI: normal bowel sounds, non tender, soft Extremities: + pertinent finding (edema in the right lower extremities improving. Incisions intact. Small hematoma noted under the inferior incision. DP pulse +2 bilaterally.) Neurologic/Psychiatric: no motor/sensory deficits, oriented x 3 Skin: warm/dry Hospital Course 70-year-old female presents the emergency department with significant swelling and pain in the right lower extremity status post arthroplasty of the right knee 3 days prior to admission bridged with Lovenox for hx AVR-restarted coumadin POD#1 Severe right knee pain-aspiration reviewed. Hemarthrosis, septic joint. Aspiration growing gamma strep -ID following -was on Vancomycin. d/c'ed 07/12 as pt was still spiking fevers--> transitioned to Augmentin 1 by mouth twice a day for at least 2 weeks. Infectious disease will follow up in 2 weeks as an outpatient. -Continue cold compresses and elevation -oxy 15 mg po q 4 hr prn pain -continue PT/OT -Suture removal on 07/20 Fever-probably from septic joint. Concerning that she was still spiking fevers on vanc. -sinus pressure, MEHTA-->? sinusitis. Started on augmentin 07/12. -Blood cx x 4 neg to date -Flu PCR neg -if fevers persist, consider ANGIE -CXR neg -UA neg History of AVR x 2. Now has mechanical valve . INR 1.4 today -Initially placed on a heparin drip. Then started on full dose Lovenox -Coumadin restarted. She will need daily INRs and continued full dose Lovenox for bridging until INR is between 2.5-3.5 Elevated troponin-likely secondary to leak. No ischemic changes noted on the EKG. Echo with no wall motion abnormalities. EF preserved at 60-65%. Remains asymptomatic. Do not suspect ACS. -Continue Coreg 6.25 mg BID Constipation -Make MiraLAX scheduled daily in addition to docusate 100 mg BID HTN -Coreg as noted above -Continue spironolactone 25 mg daily Hypothyroidism -Continue Synthroid 88 g daily DVT prophylaxis -Lovenox -TEDS, SCDs CODE STATUS -LEVEL I FULL CODE DISPO -[facility] Total Time Spent: Greater than 30 minutes This includes examination of the patient, discharge planning, medication reconciliation, and communication with other providers. Discharge Instructions Please refer to the electronic Patient Visit Report (Discharge Instructions) for additional information. Follow-Up PCP 1 week orthopedics 07/20 for suture removal cardiology 1 month ID 2 weeks Additional Copies To Ward Whitten M.D.; Jennifer. Calvillo D.O.; Anant Mills M.D.; All Bonilla M.D.
--- NOTE | 2016-07-13 11:42 | Cardiology Follow-Up ---
Subjective Subjective Date of Service: Jul 13, 2016. Pt evaluation today including: conversation w/ patient, physical exam, chart review, lab review, review of studies, review of inpatient medication list Additional Details: Knee pain slightly improved. No chest pain, shortness of breath. Low grade fever this AM No other new complaints Problem List Medical Problems: (1) Elevated troponin Status: Acute (2) Fever Status: Acute (3) Hemarthrosis following procedure Status: Acute (4) Knee pain Status: Acute Review of Systems Constitutional: + fatigue, + fever, + weakness Respiratory: No cough, No shortness of breath Cardiac: No chest pain Abdomen: No nausea, No pain, No vomiting Neurologic: + problem reported (headache) Endo: + fatigue Skin: No rash Objective Vital Signs Last Vital Signs Documentation Date Time Temp Pulse Resp B/P Pulse Ox O2 Delivery O2 Flow Rate FiO2 07/13/16 10:49 Room Air 07/13/16 09:29 73 141/78 07/13/16 07:23 37.8 16 92 Physical Exam: General Appearance: WD/WN, no apparent distress Neck: supple Respiratory/Chest: lungs clear, normal breath sounds, no respiratory distress Cardiovascular: regular rate, rhythm, no edema, + pertinent finding (crisp mechanical aortic valve closure sound) Abdomen: normal bowel sounds, non tender, soft Extremities: + pertinent finding (s/p stich removal over anterior aspect of knee - mild erythema around site. No induration/warmth. Mild LE edema in distal RLE. ) Neurologic/Psychiatric: alert, oriented x 3 Skin: normal color Assessment and Plan 1. Post-operative hemarthrosis/possible infected hematoma-- sxs slowly improving ; fluid culture with gamma strep, 2nd GPC; on augmentin 2. S/p mechanical AVR-- lovenox bridge to coumadin, INR 1.4 3. Persistent low grade fevers - blood cx's remain negative - suspect 2/2 to problem number, low suspicion for PVE 4. Hypertension 5. Elevated troponin-- unlikely to be true plaque rupture ACS 6. History of VTE Stable from a cardiac standpoint. Low suspicion PVE. No further cardiac testing recommended at this time. INR trending up; continue Lovenox bridge, repeat INR saturday BP reasonably controlled on current regiment. From a cardiac standpoint OK for discharge when medical issues stable. Medications: Current Inpatient Medications Medications (Trade) Dose Ordered Sig/Ramesh Route Start Time Stop Time Status Last Admin Dose Admin Acetaminophen (Tylenol Tab) 650 mg Q4H PRN PO 07/08/16 17:00 08/07/16 16:59 07/11/16 00:44 650 MG Al Hydrox/Mg Hydrox/Simethicone (Maalox Max Susp) 15 ml Q4H PRN PO 07/08/16 17:00 08/07/16 16:59 Magnesium Hydroxide (Milk Of Magnesia Susp) 30 ml Q12H PRN PO 07/08/16 17:00 08/07/16 16:59 Zolpidem Tartrate (Ambien Tab) 5 mg HSZ PRN PO 07/08/16 17:00 08/07/16 16:59 Ondansetron HCl (Zofran Inj) 4 mg Q6H PRN IV 07/08/16 17:00 08/07/16 16:59 Nitroglycerin (Nitrostat Tab) 0.4 mg UD PRN SL 07/08/16 17:00 08/07/16 16:59 Aspirin (Ecotrin Tab) 81 mg QAM PO 07/09/16 09:00 08/08/16 08:59 07/13/16 09:03 81 MG Pantoprazole Sodium (Protonix Tab) 40 mg QAM PO 07/09/16 09:00 08/08/16 08:59 07/13/16 09:05 40 MG Fexofenadine HCl (Mary Jo Tab) 180 mg QAM PO 07/09/16 09:00 08/08/16 08:59 07/13/16 09:04 180 MG Levothyroxine Sodium (Synthroid Tab) 88 mcg HS PO 07/08/16 21:00 08/07/16 20:59 07/12/16 21:35 88 MCG Magnesium Oxide (Mag-Ox Tab) 400 mg BID PO 07/08/16 21:00 08/07/16 20:59 07/13/16 09:02 400 MG Carvedilol (Coreg Tab) 6.25 mg BID PO 07/09/16 21:00 08/08/16 20:59 07/13/16 09:04 6.25 MG Ascorbic Acid (Vitamin C Tab) 1,000 mg QAM PO 07/11/16 09:00 08/10/16 08:59 07/13/16 09:05 1,000 MG Spironolactone (Aldactone Tab) 25 mg QAM PO 07/11/16 09:00 08/10/16 08:59 07/13/16 09:02 25 MG Enoxaparin Sodium (Lovenox Inj) 80 mg Q12 SQ 07/10/16 22:00 08/09/16 21:59 07/13/16 09:06 80 MG Hydromorphone HCl (Dilaudid Inj) 0.5 mg Q4 PRN IV 07/10/16 18:15 07/24/16 18:14 Hydromorphone HCl (Dilaudid Inj) 1 mg Q4 PRN IV 07/10/16 18:15 07/24/16 18:14 07/11/16 23:47 1 MG Polyethylene (Miralax Powder Packet) 17 gm DAILY PO 07/11/16 09:00 08/10/16 08:59 07/13/16 09:02 17 GM Oxycodone HCl (Roxicodone Immediate Rel Tab) 15 mg Q4H PRN PO 07/11/16 14:45 07/25/16 14:44 07/13/16 09:00 15 MG Warfarin Sodium (Coumadin Tab) 5 mg DAILY@1600 PO 07/12/16 16:00 08/11/16 15:59 07/12/16 16:31 5 MG Amoxicillin/ Clavulanate Potassium (Augmentin Tab) 875 mg BIDM PO 07/12/16 17:45 07/22/16 17:44 07/13/16 09:01 875 MG Sodium Chloride ([place] Nasal [place]) 2 sprays Q1H PRN NA 07/12/16 12:00 08/11/16 11:59 Docusate Sodium (coLACE CAP) 100 mg BID PO 07/13/16 09:00 08/12/16 08:59 Lab Results: 07/13/16 06:42 Red Blood Count 3.21, Mean Corpuscular Volume 98.4, Mean Corpuscular Hemoglobin 32.7, Mean Corpuscular Hemoglobin Concent 33.2, Mean Platelet Volume 9.0, Neutrophils (%) (Auto) 58.5, Lymphocytes (%) (Auto) 18.7, Monocytes (%) (Auto) 16.1, Eosinophils (%) (Auto) 6.1, Basophils (%) (Auto) 0.3, Neutrophils # (Auto ) 4.43, Lymphocytes # (Auto) 1.41, Monocytes # (Auto) 1.22, Eosinophils # (Auto ) 0.46, Basophils # (Auto) 0.02 07/13/16 07:50 Test 07/12/16 23:25 07/13/16 06:42 07/13/16 07:50 Vancomycin Level Trough 12.3 mcg/ml (SEE COMMENT) White Blood Count 7.56 K/uL (4.8-10.8) Red Blood Count 3.21 M/uL (4.2-5.4) Hemoglobin 10.5 g/dL (12.0-16.0) Hematocrit 31.6 % (37-47) Mean Corpuscular Volume 98.4 fL (80-100) Mean Corpuscular Hemoglobin 32.7 pg (25-34) Mean Corpuscular Hemoglobin Concent 33.2 g/dl (32-36) Platelet Count 360 K/uL (130-400) Mean Platelet Volume 9.0 fL (7.4-10.4) Neutrophils (%) (Auto) 58.5 % Lymphocytes (%) (Auto) 18.7 % Monocytes (%) (Auto) 16.1 % Eosinophils (%) (Auto) 6.1 % Basophils (%) (Auto) 0.3 % Neutrophils # (Auto) 4.43 K/uL (1.4-6.5) Lymphocytes # (Auto) 1.41 K/uL (1.2-3.4) Monocytes # (Auto) 1.22 K/uL (0.11-0.59) Eosinophils # (Auto) 0.46 K/uL (0-0.5) Basophils # (Auto) 0.02 K/uL (0-0.2) RDW Standard Deviation 47.8 fL (36.4-46.3) RDW Coefficient of Variation 13.3 % (11.5-14.5) Immature Granulocyte % (Auto) 0.3 % Immature Granulocyte # (Auto) 0.02 K/uL (0.00-0.02) Prothrombin Time 14.9 SECONDS (9.0-12.0) Prothromb Time International Ratio 1.4 (0.9-1.1) Anion Gap 10.0 mmol/L (3-11) Est Creatinine Clear Calc Drug Dose 88.0 ml/min Estimated GFR () 105.7 Estimated GFR (Non- 91.2 BUN/Creatinine Ratio 14.3 (10-20) Calcium Level 8.5 mg/dl (8.5-10.1)
[2016-07-13] MEDS: DOCUSATE SODIUM 100 MG CAP PO SCH ×2 (12:30→20:52)
--- NOTE | 2016-07-13 14:36 | Hospitalist Progress Note ---
Hospitalist Progress Note Date of Service Jul 13, 2016. (Linda Cevallos PA-C) Subjective Right knee pain continues to improve. Able to bear more weight. Admits to feeling warm last night. Denies any body aches or chills. Denies any shortness of breath or chest pain/pressure. No dizziness. Last bowel movement was yesterday. No nausea. No abdominal pain. (Linda Cevallos PA-C) Objective Vital Signs Date Time Temp Pulse Resp B/P Pulse Ox O2 Delivery O2 Flow Rate FiO2 07/13/16 14:18 73 124/79 07/13/16 12:19 37.6 07/13/16 10:49 Room Air 07/13/16 09:29 73 141/78 Room Air 07/13/16 08:29 Room Air 07/13/16 07:23 37.8 78 16 146/77 92 Room Air 07/12/16 23:55 Room Air 07/12/16 23:35 37.2 71 20 122/65 93 Room Air 07/12/16 15:44 37.3 68 17 143/82 94 Room Air 07/12/16 15:30 Room Air (Linda Cevallos PA-C) Physical Exam General Appearance: no apparent distress Eyes: EOMI Neck: no JVD Respiratory/Chest: lungs clear Cardiovascular: regular rate, rhythm Abdomen: normal bowel sounds, non tender, soft Extremities: non-tender, + pertinent finding (continuing improvement of right lower extremity edema. Small hematoma noted on the inferior incision. No active drainage. Still with poor range of motion of the knee. DP pulse +2 bilaterally.) Neurologic/Psychiatric: no motor/sensory deficits, oriented x 3 (Linda Cevallos PA-C) Laboratory Results 07/13/16 06:42 Red Blood Count 3.21, Mean Corpuscular Volume 98.4, Mean Corpuscular Hemoglobin 32.7, Mean Corpuscular Hemoglobin Concent 33.2, Mean Platelet Volume 9.0, Neutrophils (%) (Auto) 58.5, Lymphocytes (%) (Auto) 18.7, Monocytes (%) (Auto) 16.1, Eosinophils (%) (Auto) 6.1, Basophils (%) (Auto) 0.3, Neutrophils # (Auto ) 4.43, Lymphocytes # (Auto) 1.41, Monocytes # (Auto) 1.22, Eosinophils # (Auto ) 0.46, Basophils # (Auto) 0.02 07/13/16 07:50 Test 07/12/16 23:25 07/13/16 06:42 07/13/16 07:50 Vancomycin Level Trough 12.3 mcg/ml (SEE COMMENT) White Blood Count 7.56 K/uL (4.8-10.8) Red Blood Count 3.21 M/uL (4.2-5.4) Hemoglobin 10.5 g/dL (12.0-16.0) Hematocrit 31.6 % (37-47) Mean Corpuscular Volume 98.4 fL (80-100) Mean Corpuscular Hemoglobin 32.7 pg (25-34) Mean Corpuscular Hemoglobin Concent 33.2 g/dl (32-36) Platelet Count 360 K/uL (130-400) Mean Platelet Volume 9.0 fL (7.4-10.4) Neutrophils (%) (Auto) 58.5 % Lymphocytes (%) (Auto) 18.7 % Monocytes (%) (Auto) 16.1 % Eosinophils (%) (Auto) 6.1 % Basophils (%) (Auto) 0.3 % Neutrophils # (Auto) 4.43 K/uL (1.4-6.5) Lymphocytes # (Auto) 1.41 K/uL (1.2-3.4) Monocytes # (Auto) 1.22 K/uL (0.11-0.59) Eosinophils # (Auto) 0.46 K/uL (0-0.5) Basophils # (Auto) 0.02 K/uL (0-0.2) RDW Standard Deviation 47.8 fL (36.4-46.3) RDW Coefficient of Variation 13.3 % (11.5-14.5) Immature Granulocyte % (Auto) 0.3 % Immature Granulocyte # (Auto) 0.02 K/uL (0.00-0.02) Prothrombin Time 14.9 SECONDS (9.0-12.0) Prothromb Time International Ratio 1.4 (0.9-1.1) Anion Gap 10.0 mmol/L (3-11) Est Creatinine Clear Calc Drug Dose 88.0 ml/min Estimated GFR () 105.7 Estimated GFR (Non- 91.2 BUN/Creatinine Ratio 14.3 (10-20) Calcium Level 8.5 mg/dl (8.5-10.1) Last 24 Hours Test 07/12/16 23:25 07/13/16 06:42 07/13/16 07:50 Vancomycin Level Trough 12.3 mcg/ml White Blood Count 7.56 K/uL Red Blood Count 3.21 M/uL Hemoglobin 10.5 g/dL Hematocrit 31.6 % Mean Corpuscular Volume 98.4 fL Mean Corpuscular Hemoglobin 32.7 pg Mean Corpuscular Hemoglobin Concent 33.2 g/dl Platelet Count 360 K/uL Mean Platelet Volume 9.0 fL Neutrophils (%) (Auto) 58.5 % Lymphocytes (%) (Auto) 18.7 % Monocytes (%) (Auto) 16.1 % Eosinophils (%) (Auto) 6.1 % Basophils (%) (Auto) 0.3 % Neutrophils # (Auto) 4.43 K/uL Lymphocytes # (Auto) 1.41 K/uL Monocytes # (Auto) 1.22 K/uL Eosinophils # (Auto) 0.46 K/uL Basophils # (Auto) 0.02 K/uL RDW Standard Deviation 47.8 fL RDW Coefficient of Variation 13.3 % Immature Granulocyte % (Auto) 0.3 % Immature Granulocyte # (Auto) 0.02 K/uL Prothrombin Time SECONDS 14.9 SECONDS Prothromb Time International Ratio 1.4 Sodium Level 135 mmol/L Potassium Level 3.7 mmol/L Chloride Level 100 mmol/L Carbon Dioxide Level 25 mmol/L Anion Gap 10.0 mmol/L Blood Urea Nitrogen 9 mg/dl Creatinine 0.65 mg/dl Est Creatinine Clear Calc Drug Dose 88.0 ml/min Estimated GFR () 105.7 Estimated GFR (Non- 91.2 BUN/Creatinine Ratio 14.3 Random Glucose 106 mg/dl Calcium Level 8.5 mg/dl (Linda Cevallos, PA-C) Assessment and Plan 70-year-old female presents the emergency department with significant swelling and pain in the right lower extremity status post arthroplasty of the right knee 3 days prior to admission bridged with Lovenox for hx AVR-restarted coumadin POD#1 Severe right knee pain-aspiration reviewed. Hemarthrosis, septic joint. Aspiration growing gamma strep -ID following -was on Vancomycin. d/c'ed 07/12 as pt was still spiking fevers--> transitioned to Augmentin 1 by mouth twice a day for at least 2 weeks. Infectious disease will follow up in 2 weeks as an outpatient. -Continue cold compresses and elevation -oxy 15 mg po q 4 hr prn pain -continue PT/OT -Suture removal on 07/20 Fever-probably from septic joint. Concerning that she was still spiking fevers on vanc. -sinus pressure, MEHTA-->? sinusitis. Started on augmentin 07/12. -Blood cx x 4 neg to date -Flu PCR neg -if fevers persist, consider ANGIE -CXR neg -UA neg History of AVR x 2. Now has mechanical valve . INR 1.4 today -Initially placed on a heparin drip. Then started on full dose Lovenox -Coumadin restarted. She will need daily INRs and continued full dose Lovenox for bridging until INR is between 2.5-3.5 Elevated troponin-likely secondary to leak. No ischemic changes noted on the EKG. Echo with no wall motion abnormalities. EF preserved at 60-65%. Remains asymptomatic. Do not suspect ACS. -Continue Coreg 6.25 mg BID Constipation -Make MiraLAX scheduled daily in addition to docusate 100 mg BID HTN -Coreg as noted above -Continue spironolactone 25 mg daily Hypothyroidism -Continue Synthroid 88 g daily DVT prophylaxis -Lovenox -TEDS, SCDs CODE STATUS -LEVEL I FULL CODE DISPO -[facility] when bed available (medically stable for d/c today). No bed today (Linda Cevallos, PA-C) PA Physician Supervision Note: I interviewed and examined the patient. Discussed with Norbert LEE and agree with findings and plan as documented in the note. Any exceptions or clarifications are listed here: None pt still with knee pain but less swelling, continue with low level fever overnight one stitch is reddened, was removed, culture drainage car is regular with murmur lungs are clear left knee is inspected, less swelling but still ecchymosis, suture removed small drainage found Hemarthrosis after arthroscopy, previously on full anticoagulation transition to lovenox and coumadin, negative additional blood cultures, cultured suture site, ID recommends 21 days of augmentin (Lenard Valladares M.D.)
[2016-07-13] MEDS: WARFARIN SOD 5 MG TAB PO SCH (16:01)
[2016-07-13] MEDS: LEVOTHYROXINE 88 MCG TAB PO SCH (20:52)
[2016-07-14 07:07] LABS: BASO % 0.3 %; BASO ABS # 0.02 K/uL (0-0.2); COMPLETE YES; EOS % 4.7 %; HEMATOCRIT 30.4 % (37-47); IG% 0.3 %; LYMPH % 15.8 %; LYMPH ABS # 1.22 K/uL (1.2-3.4); MEAN CELL VOLUME 97.7 fL (80-100); MEAN CORPUSCULAR HEMOGLOBIN 32.2 pg (25-34); MEAN CORPUSCULAR HGB CONC 32.9 g/dl (32-36); MEAN PLATELET VOLUME 9.2 fL (7.4-10.4); MONO % 14.5 %; NEUT % 64.4 %; PLATELET COUNT 420 K/uL (130-400); RED BLOOD COUNT 3.11 M/uL (4.2-5.4); WHITE BLOOD COUNT 7.71 K/uL (4.8-10.8)
[2016-07-14] MEDS: OXYCODONE HCL IR 5 MG TAB (IMMEDIATE RELEASE) PO PRN (07:39)
[2016-07-14 08:14] VITALS: BP 123/72; PULSE 75; TEMP 37.4; O2SAT 95
[2016-07-14 08:33] LABS: INR 1.5 (0.9-1.1); PROTHROMBIN TIME (PATIENT) 16.7 SECONDS (9.0-12.0)
[2016-07-14] MEDS: CARVEDILOL 6.25 MG TAB PO SCH (08:42)
[2016-07-14] MEDS: MAGNESIUM OXIDE 400 MG TAB PO SCH (08:43)
[2016-07-14] MEDS: POLYETHYLENE (MIRALAX) 17 GM PACK PO SCH (08:43)
[2016-07-14] MEDS: ASPIRIN 81 MG ECTAB PO SCH (08:43)
[2016-07-14] MEDS: SPIRONOLACTONE 25 MG TAB PO SCH (08:43)
[2016-07-14] MEDS: AMOXICILLIN/CLAVULANATE TAB 875 MG TAB PO SCH (08:43)
[2016-07-14] MEDS: FEXOFENADINE HCL 180 MG TAB PO SCH (08:43)
[2016-07-14] MEDS: ASCORBIC ACID 500 MG TAB PO SCH (08:43)
[2016-07-14] MEDS: PANTOprazole SOD 40 MG TAB PO SCH (08:43)
[2016-07-14] MEDS: DOCUSATE SODIUM 100 MG CAP PO SCH (08:43)
[2016-07-14] MEDS: ACETAMINOPHEN 325 MG TAB PO PRN (08:44)
[2016-07-14] MEDS: ENOXAPARIN 80 MG/0.8 ML SYR SQ SCH (08:44)
[2016-07-14 08:57] VITALS: BP 123/72; PULSE 75; TEMP 37.4; O2SAT 95
[2016-07-14 10:01] VITALS: O2SAT 95
[2016-07-14 15:30] VITALS: BP 128/81; PULSE 82; TEMP 36.9; O2SAT 96
== END 2016-07-14 11:48 | DRG 549 ==
LOC: ENRESERVTM → ENRESERVDT → CANRESERV → EDBD 12:24 → C.EDC 12:26 → C.2E 17:00 → EDBEDREQSVC 07-10 11:28 → C.MSN 07-10 13:45
PROVIDERS: ADMIT Hospitalist; ATTEND Internal Medicine
PROC: 0S9C3ZZ Drainage of Right Knee Joint, Percutaneous Approach (ICD-10-PCS; principal; 2016-07-08)
DX: M00.9 Pyogenic arthritis, unspecified (principal); M25.061 Hemarthrosis, right knee; I42.9 Cardiomyopathy, unspecified; J32.9 Chronic sinusitis, unspecified; I10 Essential (primary) hypertension; E03.9 Hypothyroidism, unspecified; M10.9 Gout, unspecified; Z95.2 Presence of prosthetic heart valve; Z86.718 Personal history of other venous thrombosis and embolism; Z86.711 Personal history of pulmonary embolism; Z87.891 Personal history of nicotine dependence; Z79.01 Long term (current) use of anticoagulants; M25.461 Effusion, right knee; K59.00 Constipation, unspecified; S83.281A Other tear of lateral meniscus, current injury, right knee, initial encounter; M94.261 Chondromalacia, right knee; M71.21 Synovial cyst of popliteal space [Baker], right knee; M65.9 Synovitis and tenosynovitis, unspecified; Y93.89 Activity, other specified; Y92.89 Other specified places as the place of occurrence of the external cause; Y99.8 Other external cause status; R09.89 Other specified symptoms and signs involving the circulatory and respiratory systems; Z90.710 Acquired absence of both cervix and uterus

== ENCOUNTER → 2016-07-25 | Outpatient (CLI) | payer OTHER, MEDICARE ==
[~2016-07-25] MED LIST changes: +AMOX1TAB43 PO; -APRE1TAB4 PO; -CARV3.122 PO; +CLC100 PO; +CRG625 PO; -ENOX80IN SQ; +LVNIS80 SQ; +MGNO400 PO; +MRLP17 PO; -OXYC-57 PO; +RXC5 PO; +SALI0.6510; +TYL325X PO
[2016-07-25 12:39] LABS: MAGNESIUM 2.1 mg/dl (1.8-2.4); THYROID STIMULATING HORMONE 9.47 uIu/ml (0.300-4.500)
== END | disposition home or self-care (01) ==
LOC: C.LAB1850 10:18
PROVIDERS: ATTEND Internal Medicine
DX: Z00.00 Encounter for general adult medical examination without abnormal findings (principal); Z11.59 Encounter for screening for other viral diseases; E03.9 Hypothyroidism, unspecified; E83.42 Hypomagnesemia

== ENCOUNTER → 2016-08-28 | Outpatient (CLI) | payer OTHER, MEDICARE ==
[2016-08-28 12:57] LABS: BLOOD UREA NITROGEN 10 mg/dl (7-18); CREATININE 0.65 mg/dl (0.60-1.20); GLUCOSE 110 mg/dl (70-99)
[2016-08-28 12:58] LABS: BUN/CREATININE RATIO 14.6 (10-20); CARBON DIOXIDE 26 mmol/L (21-32); CHLORIDE 111 mmol/L (98-107); MAGNESIUM 1.8 mg/dl (1.8-2.4); SODIUM 146 mmol/L (136-145)
[2016-08-28 13:08] LABS: THYROID STIMULATING HORMONE 0.028 uIu/ml (0.300-4.500)
== END | disposition home or self-care (01) ==
LOC: C.LAB1850 10:23
PROVIDERS: ATTEND Internal Medicine
DX: E03.9 Hypothyroidism, unspecified (principal); E83.42 Hypomagnesemia; I10 Essential (primary) hypertension

== ENCOUNTER → 2016-10-22 | Outpatient (CLI) | payer OTHER, MEDICARE | END | disposition home or self-care (01) | LOC: C.LAB1850 13:25 | PROVIDERS: ATTEND Internal Medicine | DX: J02.9 Acute pharyngitis, unspecified (principal) ==

== ENCOUNTER → 2016-12-04 | Outpatient (CLI) | payer OTHER, MEDICARE ==
--- NOTE | 2016-12-04 16:07 | MAMMOGRAPHY REPORT ---
BILATERAL DIGITAL SCREENING MAMMOGRAM WITH CAD: 12/04/2016 CLINICAL HISTORY: Routine screening. Patient has no complaints. TECHNIQUE: Bilateral CC and MLO views were obtained. Current study was also evaluated with a Compute r Aided Detection (CAD) system. COMPARISON: Comparison is made to exams dated: 07/08/2015 mammogram, 07/05/2014 mammogram, 06/30/2014 [facility] m[facility], 01/07/2013 mammogram, 12/12/2011 mammogram, and 06/22/2010 mammogram - [facility]. BREAST COMPOSITION: The tissue of both breasts is heterogeneously dense, which may obscure small mas ses. FINDINGS: There are mild vascular calcifications in the breasts. Scattered and grouped benign coars e calcifications and stable groupings of benign-appearing round microcalcifications. No suspicious s piculated or irregular mass, architectural distortion or cluster of new, suspicious microcalcificatio ns is seen. IMPRESSION: ACR BI-RADS CATEGORY 1: NEGATIVE There is no mammographic evidence of malignancy. A 1 year screening mammogram is recommended. The pa tient will receive written notification of the results. Approximately 10% of breast cancers are not detected with mammography. A negative mammographic report should not delay biopsy if a clinically suggestive mass is present. Edith Rodriguez M.D. ay/:12/04/2016 15:08:54 [employer] Warm Up: Domonique PEREZ(Deandre)(Kim)(BD), [facility] letter sent: Normal 1/2 BI-RADS Code: ACR BI-RADS Category 1: Negative
== END | disposition home or self-care (01) ==
LOC: C.MAMM 14:01
PROVIDERS: ATTEND Obstetrics & Gynecology
DX: Z12.31 Encounter for screening mammogram for malignant neoplasm of breast (principal)

== ENCOUNTER → 2016-12-12 | Outpatient (CLI) | payer OTHER, MEDICARE ==
[2016-12-12 12:40] LABS: BLOOD UREA NITROGEN 11 mg/dl (7-18); BUN/CREATININE RATIO 13.7 (10-20); CALCIUM 9.4 mg/dl (8.5-10.1); CARBON DIOXIDE 25 mmol/L (21-32); CHLORIDE 111 mmol/L (98-107); CREATININE 0.77 mg/dl (0.60-1.20); GLUCOSE 94 mg/dl (70-99); POTASSIUM 4.1 mmol/L (3.5-5.1); SODIUM 145 mmol/L (136-145)
[2016-12-12 12:41] LABS: CHOLESTEROL 226 mg/dl (0-200); HDL CHOLESTEROL 57 mg/dl; LDL CHOLESTEROL CALCULATED 120 mg/dl; TRIGLYCERIDES 246 mg/dl (0-150); VERY LOW DENSITY LIPOPROT CALC 49 mg/dl
--- NOTE | 2016-12-18 11:44 | CODING QUERY MEDICAL NECESSITY ---
CQSUPPORTING DIAGNOSIS NEEDED A supporting diagnosis is required for the test/procedure performed on this patient in order for us to be reimbursed by the patient's insurance. Please provide a supporting diagnosis for the following test/procedure listed below next to the test name along with your signature. *If there is no additional diagnosis for this patient that would support the following test/procedure please document that below next to the test/procedure. Test(s)/Procedure(s) that require a supporting diagnosis: DOS 12/12/16 VITAMIN D TEST Provider Signature: Date: Thank you Nancy Faust Health Information Management Once completed, please kindly fax back to [phone] For questions please call [phone]
== END | disposition home or self-care (01) ==
LOC: C.LAB1850 09:38
PROVIDERS: ATTEND Internal Medicine
DX: R73.9 Hyperglycemia, unspecified (principal); I10 Essential (primary) hypertension; E03.9 Hypothyroidism, unspecified; M85.80 Other specified disorders of bone density and structure, unspecified site

== ENCOUNTER → 2017-04-03 | Outpatient (CLI) | payer OTHER, MEDICARE | END | disposition home or self-care (01) | LOC: C.LABSPEC 13:39 | PROVIDERS: ATTEND Obstetrics & Gynecology | DX: N90.5 Atrophy of vulva (principal) ==

== ENCOUNTER → 2017-05-10 | Outpatient (CLI) | payer OTHER, MEDICARE ==
[~2017-05-10] MED LIST changes: +SALI-3 NAE; -SALI1SPR3 NAE
[2017-05-10 12:33] LABS: BLOOD UREA NITROGEN 13 mg/dl (7-18); CALCIUM 9.6 mg/dl (8.5-10.1); CARBON DIOXIDE 27 mmol/L (21-32); CREATININE 0.91 mg/dl (0.60-1.20); GLUCOSE 91 mg/dl (70-99); POTASSIUM 4.3 mmol/L (3.5-5.1); SODIUM 140 mmol/L (136-145)
[2017-05-10 12:44] LABS: CHOLESTEROL 238 mg/dl (0-200); LDL CHOLESTEROL CALCULATED 113 mg/dl
[2017-05-10 12:53] LABS: HEMOGLOBIN A1C 5.1 % (4.5-5.6)
== END | disposition home or self-care (01) ==
LOC: C.LAB1850 10:16
PROVIDERS: ATTEND Internal Medicine
DX: R73.9 Hyperglycemia, unspecified (principal); E78.1 Pure hyperglyceridemia; E03.9 Hypothyroidism, unspecified; M85.80 Other specified disorders of bone density and structure, unspecified site

== ENCOUNTER → 2017-05-20 | Outpatient (CLI) | payer OTHER, MEDICARE ==
[~2017-05-20] MED LIST changes: -SALI-3 NAE; +SALI1SPR3 NAE
--- NOTE | 2017-05-20 11:48 | DIAGNOSTIC IMAGING REPORT ---
R HAND MIN 3 VIEWS ROUTINE CLINICAL HISTORY: M79.646 Finger painright attn right [id number] pain COMPARISON: None. DISCUSSION: Mild generalized soft tissue edema. No acute bony abnormality. Somewhat diminished bone mineralization. No abnormal periosteal reaction. IMPRESSION: Mild soft tissue edema. Mild osteopenia. No acute bony abnormality. The above report was generated using voice recognition software. It may contain grammatical, syntax or spelling errors. Electronically signed by: Chao Drew M.D. 05/20/2017 11:46 AM Dictated Date/Time: 05/20/2017 11:45 AM
== END | disposition home or self-care (01) ==
LOC: C.RAD1850 11:20
PROVIDERS: ATTEND Internal Medicine
DX: M79.644 Pain in right finger(s) (principal); M85.841 Other specified disorders of bone density and structure, right hand

== ENCOUNTER → 2017-12-24 | Outpatient (CLI) | payer OTHER, MEDICARE ==
[~2017-12-24] MED LIST changes: +SALI-3 NAE; -SALI1SPR3 NAE
--- NOTE | 2017-12-25 13:37 | MAMMOGRAPHY REPORT ---
BILATERAL DIGITAL SCREENING MAMMOGRAM TOMOSYNTHESIS WITH CAD: 12/24/2017 CLINICAL HISTORY: Routine screening. Patient has no complaints. TECHNIQUE: The study was acquired using full field digital technology and interpreted from soft copy. Breast tomosynthesis in addition to standard 2D mammography was performed. Current study was also ev aluated with a Computer Aided Detection (CAD) system. COMPARISON: Comparison is made to exams dated: 12/04/2016 mammogram, 07/08/2015 mammogram, 07/05/2014 mamm ogram, 06/30/2014 mammogram, 01/07/2013 mammogram, and 12/12/2011 mammogram - [facility] . BREAST COMPOSITION: The tissue of both breasts is heterogeneously dense, which may obscure small mass es. FINDINGS: Diffuse bilateral scattered and grouped benign coarse heterogeneous calcifications. Minima l vascular calcification. Stable intramammary lymph node in the lateral left breast. No suspicious m ass, architectural distortion or cluster of microcalcifications is seen. IMPRESSION: ACR BI-RADS CATEGORY 1: NEGATIVE There is no mammographic evidence of malignancy. A 1 year screening mammogram is recommended.( [id number]) The patient will receive written notification of the results. Some breast cancers are not detected with mammography. A negative mammographic report should not enedina y biopsy if a clinically suggestive mass is present. Edith Rodriguez M.D. ay/:12/24/2017 15:30:53 Digital Media Director: Domonique Kirkland, RT(R)(M)(BD), [facility] letter sent: Normal 1/2 BI-RADS Code: ACR BI-RADS Category 1: Negative
== END | disposition home or self-care (01) ==
LOC: C.MAMM 14:37
PROVIDERS: ATTEND Obstetrics & Gynecology
DX: Z12.31 Encounter for screening mammogram for malignant neoplasm of breast (principal); Z77.098 Contact with and (suspected) exposure to other hazardous, chiefly nonmedicinal, chemicals

== ENCOUNTER 2023-03-27 13:23 | Observation (INO) ==
[2023-03-27 14:11] LABS: Basophils # (auto) 0.02 K/uL (0.00-0.20); Basophils % (auto) 0.2 %; Eosinophils # (auto) 0.05 K/uL (0.00-0.50); Eosinophils % (auto) 0.5 %; Hematocrit (blood only) 42.9 % (37.0-47.0); Hemoglobin 14.5 g/dl (12.0-16.0); Immature Granulocytes # (auto) 0.03 K/uL (0.01-0.20); Immature Granulocytes % (auto) 0.3 %; Lymphocytes # (auto) 1.16 K/uL (1.20-3.40); Lymphocytes % (auto) 12.3 %; Mean Corpuscular Hgb Conc 33.8 g/dL (32.0-36.0); Mean Corpuscular Volume 100.7 fL (80.0-100.0); Mean Platelet Volume 9.2 fL (9.4-12.4); Monocytes # (auto) 1.04 K/uL (0.11-0.59); Neutrophils # (auto) 7.15 K/uL (1.40-6.50); Neutrophils % (auto) 75.7 %; Platelet Count 273 K/uL (130-400); RDW Coefficient of Variation 14.9 % (11.5-14.5); RDW Standard Deviation 55.1 fL (36.4-46.3); Red Blood Count 4.26 M/uL (4.20-5.40); White Blood Count 9.45 K/ul (4.8-10.8)
[2023-03-27 14:23] LABS: Albumin Globulin Ratio 1.4 (0.9-2); Albumin Level 3.9 gm/dl (3.4-5.0); Bilirubin,Total 0.6 mg/dl (0.2-1.0); Calcium 9.5 mg/dl (8.6-10.3); Creatinine Clr Calc Pharmacy 77.5 ml/min; Est GFR (African American) 102.8 ml/min; Est GFR (Non-African American) 88.7 ml/min; Globulin 2.7 gm/dl (2.5-4.0); Potassium 4.1 mmol/L (3.5-5.1); Total Protein 6.6 gm/dl (6.0-8.3)
[2023-03-27 14:47] LABS: INR 3.5 (0.9-1.1); Partial Thromboplastin Ratio 1.6; Prothrombin Time 35.6 Seconds (9.0-12.0)
--- NOTE | 2023-03-27 15:01 | Emergency Department Note ---
Impression & Plan Elevated troponin, Elevated INR, Closed L1 vertebral fracture, Fall, Fever ED Provider Note NAME: KAUR PRICE AGE: 77 SEX: F : 1945 ARRIVES VIA: Walk-In INFORMANT: Patient ED PROVIDER(S): Osvaldo Mckeon DO CHIEF COMPLAINT: fall HPI: Patient is a 77-year-old female with past medical history of hypertension, hyperlipidemia, anticoagulated who presents to the ER following a fall last night which she does not remember as she was drinking a fair amount of alcohol. notes that he was present for this. He notes he witnessed her walking into the bathroom and she tripped over the threshold and fell. She did hit her head. There is no loss consciousness. She does take Coumadin. Majority of her pain is in the lower back and she does have some left shoulder pain. ADDITIONAL HISTORY OBTAINED: Per HPI Chronic Medical/Social Conditions Affecting Care: Per HPI PAST MEDICAL HISTORY:See Below PAST SURGICAL HISTORY:See Below FAMILY HISTORY:See Below SOCIAL HISTORY:See Below HOME MEDICATIONS:See Below ALLERGIES:See Below VITALS:See Below PHYSICAL EXAMINATION: GENERAL: alert, well appearing, well nourished, no distress, non-toxic HEAD: normal cephalic, contusion to the left forehead EYE EXAM: normal conjunctiva, PERRL and EOM's grossly intact OROPHARYNX: no exudate, no erythema, lips, buccal mucosa, and tongue normal and mucous membranes are moist NECK: supple, no nuchal rigidity, no adenopathy, non-tender CHEST: stable to compression anteriorly and posteriorly LUNGS: clear to auscultation. Normal chest wall mechanics HEART: no murmurs, S1 normal and S2 normal ABDOMEN: abdomen soft, non-tender, normo-active bowel sounds, no masses, no rebound or guarding. PELVIS: stable to compression anteriorly and posteriorly BACK: Back is symmetrical on inspection and there is no deformity, mild midline tenderness in the mid lumbar region UPPER EXTREMITIES: full active and passive range of motion of all joints without tenderness to palpation LOWER EXTREMITIES: full active and passive range of motion of all joints without tenderness to palpation NEURO EXAM: Normal sensorium, cranial nerves II-XII grossly intact, normal speech, no gross weakness of arms, no gross weakness of legs. GCS: 15. MEDICAL DECISION MAKING: Patient is a 77-year-old female who presents ER for above-stated complaint. IV was established blood work was obtained. Labs show no significant leukocytosis or anemia. INR was supratherapeutic at 3.5. BMP along with LFTs bilirubin was unremarkable. Troponin elevated at 31. UA was clean. COVID flu and RSV were pending. Chest x-ray was unremarkable. CT of the abdomen pelvis as well as lumbar spine shows a superior endplate L1 fracture. X-ray of the humerus was unremarkable. Patient was given IV fluids. She was updated bedside. Discussed with the hospitalist for further observation. She did not remember falling although I do favor secondary to intoxication this could have been cardiac in nature as she does have an elevated troponin. EKG was fairly unremarkable. Tetanus is up-to-date External Records Reviewed: Seen by Dr. Mills 10 days ago for diverticulitis Consults/Care Managements Discussions: Per [facility] Triage Nursing notes reviewed. Limited review of prior medical records performed Vital Signs: reviewed and remarkable for HTN Differential diagnosis: Cardiac ischemia, aortic dissection, pulmonary embolism, pneumothorax, pneumonia, pericarditis, myocarditis, esophageal rupture, GERD, cholecystitis, pancreatitis, musculoskeletal, as well as other pathologies. ER treatment provided: See below Diagnostics interpreted by me include EKG and cardiac monitoring as listed below: -Cardiac Monitoring: An order was placed for continuous cardiac monitoring. The monitor shows a rate of 80 with sinus rhythm. -ECG: Sinus rhythm rate 76 Left axis No PVCs QTc 425 -Laboratory studies:Interpreted by me as stated above in MDM and shown below. Imaging studies: Xrays: As interpreted by me: Portable AP upright 1 view of the chest shows no focal infiltrate CTs show: CT head lumbar spine and an abdomen pelvis as described above Procedures:none Critical Care: None Past Med/Surg History Medical History (Updated 03/27/23 @ 21:10 by Osvaldo Mckeon DO) Facial abrasion Arthritis Pulmonary embolism Vulvar atrophy Tubulovillous adenoma of colon Osteopenia Methylenetetrahydrofolate reductase deficiency Lichen sclerosus et atrophicus Hypothyroidism Hypomagnesemia Hypertension Hyperglycemia High triglycerides Diverticulosis of colon Anticoagulant long-term use Surgical History H/O colonoscopy 12/14/[address] Asad Baker Cataract extraction status, left eye 11/01/[address] Juan Luis Jefferson Cataract extraction status of right eye 12/06/[address] Juan Luis Ronny History of total abdominal hysterectomy and bilateral salpingo-oophorectomy History of tonsillectomy and adenoidectomy S/P right knee arthroscopy 07/06/[address] Jh Kearns Status post mechanical aortic valve replacement (2010) Family History Mother Diverticulitis Stroke Father Hypertension Stroke Grandfather (Paternal) Myocardial infarction Grandmother (Paternal) Diabetes Grandmother (Maternal) Stroke Denies family history of Ovarian cancer Prostate cancer Breast cancer Lung cancer Colorectal cancer Social History Smoking Status: Former smoker Tobacco Type: Cigarettes Age Started Using Tobacco: 22; Age Quit Using Tobacco: 34; packs per day: 1.5; Cigarettes Per Day: 30; Second Hand Exposure: No; Do You Dip or Chew Tobacco: No; Hx Alcohol Use: Yes Alcohol type: wine Alcohol Intake Frequency: 4 or More x per/Week Alcohol Intake Frequency Comment: 3-4 drinks per day Hx Substance Use: No Preferred Language: Mongolian Visual Impairment: Limited Hearing Ability: Normal Beliefs That Will Affect Care: None marital status: Current Living Situation: Spouse current occupational status: retired How many Children do You have: 1 Feels Safe at Home: Yes Childhood Exposure to Second-Hand Smoke: Yes caffeine: Yes Dental Care, Regularly: Yes Physical Activity Frequency: 3-4 Times per Week Physical Activity Frequency Comment: Walking, aerobic conditioning, strength training, stretching/yoga/pilates Seatbelt Use: always Sunscreen Use: Yes Assistive Devices: Glasses Allergies Allergies Allergy/AdvReac Type Severity Reaction Status Date / Time Sulfa (Sulfonamide Allergy Severe Hives; Verified 03/27/23 18:08 Antibiotics) Itching adhesive tape Allergy Intermediate SKIN Verified 03/27/23 18:08 IRRITATION Home Meds Home Medications Medication Instructions Recorded Confirmed aspirin 81 mg tablet,delayed 81 mg PO DAILY 12/02/18 03/27/23 release fexofenadine 180 mg tablet 180 mg PO DAILY 12/02/18 03/27/23 magnesium oxide 400 mg (241.3 mg 400 mg PO DAILY #30 tabs 12/02/18 03/27/23 magnesium) tablet ascorbic acid (vitamin C) 1,000 mg 1 gm PO DAILY 12/18/18 03/27/23 tablet calcitriol 3 mcg/gram topical 1 appln topical UD PRN NEEDED 12/18/18 03/27/23 ointment PER PT calcium carbonate 600 mg calcium 600 mg PO BID 12/18/18 03/27/23 (1,500 mg) tablet clobetasol 0.05 % topical ointment 1 appln topical BID PRN rash #1 g 12/18/18 03/27/23 cannabidiol 100 mg/mL oral solution 20 mg PO DAILY 12/23/18 03/27/23 bromfenac 0.07 % eye drops 1 drp ophthalmic (eye) DAILY 03/09/21 03/27/23 cholecalciferol (vitamin D3) 50 1,000 unit PO DAILY 03/09/21 03/27/23 mcg (2,000 unit) capsule carboxymethylcellulose 0.5 1 - 2 drp ophthalmic (eye) DAILY 09/22/21 03/27/23 %-glycerin 0.9 % eye drops PRN Dry Eyes propylene glycol 0.6 % eye drops 1 - 2 drp ophthalmic (eye) DAILY 09/22/21 03/27/23 PRN dry eye(s) acetaminophen 500 mg tablet 500 mg PO DIRECTED PRN 11/13/21 03/27/23 (Tylenol Extra Strength) FEVER/PAIN vit C 250 mg-vit E 90 mg-zinc 40 1 tab PO BID 08/13/22 03/27/23 mg-copper 1 [id number] capsule (PreserVision AREDS-2) levothyroxine 88 mcg tablet 88 mcg PO HS 01/15/23 03/27/23 [id number] antigen-AS01E 0.5 ml IM DIRECTED 03/27/23 03/27/23 adjuvant(PF) 120 mcg/0.5 mL IM suspension, kit amoxicillin 500 mg capsule 2,000 mg PO DIRECTED PRN PRIOR 03/27/23 03/27/23 TO DENTAL APPOINTMENTS multivitamin (Daily Multi-Vitamin 1 tab PO DAILY 03/27/23 03/27/23 tablet) warfarin 1 mg tablet 2 mg PO [id number] 03/27/23 03/27/23 warfarin 3 mg tablet 3 mg PO 3XWK 03/27/23 03/27/23 Previous Rx's Medication Instructions Recorded mecobalamin (vitamin B12) 1,000 1,000 mcg PO DAILY #30 tabs 11/10/21 mcg chewable tablet spironolactone 25 mg tablet 25 mg PO DAILY #90 tabs 10/02/22 estradiol 0.01% (0.1 mg/gram) See Rx Instructions .Route 01/14/23 vaginal cream .COMPLEX #42.5 grams rosuvastatin 5 mg tablet (Crestor) 5 mg PO Q2D #90 tabs 01/15/23 carvedilol 12.5 mg tablet 12.5 mg PO BID #180 tabs 02/03/23 Results & Data (ED) Vital Signs Vital Signs - 24 hr 03/27/23 13:33 03/27/23 17:49 03/27/23 17:55 Temperature 36.6 C 37.9 C H Temperature Source Temporal Artery Scan Oral Pulse Rate 95 H 78 Pulse Rate [Apical] Pulse Rhythm [Apical] Irregular Respiratory Rate 20 16 Respiratory Effort / Characteristics Non-Labored Spontaneous Respiratory Depth Normal Respiratory Pattern Regular Blood Pressure 164/94 H Blood Pressure [Right Arm] 145/97 H Blood Pressure Mean 117 Blood Pressure Mean [Right Arm] 113 Blood Pressure Position [Right Arm] Lying Pulse Oximetry 94 95 Oxygen Delivery Method Room Air Room Air Sepsis Recent Fever Within 48 Hours No Sepsis New/Unexplained Change in Mental Status N/A Sepsis Action Taken by Nursing No Action Required 03/27/23 19:00 03/27/23 19:00 Temperature Temperature Source Pulse Rate Pulse Rate [Apical] 76 80 Pulse Rhythm [Apical] Respiratory Rate 16 18 Respiratory Effort / Characteristics Non-Labored Spontaneous Respiratory Depth Normal Normal Respiratory Pattern Blood Pressure Blood Pressure [Right Arm] 142/80 H 138/83 Blood Pressure Mean Blood Pressure Mean [Right Arm] 100 101 Blood Pressure Position [Right Arm] Sitting Lying Pulse Oximetry 93 92 Oxygen Delivery Method Room Air Room Air Sepsis Recent Fever Within 48 Hours Sepsis New/Unexplained Change in Mental Status Sepsis Action Taken by Nursing Laboratory Data 03/27/23 13:45 03/27/23 13:45 Lab Results 03/27/23 03/27/23 Range/Units 13:45 19:24 WBC 9.45 (4.8-10.8) K/ul RBC 4.26 (4.20-5.40) M/uL Hgb 14.5 (12.0-16.0) g/dl Hct 42.9 (37.0-47.0) % MCV 100.7 H (80.0-100.0) fL MCH 34.0 (25.0-34.0) pg MCHC 33.8 (32.0-36.0) g/dL RDW Std Deviation 55.1 H (36.4-46.3) fL RDW Coeff of Bernie 14.9 H (11.5-14.5) % Plt Count 273 (130-400) K/uL MPV 9.2 L (9.4-12.4) fL Immature Gran % (Auto) 0.3 % Neut % (Auto) 75.7 % Lymph % (Auto) 12.3 % Warren % (Auto) 11.0 % Eos % (Auto) 0.5 % Baso % (Auto) 0.2 % Neut # (Auto) 7.15 H (1.40-6.50) K/uL Lymph # (Auto) 1.16 L (1.20-3.40) K/uL Warren # (Auto) 1.04 H (0.11-0.59) K/uL Eos # (Auto) 0.05 (0.00-0.50) K/uL Baso # (Auto) 0.02 (0.00-0.20) K/uL Immature Gran # (Auto) 0.03 (0.01-0.20) K/uL PT 35.6 H (9.0-12.0) Seconds INR 3.5 H (0.9-1.1) APTT 45.8 H* (21.0-31.0) Seconds PTT Ratio 1.6 Sodium 142 (136-145) mmol/L Potassium 4.1 (3.5-5.1) mmol/L Chloride 107 (98-107) mmol/L Carbon Dioxide 29 (21-32) mmol/L Anion Gap 6 (3-11) BUN 14 (6-23) mg/dl Creatinine 0.61 (0.6-1.2) mg/dl Est Cr Clr Drug Dosing 77.5 ml/min Est GFR ( Amer) 102.8 ml/min Est GFR (Non-Af Amer) 88.7 ml/min BUN/Creatinine Ratio 23.0 H (10-20) Glucose 112 H (70-99(Fasting)) mg/dl Calcium 9.5 (8.6-10.3) mg/dl Total Bilirubin 0.6 (0.2-1.0) mg/dl AST 24 (13-39) U/L ALT 31 (7-52) U/L Alkaline Phosphatase 84 (34-104) U/L Troponin I High Sens 31.2 H (0-14) pg/ml Total Protein 6.6 (6.0-8.3) gm/dl Albumin 3.9 (3.4-5.0) gm/dl Globulin 2.7 (2.5-4.0) gm/dl Albumin/Globulin Ratio 1.4 (0.9-2) Urine Color Yellow Urine Appearance Clear (Clear) Urine pH 8.0 H (4.5-7.5) Ur Specific [place] > 1.045 H (1.000-1.030) Urine Protein Negative (Negative) Urine Glucose (UA) Negative (Negative) Urine Ketones Negative (Negative) Urine Blood Negative (Negative) Urine Nitrite Negative (Negative) Urine Bilirubin Negative (Negative) Urine Urobilinogen Negative (Negative) Ur Leukocyte Esterase Negative (Negative) Administered Medications Discontinued Medications Sodium Chloride (Nss) 1,000 mls @ 999 mls/hr IV .Q1H1M ONE Stop: 03/27/23 20:30 Last Admin: 03/27/23 20:58 Dose: 999 mls/hr Documented By: RUSSELL Ioversol (Optiray 320 500ml) 89 ml IV ONCE ONE Stop: 03/27/23 17:26 Last Admin: 03/27/23 17:26 Dose: 89 ml Documented By: SERGIO Imaging Data Radiologist's Impression: Humerus X-Ray 03/27/23 13:38 XR humerus LT 2V CLINICAL HISTORY: Upper arm trauma TECHNIQUE: 2 radiographic views of the left humerus were obtained. Comparison: None available at the time of this dictation. FINDINGS: There is no evidence for fracture, subluxation or dislocation. The visualized portion of the shoulder and elbow joints are unremarkable. The overlying soft tissues are unremarkable. IMPRESSION: No acute osseous injury ACT 112: Negative or not required by law. Electronically signed by: Flo Medina M.D. 03/27/2023 3:45 PM Chest X-Ray 03/27/23 14:59 SINGLE VIEW CHEST CLINICAL HISTORY: Fall. FINDINGS: A PA chest radiograph is compared to study dated 07/11/2016. Correlation is made with chest CT dated 11/17/2008. The patient is status post midline sternotomy and cardiac valve surgery. The heart is enlarged noting atherosclerotic calcification of the thoracic ureter. The pulmonary vasculature is noncongested. Chronic interstitial thickening is similar previous. Scarring/atelectasis is noted at the lung bases. The lungs and pleural spaces are otherwise clear. No pneumothorax is seen. The skeletal structures are osteopenic. The bony thorax is grossly intact. IMPRESSION: Cardiomegaly with no active disease in the chest. ACT 112: Negative or not required by law. Electronically signed by: Jaspreet West M.D. 03/27/2023 3:[address] 03/27/23 14:59 CT SCAN OF THE BRAIN WITHOUT IV CONTRAST CLINICAL HISTORY: Fall. Head injury. COMPARISON STUDY: CT of the brain dated 10/28/2021. TECHNIQUE: Unenhanced axial CT scan of the brain is performed from the vertex to the skull base. A dose lowering technique was utilized adhering to the principles of ALARA. FINDINGS: Brain parenchyma: There is age-related involutional change noting mild subcortical and periventricular microangiopathic disease. There is no hemorrhage, mass effect, or evidence of acute territorial ischemia by CT criteria. Franco-white matter differentiation is preserved. No extra-axial fluid collection is seen. Ventricles, sulci, cisterns: Prominent secondary to involutional change. Intracranial vasculature: There is atherosclerotic calcification of the cavernous carotid arteries. Calvarium: The skeletal structures are osteopenic. No depressed calvarial fracture is seen. Soft tissues: There is minimal posterior scalp contusion. Sinuses and mastoids: The visualized paranasal sinuses are clear. The mastoid air cells are well pneumatized. Orbits: The bony orbits are grossly intact. There are bilateral ocular lens implants. IMPRESSION: There is no hemorrhage, mass effect, or evidence of acute territorial ischemia by CT criteria. ACT 112: Negative or not required by law. Electronically signed by: Jaspreet West M.D. 03/27/2023 5:[address] 03/27/23 14:59 CT SCAN OF THE ABDOMEN AND PELVIS WITH IV CONTRAST; CT SCAN OF THE LUMBAR SPINE WITH IV CONTRAST CLINICAL HISTORY: Fall. Low back pain. COMPARISON STUDY: Abdominal CT dated 03/19/2023. Abdominal ultrasound dated 12/19/2021. TECHNIQUE: Following the IV administration of 89 cc of Optiray 320, CT scan of the abdomen and pelvis is performed from the lung bases to the proximal femora. Additionally, CT scan of the lumbar spine is performed from the lower thoracic spine to the sacrum. Images for both examinations are reviewed in the axial, sagittal, and coronal planes. IV contrast was administered without complication. A dose lowering technique was utilized adhering to the principles of ALARA. CT DOSE: 1706.5 mGy.cm FINDINGS: Lung bases: The patient is status post midline sternotomy and aortic valve surgery. The heart is enlarged and without pericardial effusion. The coronary arteries are densely calcified. The lung bases are clear noting bibasilar scarring/atelectasis. A small hiatal hernia is noted. Liver: The contrast-enhanced liver is normal in size, contour, and attenuation. There is no intrahepatic biliary ductal dilatation. The hepatic veins and portal veins are patent. Gallbladder: There are small calcified gallstones with no CT evidence of acute cholecystitis. Irregular wall thickening of the fundal region is noted with possible postcontrast enhancement. Spleen: Normal in size and attenuation. Pancreas: Unremarkable. Adrenal glands: Unremarkable. Kidneys: The contrast enhanced kidneys demonstrate mild cortical atrophy and are without hydronephrosis. The kidneys enhance symmetrically. There is a punctate nonobstructing calculus on the left. Small renal cysts measure up to 14 mm. Additional subcentimeter cortical hypodensities also likely represent cysts but are too small for definitive characterization. Abdominal vasculature: The abdominal aorta is normal in course and caliber noting moderate to advanced atherosclerotic calcification. Bowel: There is moderate colonic diverticulosis without CT evidence of acute diverticulitis. No bowel obstruction is seen. The appendix is well-visualized and normal. Peritoneum: There is no intraperitoneal free air or abdominal ascites. Lymphadenopathy: None. Pelvic viscera: The bladder is normal as visualized. The uterus is surgically absent. No adnexal lesion is seen. Skeletal structures: The skeletal structures are osteopenic. See below for dedicated discussion of the lumbar spine. The bony pelvis and proximal femora appear intact. There is likely chronic deformity of S4. No lytic or blastic lesions are seen. There are chronic/healed right-sided rib fractures. LUMBAR SPINE: There is an acute superior endplate compression fracture of L1 with minimal loss of height. Mild paravertebral edema is noted. No retropulsed fragments are seen. No additional acute fracture is identified involving the lumbar spine. Vertebral body height is otherwise maintained. Alignment is preserved. Tiny anterior osteophytes are seen throughout. The transverse and spinous processes are intact. There is no spondylolysis. There is severe disc space narrowing at L5-S1 with associated endplate sclerosis. Mild disc space narrowing seen at the remaining lumbar levels. A posterior disc ostomy complexes noted at L5-S1. There is no CT evidence of large disc herniation or high-grade central canal stenosis. Mild facet arthropathy seen in the lower lumbar region. There is fatty atrophy of the paraspinous musculature. IMPRESSION: 1. There is no evidence of solid organ injury in the abdomen or pelvis. 2. Acute superior endplate compression fracture of L1 with minimal loss of height. No retropulsed fragments are seen. 3. Cholelithiasis without CT evidence of acute cholecystitis. 4. Abnormal appearance of the gallbladder wall in the fundal region is similar to previous. This may be related to stones, sludge, and adenomyomatosis. An underlying mass lesion would be impossible to exclude. This was also shown to be abnormal by ultrasound on 12/19/2021. Nonemergent surgical follow-up is advised. 5. Cardiomegaly. 6. Moderate colonic diverticulosis without CT evidence of acute diverticulitis. 7. Left-sided nephrolithiasis. 8. Additional findings as above. ACT 112: Negative or not required by law. Electronically signed by: Jaspreet West M.D. 03/27/2023 7:01 PM Abdomen/Pelvis CT 03/27/23 15:01 CT SCAN OF THE ABDOMEN AND PELVIS WITH IV CONTRAST; CT SCAN OF THE LUMBAR SPINE WITH IV CONTRAST CLINICAL HISTORY: Fall. Low back pain. COMPARISON STUDY: Abdominal CT dated 03/19/2023. Abdominal ultrasound dated 12/19/2021. TECHNIQUE: Following the IV administration of 89 cc of Optiray 320, CT scan of the abdomen and pelvis is performed from the lung bases to the proximal femora. Additionally, CT scan of the lumbar spine is performed from the lower thoracic spine to the sacrum. Images for both examinations are reviewed in the axial, sagittal, and coronal planes. IV contrast was administered without complication. A dose lowering technique was utilized adhering to the principles of ALARA. CT DOSE: 1706.5 mGy.cm FINDINGS: Lung bases: The patient is status post midline sternotomy and aortic valve surgery. The heart is enlarged and without pericardial effusion. The coronary arteries are densely calcified. The lung bases are clear noting bibasilar scarring/atelectasis. A small hiatal hernia is noted. Liver: The contrast-enhanced liver is normal in size, contour, and attenuation. There is no intrahepatic biliary ductal dilatation. The hepatic veins and portal veins are patent. Gallbladder: There are small calcified gallstones with no CT evidence of acute cholecystitis. Irregular wall thickening of the fundal region is noted with possible postcontrast enhancement. Spleen: Normal in size and attenuation. Pancreas: Unremarkable. Adrenal glands: Unremarkable. Kidneys: The contrast enhanced kidneys demonstrate mild cortical atrophy and are without hydronephrosis. The kidneys enhance symmetrically. There is a punctate nonobstructing calculus on the left. Small renal cysts measure up to 14 mm. Additional subcentimeter cortical hypodensities also likely represent cysts but are too small for definitive characterization. Abdominal vasculature: The abdominal aorta is normal in course and caliber noting moderate to advanced atherosclerotic calcification. Bowel: There is moderate colonic diverticulosis without CT evidence of acute diverticulitis. No bowel obstruction is seen. The appendix is well-visualized and normal. Peritoneum: There is no intraperitoneal free air or abdominal ascites. Lymphadenopathy: None. Pelvic viscera: The bladder is normal as visualized. The uterus is surgically absent. No adnexal lesion is seen. Skeletal structures: The skeletal structures are osteopenic. See below for dedicated discussion of the lumbar spine. The bony pelvis and proximal femora appear intact. There is likely chronic deformity of S4. No lytic or blastic lesions are seen. There are chronic/healed right-sided rib fractures. LUMBAR SPINE: There is an acute superior endplate compression fracture of L1 with minimal loss of height. Mild paravertebral edema is noted. No retropulsed fragments are seen. No additional acute fracture is identified involving the lumbar spine. Vertebral body height is otherwise maintained. Alignment is preserved. Tiny anterior osteophytes are seen throughout. The transverse and spinous processes are intact. There is no spondylolysis. There is severe disc space narrowing at L5-S1 with associated endplate sclerosis. Mild disc space narrowing seen at the remaining lumbar levels. A posterior disc ostomy complexes noted at L5-S1. There is no CT evidence of large disc herniation or high-grade central canal stenosis. Mild facet arthropathy seen in the lower lumbar region. There is fatty atrophy of the paraspinous musculature. IMPRESSION: 1. There is no evidence of solid organ injury in the abdomen or pelvis. 2. Acute superior endplate compression fracture of L1 with minimal loss of height. No retropulsed fragments are seen. 3. Cholelithiasis without CT evidence of acute cholecystitis. 4. Abnormal appearance of the gallbladder wall in the fundal region is similar to previous. This may be related to stones, sludge, and adenomyomatosis. An underlying mass lesion would be impossible to exclude. This was also shown to be abnormal by ultrasound on 12/19/2021. Nonemergent surgical follow-up is advised. 5. Cardiomegaly. 6. Moderate colonic diverticulosis without CT evidence of acute diverticulitis. 7. Left-sided nephrolithiasis. 8. Additional findings as above. ACT 112: Negative or not required by law. Electronically signed by: Jaspreet West M.D. 03/27/2023 7:01 PM Discharge Plan Visit Data Chief Complaint: Fall Stated Complaint: FALL, BACK AND KIDNEY PAINS ED Provider: Osvaldo Mckeon Discharge Problem: Elevated troponin, Elevated INR, Closed L1 vertebral fracture, Fall, Fever Forms Stand Alone Forms: My [facility] Prescriptions Prescriptions: No Action spironolactone 25 mg tablet 25 mg PO DAILY Qty: 90 3RF estradiol 0.01 % (0.1 mg/gram) cream See Rx Instructions .ROUTE .COMPLEX Qty: 42.5 1RF Dose Instruction: USE DIRECTED. Rx Instructions: Apply a small pea-sized amount to vulva 2 times per week carvedilol 12.5 mg tablet 12.5 mg PO BID Qty: 180 3RF calcitriol 3 mcg/gram ointment 1 appln topical UD PRN (Reason: NEEDED PER PT) Patient Comments: Apply 1 inch clobetasol 0.05 % ointment 1 appln topical BID PRN (Reason: rash) Qty: 1 Patient Comments: Apply up to twice daily as needed. carboxymethylcellulose-glycern 0.5-0.9 % drops 1 - 2 drp OP DAILY PRN (Reason: Dry Eyes) Patient Comments: instill 1 or 2 drops in the affected eye(s) as needed. mecobalamin (vitamin B12) 1,000 mcg tablet,chewable 1,000 mcg PO DAILY Qty: 30 0RF aspirin 81 mg tablet,delayed release (DR/EC) 81 mg PO DAILY fexofenadine 180 mg tablet 180 mg PO DAILY magnesium oxide 400 mg (241.3 mg magnesium) tablet 400 mg PO DAILY Qty: 30 ascorbic acid (vitamin C) 1,000 mg tablet 1 gm PO DAILY calcium carbonate 600 mg calcium (1,500 mg) tablet 600 mg PO BID bromfenac 0.07 % drops 1 drp OP DAILY Patient Comments: one drop into each eye cholecalciferol (vitamin D3) 50 mcg (2,000 unit) capsule 1,000 unit PO DAILY propylene glycol 0.6 % drops 1 - 2 drp OP DAILY PRN (Reason: dry eye(s)) cannabidiol 100 mg/mL solution 20 mg PO DAILY rosuvastatin [Crestor] 5 mg tablet 5 mg PO Q2D Qty: 90 2RF levothyroxine 88 mcg tablet 88 mcg PO HS PreserVision AREDS-2 250-90-40-1 mg capsule 1 tab PO BID acetaminophen [Tylenol Extra Strength] 500 mg Tablet 500 mg PO DIRECTED PRN (Reason: FEVER/PAIN) multivitamin [Daily Multi-Vitamin] Tablet 1 tab PO DAILY amoxicillin 500 mg capsule 2,000 mg PO DIRECTED PRN (Reason: PRIOR TO DENTAL APPOINTMENTS) Rx Instructions: Take 4 caps 30-60 minutes prior to dental appointment warfarin 3 mg tablet 3 mg PO 3XWK Protocol: Dose Management Condition: Saturday (Week One) Dose/Route: 2 mg Instruction: 2 x 1 mg tablets Condition: Saturday Dose/Route: 3 mg Instruction: 1 x 3 mg tablet Condition: Saturday Dose/Route: 2 mg Instruction: 2 x 1 mg tablets Condition: Saturday Dose/Route: 2 mg Instruction: 2 x 1 mg tablets Condition: Dose/Route: 2 mg Instruction: 2 x 1 mg tablets Condition: Saturday Dose/Route: 3 mg Instruction: 1 x 3 mg tablet Condition: Saturday Dose/Route: 3 mg Instruction: 1 x 3 mg tablet Condition: Saturday (Week Two) Dose/Route: 2 mg Instruction: 2 x 1 mg tablets Condition: Saturday Dose/Route: 3 mg Instruction: 1 x 3 mg tablet Condition: Saturday Dose/Route: 2 mg Instruction: 2 x 1 mg tablets Condition: Saturday Dose/Route: 3 mg Instruction: 1 x 3 mg tablet Condition: Dose/Route: 2 mg Instruction: 2 x 1 mg tablets Condition: Saturday Dose/Route: 3 mg Instruction: 1 x 3 mg tablet Condition: Saturday Dose/Route: 2 mg Instruction: 2 x 1 mg tablets Protocol Text: Adjustment Start Date: Saturday03/22/23 INR Value: 1.9 INR Date: 03/22/23 Recheck Date: 03/27/23 Rx Instructions: TAKES MON, SAT, & SAT EVENINGS, DOSE DEPENDS ON WEEKLY INR'S. warfarin 1 mg tablet 2 mg PO 4XWK Protocol: Dose Management Condition: Saturday (Week One) Dose/Route: 2 mg Instruction: 2 x 1 mg tablets Condition: Saturday Dose/Route: 3 mg Instruction: 1 x 3 mg tablet Condition: Saturday Dose/Route: 2 mg Instruction: 2 x 1 mg tablets Condition: Saturday Dose/Route: 2 mg Instruction: 2 x 1 mg tablets Condition: Dose/Route: 2 mg Instruction: 2 x 1 mg tablets Condition: Saturday Dose/Route: 3 mg Instruction: 1 x 3 mg tablet Condition: Saturday Dose/Route: 3 mg Instruction: 1 x 3 mg tablet Condition: Saturday (Week Two) Dose/Route: 2 mg Instruction: 2 x 1 mg tablets Condition: Saturday Dose/Route: 3 mg Instruction: 1 x 3 mg tablet Condition: Saturday Dose/Route: 2 mg Instruction: 2 x 1 mg tablets Condition: Saturday Dose/Route: 3 mg Instruction: 1 x 3 mg tablet Condition: Dose/Route: 2 mg Instruction: 2 x 1 mg tablets Condition: Saturday Dose/Route: 3 mg Instruction: 1 x 3 mg tablet Condition: Saturday Dose/Route: 2 mg Instruction: 2 x 1 mg tablets Protocol Text: Adjustment Start Date: Saturday03/22/23 INR Value: 1.9 INR Date: 03/22/23 Recheck Date: 03/27/23 Rx Instructions: TAKES SUN, , , & SAT EVENINGS. DOSE DEPENDS ON WEEKLY INR'S. RSVPreF3 antigen-AS01E (PF) 120 mcg/0.5 mL suspension for reconstitution 0.5 ml IM DIRECTED Rx Instructions: Dx. I10, R73.9, E03.9, Z95.2, L40.50 Referrals Referrals: Pro,Anant Aguilar MD [Primary Care Provider] - Discharge Problem: Closed L1 vertebral fracture Qualifiers: Encounter type: initial encounter Fracture morphology: unspecified fracture morphology Qualified Code(s): S32.019A - Unspecified fracture of first lumbar vertebra, initial encounter for closed fracture Fall Qualifiers: Encounter type: initial encounter Qualified Code(s): W19.XXXA - Unspecified fall, initial encounter Fever Qualifiers: Fever type: unspecified Qualified Code(s): R50.9 - Fever, unspecified
[2023-03-27 15:10] LABS: Partial Thromboplastin Time 45.8 Seconds (21.0-31.0)
--- NOTE | 2023-03-27 15:47 | XRay Report ---
XR humerus LT 2V CLINICAL HISTORY: Upper arm trauma TECHNIQUE: 2 radiographic views of the left humerus were obtained. Comparison: None available at the time of this dictation. FINDINGS: There is no evidence for fracture, subluxation or dislocation. The visualized portion of the shoulder and elbow joints are unremarkable. The overlying soft tissues are unremarkable. IMPRESSION: No acute osseous injury ACT 112: Negative or not required by law. Electronically signed by: Flo Medina M.D. 03/27/2023 3:45 PM
--- NOTE | 2023-03-27 15:52 | XRay Report ---
SINGLE VIEW CHEST CLINICAL HISTORY: Fall. FINDINGS: A PA chest radiograph is compared to study dated 07/11/2016. Correlation is made with chest C T dated 11/17/2008. The patient is status post midline sternotomy and cardiac valve surgery. The heart is enlarged noting atherosclerotic calcification of the thoracic ureter. The pulmonary vasculature i s noncongested. Chronic interstitial thickening is similar previous. Scarring/atelectasis is noted at the lung bases. The lungs and pleural spaces are otherwise clear. No pneumothorax is seen. The skele kishan structures are osteopenic. The bony thorax is grossly intact. IMPRESSION: Cardiomegaly with no active disease in the chest. ACT 112: Negative or not required by law. Electronically signed by: Jaspreet West M.D. 03/27/2023 3:50 PM
[2023-03-27 16:02] LABS: Troponin I High Sensitivity 31.2 pg/ml (0-14)
[2023-03-27] MEDS ORDERED: OPTIRAY 320 500ml IV ONE (17:25)
--- OUTSIDE RECORDS SUMMARY | 2023-03-27 17:41 | External Medical Summary | Summary of Care ---
Author Name Unknown Organization [facility] Address [address] [place] [address] Phone [phone] Care Team Providers Care Application Release Manager Name Role Phone Anant Mills MD Primary Care Provider [phone] Reason for Visit * Reason Comments Follow Up 6 month f/u for psor iasis. Hx of non-melanoma skin cancer. No new concerns. Encounter Details Date Type Department Care Team (Late st Contact Info) Description 03/21/2023 1:15 PM EST Office Visit Dermatology [facility] [address] [place] [address] Luli Melara MD [address] [place] [address] Psoriasis*; Telogen effluvium; Skin erythema Allergies Active Allergy Reactions Criticality Noted Date Comments Adhesive Tape 11/07/2017 Allergic to adhesive tape on bandages. Sulfa Antibiotics Itching,Rash 04/06/2010 documented as of this encounter (statuses as of 03/24/2023) Medications Medication Sig Dispensed Refills Start Date End Date Status CENTRUM SILVER PO TABS one daily 0 Active CALTRATE 600+D 600-400 MG-UNIT PO TABS one tablet twice a day 0 Active VITAMIN C CR 1000 MG PO TBCR one a day 0 Active FEXOFENADINE HCL 180 MG PO TABS one daily 0 Active CETAPHIL MOISTURIZING EX CREA daily 0 Active ASPIRIN 81 MG PO TABS 1 tab daily 0 Ac tive SYSTANE 0.4-0.3 % OP GEL Nightly 0 Active SPIRONOLACTONE 25 MG PO TABS 1 tab daily 0 Active REFRESH OPTIVE ADVANCED 0.5-1-0.5 % OP SOLN as directed 0 Active OCUVITE ADULT 50+ PO CAPS 2 tabs once daily 0 Active warfarin sodium (COUMADIN) 3 MG Tablet As directed 0 Active warfarin sodium (COUMADIN) 1 MG Tablet As directed 0 Active carvedilol (COREG) 6.25 MG Tablet Take 1 Tablet by mouth 2 times a day with morning and evening meals. 0 Active levothyroxine (LEVOXYL) 88 MCG Tablet Sat-Sun 0 11/09/2016 Active clobetasol propionate 0.05 % external solutionIndications:O ther psoriasis apply to scalp after bathing as needed for psoriasis 100 mL 3 08/26/2017 Active Bacillus Coagulans-Inulin (PROBIOTIC FORMULA) 1-250 BILLION-MG CAPS 1 daily 0 Act fern PROLENSA 0.07 % SOLN 1 drop in each eye in the morning 6 01/24/2018 Active ,STUDY MED, cannabidiol (EPIDIOLEX) 100 MG/ML LIQD Take by mouth 2 times a day. 0 Active clobetasol propionate (TEMOVATE) 0.05 % creamIndications:Psor iasis apply during day as needed for body flares of psoriasis 60 g 3 08/31/2019 Active amoxicillin (AMOXIL) 500 MG Capsule Take 1 Capsule by mouth. 4 tabs one hour before dental procedure 0 Active carboxymethylcell-gly cerin PF (REFRESH OPTIVE PF) 0.5-0.9 % SOLN 0 04/10/2013 Active Estradiol 0.1 MG/GM vaginal cream Administer 2 g into the vagina in the morning. 0 Active Hydrocortisone 2.5 % External CreamIndications:Psor iasis Apply to head/neck rash daily as needed 20 g 1 07/04/2021 Active Clobetasol Propionate 0.05 % External Ointment (Temovate)Indications :Psoriasis APPLY UP TO TWICE DAILY NEEDED FOR SYMPTOMS 60 g 3 07/10/2021 Active Rosuvastatin Calcium 5 MG Oral Tablet (Crestor) 1 Tablet. 0 08/13/2022 Active documented as of this encounter (statuses as of 03/24/2023) Active Problems Problem Noted Date Diagnosed Date PSA (psoriatic arthritis) 09/09/2019 Hx of actinic keratosis 07/24/2018 H/O aortic valve replacement 07/31/2017 Overview: mechanical Psoriasis 04/05/2016 Hx of basal cell carcinoma 11/19/2014 Overview: Hx BCC R nasal dorsum 09/2014 Hypothyroid documented as of this encounter (statuses as of 03/24/2023) Immunizations Name Administration Dates Next Due COVID-19 mRNA, LNP-s, No Pre serve, 2-Dose Series (Pfizer) 07/01/2020,06/10/2020 TDAP (age 11 and older)(Adacel) 10/27/2017 documented as of this encounter Social History Tobacco Use Types Packs/Day Years Used Date Smoking Tobacco: Former Cigarettes 1.5 15 Q uit: 05/06/1979 Smokeless Tobacco: Never Alcohol Use Standard Drinks/Week Comments Yes 5.8 (1 standard drink = 0.6 oz p ure alcohol) occ Sex and Gender Information Value Date Recorded Sex Assigned at Female 11/21/2022 12:27 PM EDT Gender Identity Female 11/21/2022 12:27 PM EDT Sexual Orientation Straight 11/21/2022 12 :27 PM EDT Job Start Date Occupation Industry Not on file Not on file Not on file documented as of this encounter Progress Notes * Luli Melara MD - 03/21/2023 1:22 PM EST SUBJECTIVE: History of Present Illness: Karyn Torres is a 77 year old female seen today for follow up of psoriasis. Date Last Appointment: 11/28/2022 (in office), Visit date not found (telemedicine) Hx psoriasis - L calf still flares, using moisturizer, not particularly symptomatic currently, has various topical steroids at home, psoriasis and joints otherwise doing well Hx Otezla, D/C in past based on cost Pt also noting hair loss over the past few months diffusely, using biotin supplement, no other scalp symptoms. Last skin check 09/2022 REVIEW OF SYSTEMS: SKIN: No other new or changing moles. HEME/LYMPH: No new or enlarging lumps or bumps. MEDICA TIONS: Current Outpatient Medications Medication Sig Dispense Refill CENTRUM SILVER PO TABS one daily CALTRATE 600+D 600-400 MG-UNIT PO TABS one tablet twice a day VITAMIN C CR 1000 MG PO TBCR one a day FEXOFENADINE HCL 180 MG PO TABS one daily CETAPHIL MOISTURIZING EX CREA daily ASPIRIN 81 MG PO TABS 1 tab daily SYSTANE 0.4-0.3 % OP GEL Nightly SPIRONOLACTONE 25 MG PO TABS 1 tab daily REFRESH OPTIVE ADVANCED 0.5-1-0.5 % OP SOLN as directed warfarin sodium (COUMADIN) 3 MG Tablet As directed warfarin sodium (COUMADIN) 1 MG Tablet As directed carvedilol (COREG) 6.25 MG Tablet Take 1 Tablet by mouth 2 times a day with morning and evening meals. levothyroxine (LEVOXYL) 88 MCG Tablet Sat-Sun clobetasol propionate 0.05 % external solution apply to scalp after bathing as needed for [id number] mL 3 Bacillus Coagulans-Inulin (PROBIOTIC FORMULA) 1-250 BILLION-MG CAPS 1 daily ,STUDY MED, cannabidiol (EPIDIOLEX) 100 MG/ML LIQD Take by mouth 2 times a day. clobetasol propionate (TEMOVATE) 0.05 % cream apply during day as needed for body flares of psoriasis 60 g 3 amoxicillin (AMOXIL) 500 MG Capsule Take 1 Capsule by mouth. 4 tabs one hour before dental procedure carboxymethylcell-glycerin PF (REFRESH OPTIVE PF) 0.5-0.9 % SOLN Estradiol 0.1 MG/GM vaginal cream Administer 2 g into the vagina in the morning. Hydrocortisone 2.5 % External Cream Apply to head/neck rash daily as needed 20 g 1 Clobetasol Propionate 0.05 % External Ointment (Temovate) APPLY UP TO TWICE DAILY NEEDED FOR SYMPTOMS 60 g 3 Rosuvastatin Calcium 5 MG Oral Tablet (Crestor) 1 Tablet. OCUVITE ADULT 50+ PO CAPS 2 tabs once daily (Patient not taking: Reported on 03/21/2023) PROLENSA 0.07 % SOLN 1 drop in each eye in the morning (Patient not taking: Reported on 03/21/2023)6 No current facility-administered medications for this visit. ALLERG IES: Adhesive tape and Sulfa antibiotics OBJECTIVE: GEN: Healthy, alert, no distress, appears oriented, pleasant, and cooperative. SKIN: Detailed exam of hair, face including lids and lips, neck, and left lower ext. (leg, foot, toes) completed and are normal except: 1. L calf - erythema 2. Thinning hair diffusely, no scarring Also examined face per pt request, no lesions of concern ASSESS MENT/PLAN: 1. Psoriasis - BSA: 0%, Special Site: Scalp: moderate; Status: improved. Calf is not active psoriasis or tinea (see prior notes), just PIE and likely some stasis changes and atrophy, erythema improving slowly with time. Con't emollients, can use clobetasol oint/cream/soln for new flares nightly as needed depending on site, pt aware of SEs. 2. 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 Alex explained. Follow-up: 6 months There were no barriers tolearning and no other pain was related to today's visit. The patient and/or person accompanying patient demonstrates understanding of the visit and treatment. Luli Melara MD 03/21/2023 1:24 PM documented in this encounter Nursing Notes * Fatimah Cochran LPN - 03/21/2023 1:11 PM EST Patient identified by full name and date of Chief Complaint Patient presents with Follow Up 6 month f/u for psoriasis. Hx of non-melanoma skin cancer. No new concerns. documented in this encounter Plan of Treatment Upcoming Encounters Date Type Department Care Team (Late st Contact Info) Description 07/08/2023 9:50 AM EST Office Visit Ophthalmology, [address] [place] [address] Kalpesh Montes De Oca, DO [address] [place], [place] [address] [address] 09/19/2023 11:15 AM EDT Office Visit [facility] [address] [place] [address] Javier Sheldon MD [address] [place] [id number] Health Maintenance Due Date Last Done Comments DXA Scan 1945 Depression Screening 1957 TSH 11/30/1965 Pneumococcal Vaccine: 65+ Years (2 - PPSV23 or PCV20) 05/21/2019 05/21/2018 COVID-19 Vaccine (2022- season) 2023 10/25/2022, 02/02/2022, 08/07/2021, Additional history exists Influenza Vaccine (FLU shot) (#1) 2023 02/02/2022, 01/25/2020, 02/16/2019 DTaP,Tdap,and Td Vaccines (2 - Td or Tdap) 10/28/2027 10/27/2017 Zoster Vaccines Completed 03/10/2019, 12/2018, 01/28/1949 GARDASIL-HPV IMMUNIZATION SERIES Aged Out No longer eligible based on patient's age to complete this topic Hepatitis B Aged Out No longer eligi ble based on patient's age to complete this topic MENINGOCOCCAL (MENACTRA/MENVEO) Aged Out No longer eligible based on patient's age to complete this topic documented as of this encounter Medical Devices Not on filedocumented as of this encounter Visit Diagnoses Diagnosis Psoriasis- Primary Other psoriasis Telogen effluvium Skin erythema Unspecified erythematous condition documented in this encounter Care Teams Application Release Manager Relationship Specialty Start Date End Date Pro, Anant Kumar MD [address] [place], [place] [address] PCP - General Internal Medicine 04/13/14 documented as of this encounter
--- NOTE | 2023-03-27 17:44 | CT Scan Report ---
CT SCAN OF THE BRAIN WITHOUT IV CONTRAST CLINICAL HISTORY: Fall. Head injury. COMPARISON STUDY: CT of the brain dated 10/28/2021. TECHNIQUE: Unenhanced axial CT scan of the brain is performed from the vertex to the skull base. A do se lowering technique was utilized adhering to the principles of ALARA. FINDINGS: Brain parenchyma: There is age-related involutional change noting mild subcortical and periventricula r microangiopathic disease. There is no hemorrhage, mass effect, or evidence of acute territorial isc hemia by CT criteria. Franco-white matter differentiation is preserved. No extra-axial fluid collection is seen. Ventricles, sulci, cisterns: Prominent secondary to involutional change. Intracranial vasculature: There is atherosclerotic calcification of the cavernous carotid arteries. Calvarium: The skeletal structures are osteopenic. No depressed calvarial fracture is seen. Soft tissues: There is minimal posterior scalp contusion. Sinuses and mastoids: The visualized paranasal sinuses are clear. The mastoid air cells are well pneu matized. Orbits: The bony orbits are grossly intact. There are bilateral ocular lens implants. IMPRESSION: There is no hemorrhage, mass effect, or evidence of acute territorial ischemia by CT zina farris. ACT 112: Negative or not required by law. Electronically signed by: Jaspreet West M.D. 03/27/2023 5:42 PM
--- NOTE | 2023-03-27 19:03 | CT Scan Report ---
CT SCAN OF THE ABDOMEN AND PELVIS WITH IV CONTRAST; CT SCAN OF THE LUMBAR SPINE WITH IV CONTRAST CLINICAL HISTORY: Fall. Low back pain. COMPARISON STUDY: Abdominal CT dated 03/19/2023. Abdominal ultrasound dated 12/19/2021. TECHNIQUE: Following the IV administration of 89 cc of Optiray 320, CT scan of the abdomen and pelvi s is performed from the lung bases to the proximal femora. Additionally, CT scan of the lumbar spine is performed from the lower thoracic spine to the sacrum. Images for both examinations are reviewed i n the axial, sagittal, and coronal planes. IV contrast was administered without complication. A dose lowering technique was utilized adhering to the principles of ALARA. CT DOSE: 1706.5 mGy.cm FINDINGS: Lung bases: The patient is status post midline sternotomy and aortic valve surgery. The heart is enla rged and without pericardial effusion. The coronary arteries are densely calcified. The lung bases ar e clear noting bibasilar scarring/atelectasis. A small hiatal hernia is noted. Liver: The contrast-enhanced liver is normal in size, contour, and attenuation. There is no intrahepa tic biliary ductal dilatation. The hepatic veins and portal veins are patent. Gallbladder: There are small calcified gallstones with no CT evidence of acute cholecystitis. Irregul ar wall thickening of the fundal region is noted with possible postcontrast enhancement. Spleen: Normal in size and attenuation. Pancreas: Unremarkable. Adrenal glands: Unremarkable. Kidneys: The contrast enhanced kidneys demonstrate mild cortical atrophy and are without hydronephros is. The kidneys enhance symmetrically. There is a punctate nonobstructing calculus on the left. Small renal cysts measure up to 14 mm. Additional subcentimeter cortical hypodensities also likely represe nt cysts but are too small for definitive characterization. Abdominal vasculature: The abdominal aorta is normal in course and caliber noting moderate to advance d atherosclerotic calcification. Bowel: There is moderate colonic diverticulosis without CT evidence of acute diverticulitis. No bowel obstruction is seen. The appendix is well-visualized and normal. Peritoneum: There is no intraperitoneal free air or abdominal ascites. Lymphadenopathy: None. Pelvic viscera: The bladder is normal as visualized. The uterus is surgically absent. No adnexal lesi on is seen. Skeletal structures: The skeletal structures are osteopenic. See below for dedicated discussion of th e lumbar spine. The bony pelvis and proximal femora appear intact. There is likely chronic deformity of S4. No lytic or blastic lesions are seen. There are chronic/healed right-sided rib fractures. LUMBAR SPINE: There is an acute superior endplate compression fracture of L1 with minimal loss of hei ght. Mild paravertebral edema is noted. No retropulsed fragments are seen. No additional acute fractu re is identified involving the lumbar spine. Vertebral body height is otherwise maintained. Alignment is preserved. Tiny anterior osteophytes are seen throughout. The transverse and spinous processes ar e intact. There is no spondylolysis. There is severe disc space narrowing at L5-S1 with associated en dplate sclerosis. Mild disc space narrowing seen at the remaining lumbar levels. A posterior disc ost nadiya complexes noted at L5-S1. There is no CT evidence of large disc herniation or high-grade central canal stenosis. Mild facet arthropathy seen in the lower lumbar region. There is fatty atrophy of the paraspinous musculature. IMPRESSION: 1. There is no evidence of solid organ injury in the abdomen or pelvis. 2. Acute superior endplate compression fracture of L1 with minimal loss of height. No retropulsed fra gments are seen. 3. Cholelithiasis without CT evidence of acute cholecystitis. 4. Abnormal appearance of the gallbladder wall in the fundal region is similar to previous. This may be related to stones, sludge, and adenomyomatosis. An underlying mass lesion would be impossible to e xclude. This was also shown to be abnormal by ultrasound on 12/19/2021. Nonemergent surgical follow-up is advised. 5. Cardiomegaly. 6. Moderate colonic diverticulosis without CT evidence of acute diverticulitis. 7. Left-sided nephrolithiasis. 8. Additional findings as above. ACT 112: Negative or not required by law. Electronically signed by: Jaspreet West M.D. 03/27/2023 7:01 PM
[2023-03-27] MEDS ORDERED: SODIUM CHLORIDE 0.9% 1,000 ML IV ONE (19:30)
[2023-03-27 19:47] LABS: Appearance Urine Clear (Clear); Bilirubin Urine Negative (Negative); Blood Urine Negative (Negative); Color Urine Yellow; Glucose Urine UA Negative (Negative); Ketones Urine Negative (Negative); Leukocyte Esterase Urine Negative (Negative); Nitrite Urine Negative (Negative); Protein Urine Negative (Negative); Specific Gravity Urine > 1.045 (1.000-1.030); Urobilinogen Urine Negative (Negative)
--- NOTE | 2023-03-27 19:50 | History & Physical Report ---
Date of Service March 27, 2023 Assessment & Plan (1) Fall: Plan: Fall while intoxicated on the night of 03/26 Patient on Coumadin 8/10 lower back pain on arrival; worse on left side Lumbar spine CT revealed acute superior endplate compression fracture of L1 Head CT NAF Left humerus x-ray NAF Mild fever at 37.9 C; no leukocytosis CXR NAF Abdomen/pelvis CT revealed no solid organ injury; abnormal appearance of the gallbladder, but similar to US on 12/19/21 Electrolytes WNL Acetaminophen 650 mg p.o. q6h as needed for pain 1-3 Dilaudid 0.25-0.50 mg IV q2h as needed for breakthrough pain Avoid Lidoderm patch as patient has had adhesive skin irritation in the past Can use Voltaren gel topically PT/OT consult Consider ortho-spine consult if pain is not improved with medicine A.m. CBC, BMP (2) Alcohol use: Plan: Patient reports that she drinks 3-4 drinks/day; white wine She reports she has drank daily for an extended period of time Last alcoholic drink was on the night of 03/27; she is unsure how much she drank that night AWSS protocol with Lorazepam Continuous telemetry monitoring Alcohol level pending Patient denies hx of alcohol withdrawal or seizures (3) Anticoagulant long-term use: Plan: On warfarin; patient takes in the evening INR on arrival was 3.5; hold evening dose 03/27 Resume normal warfarin schedule on 03/28 Trend a.m. PT/INR (4) Elevated troponin: Plan: Elevated troponin at 31.2, repeat pending EKG showed sinus rhythm with frequent PVCs at 97 bpm Continuous telemetry monitoring Clinically, patient denies chest pain (5) Hyperlipidemia: Plan: Continue rosuvastatin (6) Hypothyroidism: Plan: Continue levothyroxine (7) Hypertension: Plan: BP 138/83 on arrival Continue carvedilol (8) Osteoporosis: Plan: Continue vitamin D3 (9) Compression fracture of L1 vertebra: Plan: As above Plan [facility] Full code Regular diet VTE PPx: On warfarin History of Present Illness Chief Complaint: Fall Primary Care Provider: Anant Mills MD Karyn is a 77-year-old female with PMH of HTN, hypothyroidism, HLD, and osteoporosis. Patient presented with bilateral lower back pain, and left shoulder pain after she tripped and fell (on warfarin) last night on 03/26. She was drinking alcohol when the fall occurred. She reports that she hit her head, left shoulder, and lower back in the fall. She does not remember how much alcohol she had, and only barely remembers falling she hit her head. She endorses 8/10 back pain on arrival that is transverse across the lower back. No radiation. She describes it as a dull, achy, constant pain. Worse with movement. Better lying down. The pain in her low back is more pronounced on the left side. She took 1 tablet of acetaminophen this morning, which he reports helped the pain. She reports that she also took her daily aspirin, carvedilol, and spironolactone this morning. She last took warfarin the evening of 03/26. She had a low-grade 99.6 F fever at home this morning. Patient has a mild temperature 37.9 C, vitals otherwise stable ROS: IVF Patient endorses low-grade fever, and new onset back pain (new after last night). Patient denies chills, nightsweats, MEHTA, dizziness, lightheadedness, CP, SOB, pleuritic CP, abdominal pain, N/V/D, urinary s/s, burning with urination, or numbness/tingling in the legs. Please see Dr. Stanton's attestation for any changes to treatment plan. Allergies Allergy/AdvReac Type Severity Reaction Status Date / Time Sulfa (Sulfonamide Allergy Severe Hives; Verified 03/27/23 18:08 Antibiotics) Itching adhesive tape Allergy Intermediate SKIN Verified 03/27/23 18:08 IRRITATION Home Medications Medication Instructions Recorded Confirmed Type aspirin 81 mg tablet,delayed 81 mg PO DAILY 12/02/18 03/27/23 History release fexofenadine 180 mg tablet 180 mg PO DAILY 12/02/18 03/27/23 History magnesium oxide 400 mg (241.3 mg 400 mg PO DAILY #30 tabs 12/02/18 03/27/23 History magnesium) tablet ascorbic acid (vitamin C) 1,000 mg 1 gm PO DAILY 12/18/18 03/27/23 History tablet calcitriol 3 mcg/gram topical 1 appln topical UD PRN NEEDED 12/18/18 03/27/23 History ointment PER PT calcium carbonate 600 mg calcium 600 mg PO BID 12/18/18 03/27/23 History (1,500 mg) tablet clobetasol 0.05 % topical ointment 1 appln topical BID PRN rash #1 g 12/18/18 03/27/23 History cannabidiol 100 mg/mL oral solution 20 mg PO DAILY 12/23/18 03/27/23 History bromfenac 0.07 % eye drops 1 drp ophthalmic (eye) DAILY 03/09/21 03/27/23 History cholecalciferol (vitamin D3) 50 1,000 unit PO DAILY 03/09/21 03/27/23 History mcg (2,000 unit) capsule carboxymethylcellulose 0.5 1 - 2 drp ophthalmic (eye) DAILY 09/22/21 03/27/23 History %-glycerin 0.9 % eye drops PRN Dry Eyes propylene glycol 0.6 % eye drops 1 - 2 drp ophthalmic (eye) DAILY 09/22/21 03/27/23 History PRN dry eye(s) mecobalamin (vitamin B12) 1,000 1,000 mcg PO DAILY #30 tabs 11/10/21 03/27/23 Rx mcg chewable tablet acetaminophen 500 mg tablet 500 mg PO DIRECTED PRN 11/13/21 03/27/23 History (Tylenol Extra Strength) FEVER/PAIN vit C 250 mg-vit E 90 mg-zinc 40 1 tab PO BID 08/13/22 03/27/23 History mg-copper 1 [id number] capsule (PreserVision AREDS-2) spironolactone 25 mg tablet 25 mg PO DAILY #90 tabs 10/02/22 03/27/23 Rx estradiol 0.01% (0.1 mg/gram) See Rx Instructions .Route 01/14/23 03/27/23 Rx vaginal cream .COMPLEX #42.5 grams levothyroxine 88 mcg tablet 88 mcg PO HS 01/15/23 03/27/23 History rosuvastatin 5 mg tablet (Crestor) 5 mg PO Q2D #90 tabs 01/15/23 03/27/23 Rx carvedilol 12.5 mg tablet 12.5 mg PO BID #180 tabs 02/03/23 03/27/23 Rx [id number] antigen-AS01E 0.5 ml IM DIRECTED 03/27/23 03/27/23 History adjuvant(PF) 120 mcg/0.5 mL IM suspension, kit amoxicillin 500 mg capsule 2,000 mg PO DIRECTED PRN PRIOR 03/27/23 03/27/23 History TO DENTAL APPOINTMENTS multivitamin (Daily Multi-Vitamin 1 tab PO DAILY 03/27/23 03/27/23 History tablet) warfarin 1 mg tablet 2 mg PO 4XWK 03/27/23 03/27/23 History warfarin 3 mg tablet 3 mg PO 3XWK 03/27/23 03/27/23 History Past Med/Surg History Medical History (Updated 03/27/23 @ 22:16 by Saurabh Brunner PA-C) Alcohol use Facial abrasion Arthritis Pulmonary embolism Vulvar atrophy Tubulovillous adenoma of colon Osteopenia Methylenetetrahydrofolate reductase deficiency Lichen sclerosus et atrophicus Hypothyroidism Hypomagnesemia Hypertension Hyperglycemia High triglycerides Diverticulosis of colon Anticoagulant long-term use Surgical History H/O colonoscopy 12/14/[address] Asad Baker Cataract extraction status, left eye 11/01/[address] Juan Luis Jefferson Cataract extraction status of right eye 12/06/[address] Juan Luis Jefferson History of total abdominal hysterectomy and bilateral salpingo-oophorectomy History of tonsillectomy and adenoidectomy S/P right knee arthroscopy 07/06/[address] Jh Kearns Status post mechanical aortic valve replacement (2010) Family History Mother Diverticulitis Stroke Father Hypertension Stroke Grandfather (Paternal) Myocardial infarction Grandmother (Paternal) Diabetes Grandmother (Maternal) Stroke Denies family history of Ovarian cancer Prostate cancer Breast cancer Lung cancer Colorectal cancer Social History Smoking Status: Former smoker Tobacco Type: Cigarettes Age Started Using Tobacco: 22; Age Quit Using Tobacco: 34; packs per day: 1.5; Cigarettes Per Day: 30; Second Hand Exposure: No; Do You Dip or Chew Tobacco: No; Hx Alcohol Use: Yes Alcohol type: wine Alcohol Intake Frequency: 4 or More x per/Week Alcohol Intake Frequency Comment: 3-4 drinks per day Hx Substance Use: No Preferred Language: Indonesian Visual Impairment: Limited Hearing Ability: Normal Beliefs That Will Affect Care: None marital status: Current Living Situation: Spouse current occupational status: retired How many Children do You have: 1 Feels Safe at Home: Yes Childhood Exposure to Second-Hand Smoke: Yes caffeine: Yes Dental Care, Regularly: Yes Physical Activity Frequency: 3-4 Times per Week Physical Activity Frequency Comment: Walking, aerobic conditioning, strength training, stretching/yoga/pilates Seatbelt Use: always Sunscreen Use: Yes Assistive Devices: Glasses Review of Systems Review of Systems: See HPI above Physical Exam Physical Exam: General: no acute distress; anxious; non-toxic appearing; well-nourished; cooperative HEENT: Dried blood on posterior left scalp, no superficial lesions appreciated; no scleral icterus; PERRLA w/ EOMs intact; moist mucus membrane; vision and hear ing grossly intact Neck: supple; no lymphadenopathy; trachea midline Skin: warm, dry without signs of tenting; no cyanosis; no rashes, bruising, lesions, or erythema noted CV: chest wall NTP; RRR; S1/S2 normal; no murmurs/rubs/gallops; pulses intact and symmetric at radial, DP, and PT Lungs: no acute respiratory distress; symmetrical chest wall expansion; clear breath sounds across all lung cesar w/o adventitious sounds; no wheezing ABD: Soft, NTP; BS present; no rebound/guarding; no distention; Back: Mild abrasion on the upper left scapula; no bruising on the lower back; lumbar back is mildly TTP on both sides MSK: no tics or fasciculations; no edema noted in the LEs b/l; 5/5 strength in the LEs B/L; full active ROM of LEs; patient demonstrates ability to wiggle toes Neuro: A&Ox3; normal mood and affect; fluent speech; no focal deficits; sensation grossly intact in the LEs B/L Results & Data Results & Data Vital Signs (Past 12 Hours) Vital Signs Temp Pulse Pulse Resp BP BP Pulse Ox 03/27/23 19:00 80 18 138/83 92 03/27/23 19:00 76 16 142/80 H 93 03/27/23 17:55 78 03/27/23 17:49 37.9 C H 16 145/97 H 95 03/27/23 13:33 36.6 C 95 H 20 164/94 H 94 O2 Del Method 03/27/23 19:00 Room Air 03/27/23 19:00 Room Air 03/27/23 17:55 03/27/23 17:49 Room Air 03/27/23 13:33 Room Air Laboratory Results Abnormal lab results 03/27/23 03/27/23 Range/Units 13:45 19:24 MCV 100.7 H (80.0-100.0) fL RDW Std Deviation 55.1 H (36.4-46.3) fL RDW Coeff of Bernie 14.9 H (11.5-14.5) % MPV 9.2 L (9.4-12.4) fL Neut # (Auto) 7.15 H (1.40-6.50) K/uL Lymph # (Auto) 1.16 L (1.20-3.40) K/uL Casey # (Auto) 1.04 H (0.11-0.59) K/uL PT 35.6 H (9.0-12.0) Seconds INR 3.5 H (0.9-1.1) APTT 45.8 H* (21.0-31.0) Seconds BUN/Creatinine Ratio 23.0 H (10-20) Glucose 112 H (70-99(Fasting)) mg/dl Troponin I High Sens 31.2 H (0-14) pg/ml Urine pH 8.0 H (4.5-7.5) Ur Specific Bouton > 1.045 H (1.000-1.030) Diagnostic Findings Humerus X-Ray 03/27/23 13:38 XR humerus LT 2V CLINICAL HISTORY: Upper arm trauma TECHNIQUE: 2 radiographic views of the left humerus were obtained. Comparison: None available at the time of this dictation. FINDINGS: There is no evidence for fracture, subluxation or dislocation. The visualized portion of the shoulder and elbow joints are unremarkable. The overlying soft tissues are unremarkable. IMPRESSION: No acute osseous injury ACT 112: Negative or not required by law. Electronically signed by: Flo Medina M.D. 03/27/2023 3:45 PM Chest X-Ray 03/27/23 14:59 SINGLE VIEW CHEST CLINICAL HISTORY: Fall. FINDINGS: A PA chest radiograph is compared to study dated 07/11/2016. Correlation is made with chest CT dated 11/17/2008. The patient is status post midline sternotomy and cardiac valve surgery. The heart is enlarged noting atherosclerotic calcification of the thoracic ureter. The pulmonary vasculature is noncongested. Chronic interstitial thickening is similar previous. Scarring/atelectasis is noted at the lung bases. The lungs and pleural spaces are otherwise clear. No pneumothorax is seen. The skeletal structures are osteopenic. The bony thorax is grossly intact. IMPRESSION: Cardiomegaly with no active disease in the chest. ACT 112: Negative or not required by law. Electronically signed by: Jaspreet West M.D. 03/27/2023 3:[address] 03/27/23 14:59 CT SCAN OF THE BRAIN WITHOUT IV CONTRAST CLINICAL HISTORY: Fall. Head injury. COMPARISON STUDY: CT of the brain dated 10/28/2021. TECHNIQUE: Unenhanced axial CT scan of the brain is performed from the vertex to the skull base. A dose lowering technique was utilized adhering to the principles of ALARA. FINDINGS: Brain parenchyma: There is age-related involutional change noting mild subcortical and periventricular microangiopathic disease. There is no hemorrhage, mass effect, or evidence of acute territorial ischemia by CT criteria. Franco-white matter differentiation is preserved. No extra-axial fluid collection is seen. Ventricles, sulci, cisterns: Prominent secondary to involutional change. Intracranial vasculature: There is atherosclerotic calcification of the cavernous carotid arteries. Calvarium: The skeletal structures are osteopenic. No depressed calvarial fracture is seen. Soft tissues: There is minimal posterior scalp contusion. Sinuses and mastoids: The visualized paranasal sinuses are clear. The mastoid air cells are well pneumatized. Orbits: The bony orbits are grossly intact. There are bilateral ocular lens implants. IMPRESSION: There is no hemorrhage, mass effect, or evidence of acute territorial ischemia by CT criteria. ACT 112: Negative or not required by law. Electronically signed by: Jaspreet West M.D. 03/27/2023 5:[address] 03/27/23 14:59 CT SCAN OF THE ABDOMEN AND PELVIS WITH IV CONTRAST; CT SCAN OF THE LUMBAR SPINE WITH IV CONTRAST CLINICAL HISTORY: Fall. Low back pain. COMPARISON STUDY: Abdominal CT dated 03/19/2023. Abdominal ultrasound dated 12/19/2021. TECHNIQUE: Following the IV administration of 89 cc of Optiray 320, CT scan of the abdomen and pelvis is performed from the lung bases to the proximal femora. Additionally, CT scan of the lumbar spine is performed from the lower thoracic spine to the sacrum. Images for both examinations are reviewed in the axial, sagittal, and coronal planes. IV contrast was administered without complication. A dose lowering technique was utilized adhering to the principles of ALARA. CT DOSE: 1706.5 mGy.cm FINDINGS: Lung bases: The patient is status post midline sternotomy and aortic valve surgery. The heart is enlarged and without pericardial effusion. The coronary arteries are densely calcified. The lung bases are clear noting bibasilar scarring/atelectasis. A small hiatal hernia is noted. Liver: The contrast-enhanced liver is normal in size, contour, and attenuation. There is no intrahepatic biliary ductal dilatation. The hepatic veins and portal veins are patent. Gallbladder: There are small calcified gallstones with no CT evidence of acute c holecystitis. Irregular wall thickening of the fundal region is noted with possible postcontrast enhancement. Spleen: Normal in size and attenuation. Pancreas: Unremarkable. Adrenal glands: Unremarkable. Kidneys: The contrast enhanced kidneys demonstrate mild cortical atrophy and are without hydronephrosis. The kidneys enhance symmetrically. There is a punctate nonobstructing calculus on the left. Small renal cysts measure up to 14 mm. Additional subcentimeter cortical hypodensities also likely represent cysts but are too small for definitive characterization. Abdominal vasculature: The abdominal aorta is normal in course and caliber noting moderate to advanced atherosclerotic calcification. Bowel: There is moderate colonic diverticulosis without CT evidence of acute diverticulitis. No bowel obstruction is seen. The appendix is well-visualized and normal. Peritoneum: There is no intraperitoneal free air or abdominal ascites. Lymphadenopathy: None. Pelvic viscera: The bladder is normal as visualized. The uterus is surgically absent. No adnexal lesion is seen. Skeletal structures: The skeletal structures are osteopenic. See below for dedicated discussion of the lumbar spine. The bony pelvis and proximal femora appear intact. There is likely chronic deformity of S4. No lytic or blastic lesions are seen. There are chronic/healed right-sided rib fractures. LUMBAR SPINE: There is an acute superior endplate compression fracture of L1 with minimal loss of height. Mild paravertebral edema is noted. No retropulsed fragments are seen. No additional acute fracture is identified involving the lumbar spine. Vertebral body height is otherwise maintained. Alignment is preserved. Tiny anterior osteophytes are seen throughout. The transverse and spinous processes are intact. There is no spondylolysis. There is severe disc space narrowing at L5-S1 with associated endplate sclerosis. Mild disc space narrowing seen at the remaining lumbar levels. A posterior disc ostomy complexes noted at L5-S1. There is no CT evidence of large disc herniation or high-grade central canal stenosis. Mild facet arthropathy seen in the lower lumbar region. There is fatty atrophy of the paraspinous musculature. IMPRESSION: 1. There is no evidence of solid organ injury in the abdomen or pelvis. 2. Acute superior endplate compression fracture of L1 with minimal loss of he ight. No retropulsed fragments are seen. 3. Cholelithiasis without CT evidence of acute cholecystitis. 4. Abnormal appearance of the gallbladder wall in the fundal region is similar to previous. This may be related to stones, sludge, and adenomyomatosis. An underlying mass lesion would be impossible to exclude. This was also shown to be abnormal by ultrasound on 12/19/2021. Nonemergent surgical follow-up is advised. 5. Cardiomegaly. 6. Moderate colonic diverticulosis without CT evidence of acute diverticulitis. 7. Left-sided nephrolithiasis. 8. Additional findings as above. ACT 112: Negative or not required by law. Electronically signed by: Jaspreet West M.D. 03/27/2023 7:01 PM Abdomen/Pelvis CT 03/27/23 15:01 CT SCAN OF THE ABDOMEN AND PELVIS WITH IV CONTRAST; CT SCAN OF THE LUMBAR SPINE WITH IV CONTRAST CLINICAL HISTORY: Fall. Low back pain. COMPARISON STUDY: Abdominal CT dated 03/19/2023. Abdominal ultrasound dated 12/19/2021. TECHNIQUE: Following the IV administration of 89 cc of Optiray 320, CT scan of the abdomen and pelvis is performed from the lung bases to the proximal femora. Additionally, CT scan of the lumbar spine is performed from the lower thoracic spine to the sacrum. Images for both examinations are reviewed in the axial, sagittal, and coronal planes. IV contrast was administered without complication. A dose lowering technique was utilized adhering to the principles of ALARA. CT DOSE: 1706.5 mGy.cm FINDINGS: Lung bases: The patient is status post midline sternotomy and aortic valve surgery. The heart is enlarged and without pericardial effusion. The coronary arteries are densely calcified. The lung bases are clear noting bibasilar scarring/atelectasis. A small hiatal hernia is noted. Liver: The contrast-enhanced liver is normal in size, contour, and attenuation. There is no intrahepatic biliary ductal dilatation. The hepatic veins and portal veins are patent. Gallbladder: There are small calcified gallstones with no CT evidence of acute cholecystitis. Irregular wall thickening of the fundal region is noted with possible postcontrast enhancement. Spleen: Normal in size and attenuation. Pancreas: Unremarkable. Adrenal glands: Unremarkable. Kidneys: The contrast enhanced kidneys demonstrate mild cortical atrophy and are without hydronephrosis. The kidneys enhance symmetrically. There is a punctate nonobstructing calculus on the left. Small renal cysts measure up to 14 mm. Additional subcentimeter cortical hypodensities also likely represent cysts but are too small for definitive characterization. Abdominal vasculature: The abdominal aorta is normal in course and caliber noting moderate to advanced atherosclerotic calcification. Bowel: There is moderate colonic diverticulosis without CT evidence of acute diverticulitis. No bowel obstruction is seen. The appendix is well-visualized and normal. Peritoneum: There is no intraperitoneal free air or abdominal ascites. Lymphadenopathy: None. Pelvic viscera: The bladder is normal as visualized. The uterus is surgically absent. No adnexal lesion is seen. Skeletal structures: The skeletal structures are osteopenic. See below for dedicated discussion of the lumbar spine. The bony pelvis and proximal femora appear intact. There is likely chronic deformity of S4. No lytic or blastic lesions are seen. There are chronic/healed right-sided rib fractures. LUMBAR SPINE: There is an acute superior endplate compression fracture of L1 with minimal loss of height. Mild paravertebral edema is noted. No retropulsed fragments are seen. No additional acute fracture is identified involving the lumbar spine. Vertebral body height is otherwise maintained. Alignment is preserved. Tiny anterior osteophytes are seen throughout. The transverse and spinous processes are intact. There is no spondylolysis. There is severe disc space narrowing at L5-S1 with associated endplate sclerosis. Mild disc space n arrowing seen at the remaining lumbar levels. A posterior disc ostomy complexes noted at L5-S1. There is no CT evidence of large disc herniation or high-grade central canal stenosis. Mild facet arthropathy seen in the lower lumbar region. There is fatty atrophy of the paraspinous musculature. IMPRESSION: 1. There is no evidence of solid organ injury in the abdomen or pelvis. 2. Acute superior endplate compression fracture of L1 with minimal loss of height. No retropulsed fragments are seen. 3. Cholelithiasis without CT evidence of acute cholecystitis. 4. Abnormal appearance of the gallbladder wall in the fundal region is similar to previous. This may be related to stones, sludge, and adenomyomatosis. An underlying mass lesion would be impossible to exclude. This was also shown to be abnormal by ultrasound on 12/19/2021. Nonemergent surgical follow-up is advised. 5. Cardiomegaly. 6. Moderate colonic diverticulosis without CT evidence of acute diverticulitis. 7. Left-sided nephrolithiasis. 8. Additional findings as above. ACT 112: Negative or not required by law. Electronically signed by: Jaspreet West M.D. 03/27/2023 7:01 PM Code Status & VTE Plan Code Status Full code VTE Prophylaxis Plan VTE Prophylaxis will be ordered: Yes Supervising Physician Co-Signing Physician Notes Attending addendum: I have physically seen this patient, have supervised the PRAMOD's activities, and agree with the H&P unless as otherwise noted. Assessment and Plan: Status post fall- Mechanical fall that occurred while intoxicated 03/26 evening Main complaint is low back pain CT head without contrast negative Left humerus x-ray negative Chest x-ray negative CT abdomen and pelvis with stable abnormal appearance of gallbladder compared to ultrasound from 12/19/2021 Elevated troponin/mechanical AVR/hypertension- Troponin 31.2 on admission, with follow-up 38.1, then 34.0. The patient will be admitted to telemetry for serial cardiac enzymes, serial EKG's, cardiac rhythm monitoring and a 2-D echocardiogram with Dopplers. Likely type II supply/demand mismatch L1 superior endplate compression fracture/L5-S1 severe degenerative disc disease- Likely occurred during fall No sign of hematoma on CT Acetaminophen 650 mg by mouth every 6 hours as needed for mild pain or fever Will need to follow-up with orthopedic spine surgery, no call availability today. Would order MRI of the lumbar sacral spine, if symptoms were to intensify Dilaudid IV as noted Patient cannot wear Lidoderm patches due to issues with adhesive causing skin irritation in the past PT/OT consult Orthopedic spine surgery consult if pain is persistent Alcohol use disorder- Patient reports drinking 3 to 4 glasses of white wine daily Placed on AWSS protocol with lorazepam Add alcohol level to existing laboratories Start on thiamine 100 mg daily and folic acid 1 mg daily History of pulmonary embolism- Long-term use of warfarin INR supratherapeutic at 3.5 Hold per protocol until around 2.5 No sign of bleeding on any of the imaging studies PG Care Time/CCT Total # of Minutes Spent Total Time Spent with Patient: Total time spent is greater than 50% in coordination of care (as documented) at patient's floor/unit and/or counseling patient: [place] [address] INT INP/OBS CARE MIN Patient Type Established Medical Decision Making Moderate Complexity Diagnoses Fall W19.XXXA Encounter type: initial encounter Alcohol use Z78.9 Anticoagulant long-term use Z79.01 Elevated troponin R79.89 Hyperlipidemia E78.5 Hypothyroidism E03.9 Hypertension I10 Osteoporosis M81.0 Compression fracture of L1 vertebra S32.010A (1) Fall Encounter type: initial encounter Qualified Code(s): W19.XXXA - Unspecified fall, initial encounter
[2023-03-27] MEDS ORDERED: ACETAMINOPHEN 325 MG TAB PO STA (21:19)
[2023-03-27 22:02] LABS: Influenza A virus by PCR Negative (Neg); Influenza B virus by PCR Negative (Neg); RSV by PCR Negative (Neg); SARS CoV2 RNA(COVID-19) Ceph NEGATIVE (Negative)
[2023-03-27 22:32] LABS: Magnesium 1.8 mg/dl (1.7-2.4)
[2023-03-27 22:38] LABS: Troponin I High Sensitivity 38.1 pg/ml (0-14)
[2023-03-27] MEDS ORDERED: LEVOTHYROXINE SODIUM 88 MCG TABLET PO SCH (23:19)
[2023-03-27] MEDS ORDERED: LORazepam 3 MG in SYRINGE 1.5 ML IV PRN (23:19)
[2023-03-27] MEDS ORDERED: CLOBETASOL PROPIONATE 0.05% OINT 15 GM TUBE EXT PRN (23:19)
[2023-03-27] MEDS ORDERED: LORazepam 1 MG in SYRINGE 0.5 ML IV PRN (23:19)
[2023-03-27] MEDS ORDERED: Ativan IV Alcohol Withdrawal--Active Protocol IV PRN (23:19)
[2023-03-27] MEDS ORDERED: LORazepam 2 MG in SYRINGE 1 ML IV PRN (23:19)
[2023-03-27] MEDS ORDERED: HYDROmorphone INJ 0.5 MG/0.5 ML SYR IV PRN ×2 (23:19)
[2023-03-28] MEDS ORDERED: DICLOFENAC SOD 1% GEL 100 GM TUBE EXT PRN (00:15)
[2023-03-28] MEDS: carvediloL 12.5 MG TAB PO SCH ×2 (00:52→09:56)
[2023-03-28] MEDS: ACETAMINOPHEN 325 MG TAB PO PRN ×3 (04:18→15:07)
[2023-03-28 04:49] LABS: Basophils # (auto) 0.02 K/uL (0.00-0.20); Basophils % (auto) 0.3 %; Eosinophils # (auto) 0.08 K/uL (0.00-0.50); Eosinophils % (auto) 1.1 %; Hematocrit (blood only) 37.6 % (37.0-47.0); Hemoglobin 12.4 g/dl (12.0-16.0); Immature Granulocytes # (auto) 0.03 K/uL (0.01-0.20); Immature Granulocytes % (auto) 0.4 %; Lymphocytes # (auto) 0.88 K/uL (1.20-3.40); Lymphocytes % (auto) 12.1 %; Mean Corpuscular Hemoglobin 33.8 pg (25.0-34.0); Mean Corpuscular Volume 102.5 fL (80.0-100.0); Mean Platelet Volume 9.4 fL (9.4-12.4); Monocytes # (auto) 0.72 K/uL (0.11-0.59); Monocytes % (auto) 9.9 %; Neutrophils # (auto) 5.56 K/uL (1.40-6.50); Neutrophils % (auto) 76.2 %; Platelet Count 212 K/uL (130-400); Red Blood Count 3.67 M/uL (4.20-5.40); White Blood Count 7.29 K/ul (4.8-10.8)
[2023-03-28 05:00] LABS: BUN Creatinine Ratio 36.6 (10-20); Calcium 8.4 mg/dl (8.6-10.3); Creatinine Clr Calc Pharmacy 115.3 ml/min; Est GFR (African American) 117.1 ml/min; Est GFR (Non-African American) 101.1 ml/min; Potassium 3.5 mmol/L (3.5-5.1)
[2023-03-28 05:17] LABS: INR 2.5 (0.9-1.1); Prothrombin Time 25.5 Seconds (9.0-12.0)
[2023-03-28] MEDS ORDERED: LIDOCAINE 5% 1 PATCH TD SCH (09:00)
[2023-03-28] MEDS ORDERED: SPIRONOLACTONE 25 MG TAB PO SCH (09:00)
[2023-03-28] MEDS ORDERED: CHOLECALCIFEROL 1,000 UNITS 25 MCG TAB PO SCH (09:00)
[2023-03-28] MEDS ORDERED: THIAMINE HCL 100 MG TAB PO SCH (09:00)
[2023-03-28] MEDS ORDERED: MAGNESIUM OXIDE 400 MG TAB PO SCH (09:00)
[2023-03-28] MEDS ORDERED: FEXOFENADINE HCL 180 MG TAB PO SCH (09:00)
[2023-03-28] MEDS ORDERED: FOLIC ACID 1 MG TAB PO SCH (09:00)
[2023-03-28] MEDS ORDERED: ROSUVASTATIN CALCIUM 5 MG TAB PO SCH (09:00)
[2023-03-28] MEDS ORDERED: ASPIRIN 81 MG ECTAB PO SCH (09:00)
--- NOTE | 2023-03-28 10:07 | Hospitalist Progress Note ---
Date of Service March 28, 2023 Assessment & Plan (1) Fall: Plan: Fall while intoxicated on the night of 03/26 Patient on Coumadin 8/10 lower back pain on arrival; worse on left side Lumbar spine CT revealed acute superior endplate compression fracture of L1 Head CT NAF Left humerus x-ray NAF Mild fever at 37.9 C; no leukocytosis CXR NAF Abdomen/pelvis CT revealed no solid organ injury; abnormal appearance of the gallbladder, but similar to US on 12/19/21 Electrolytes WNL Acetaminophen 650 mg p.o. q6h as needed for pain 1-3 Dilaudid 0.25-0.50 mg IV q2h as needed for breakthrough pain Avoid Lidoderm patch as patient has had adhesive skin irritation in the past Can use Voltaren gel topically PT/OT consult Consider ortho-spine consult if pain is not improved with medicine A.m. CBC, BMP (2) Alcohol use: Plan: Patient reports that she drinks 3-4 drinks/day; white wine She reports she has drank daily for an extended period of time Last alcoholic drink was on the night of 03/27; she is unsure how much she drank that night AWSS protocol with Lorazepam Continuous telemetry monitoring Alcohol level pending Patient denies hx of alcohol withdrawal or seizures (3) Anticoagulant long-term use: Plan: On warfarin; patient takes in the evening INR on arrival was 3.5; hold evening dose 03/27 Resume normal warfarin schedule on 03/28 Trend a.m. PT/INR (4) Elevated troponin: Plan: Elevated troponin at 31.2, repeat pending EKG showed sinus rhythm with frequent PVCs at 97 bpm Continuous telemetry monitoring Clinically, patient denies chest pain (5) Hyperlipidemia: Plan: Continue rosuvastatin (6) Hypothyroidism: Plan: Continue levothyroxine (7) Hypertension: Plan: BP 138/83 on arrival Continue carvedilol (8) Osteoporosis: Plan: Continue vitamin D3 (9) Compression fracture of L1 vertebra: Plan: As above Plan Disposition: Admit to [facility] telemetry Full code Regular diet VTE PPx: On warfarin Admission and Anticipated Discharge Date Admission Date: March 27, 2023 Results & Data Results & Data Vital Signs (Past 12 Hours) Vital Signs Temp Pulse Pulse Resp BP BP Pulse Ox 03/28/23 08:21 36.8 C 77 18 165/93 H 94 03/28/23 07:40 60 03/28/23 07:03 81 19 122/70 97 03/28/23 05:00 96 H 21 94 03/28/23 04:30 86 23 95 03/28/23 04:17 88 L 03/28/23 03:30 79 22 03/28/23 03:00 74 34 H 92 03/28/23 02:30 88 20 94 03/28/23 02:00 85 20 94 03/28/23 01:30 90 23 95 03/28/23 01:00 81 27 H 96 03/28/23 01:00 36.8 C 03/28/23 00:51 91 H 28 H 92 03/28/23 00:51 165/91 H 03/28/23 00:30 89 21 03/28/23 00:00 88 21 03/28/23 00:00 86 03/27/23 23:30 84 19 03/27/23 23:00 94 H 19 97 03/27/23 23:00 170/134 H 03/27/23 22:58 86 L 03/27/23 22:51 144/89 H 03/27/23 22:51 91 H 20 86 L 03/27/23 22:30 81 27 H 90 03/27/23 22:14 91 H O2 Del Method O2 Flow Rate 03/28/23 08:21 Room Air 03/28/23 07:40 03/28/23 07:03 Nasal Cannula 3 03/28/23 05:00 03/28/23 04:30 03/28/23 04:17 03/28/23 03:30 03/28/23 03:00 03/28/23 02:30 03/28/23 02:00 03/28/23 01:30 03/28/23 01:00 03/28/23 01:00 03/28/23 00:51 Nasal Cannula 2 03/28/23 00:51 Nasal Cannula 2 03/28/23 00:30 Nasal Cannula 2 03/28/23 00:00 Nasal Cannula 2 03/28/23 00:00 03/27/23 23:30 Nasal Cannula 2 03/27/23 23:00 Nasal Cannula 2 03/27/23 23:00 03/27/23 22:58 Nasal Cannula 0 03/27/23 22:51 03/27/23 22:51 03/27/23 22:30 03/27/23 22:14 PG Care Time/CCT Total # of Minutes Spent Total Time Spent with Patient: Total time spent is greater than 50% in coordination of care (as documented) at patient's floor/unit and/or counseling patient: Coding Diagnoses Fall W19.XXXA Encounter type: initial encounter Alcohol use Z78.9 Anticoagulant long-term use Z79.01 Elevated troponin R79.89 Hyperlipidemia E78.5 Hypothyroidism E03.9 Hypertension I10 Osteoporosis M81.0 Compression fracture of L1 vertebra S32.010A (1) Fall Encounter type: initial encounter Qualified Code(s): W19.XXXA - Unspecified fall, initial encounter
--- NOTE | 2023-03-28 12:52 | Electrocardiogram Report ---
Test Reason : Blood Pressure : / mmHG Vent. Rate : 097 BPM Atrial Rate : 097 BPM P-R Int : 160 ms QRS Dur : 086 ms QT Int : 356 ms P-R-T Axes : 032 049 043 degrees QTc Int : 452 ms Sinus rhythm with frequent Premature ventricular complexes Poor R wave progression, consider anterior UT vs. lead placement vs. LVH Abnormal ECG When compared with ECG of 09-JUL-2016 09:10, Premature ventricular complexes are now Present Premature atrial complexes are no longer Present Vent. rate has increased BY 36 BPM Minimal criteria for Anterior infarct are now Present Confirmed by Anant Mobley ([id number]) on 03/28/2023 12:52:07 PM Referred By: REFERRED SELF Confirmed By:Anant Mobley
[2023-03-28] MEDS ORDERED: WARFARIN SOD 2 MG TAB PO SCH (16:00)
[2023-03-29] MEDS ORDERED: WARFARIN SOD 3 MG TAB PO SCH (16:00)
--- NOTE | 2023-04-01 09:35 | Discharge Summary ---
Date of Service March 28 2023 Admission HPI Per Admitting Provider Karyn is a 77-year-old female with PMH of HTN, hypothyroidism, HLD, and osteoporosis. Patient presented with bilateral lower back pain, and left shoulder pain after she tripped and fell (on warfarin) last night on 03/26. She was drinking alcohol when the fall occurred. She reports that she hit her head, left shoulder, and lower back in the fall. She does not remember how much alcohol she had, and only barely remembers falling she hit her head. She endorses 8/10 back pain on arrival that is transverse across the lower back. No radiation. She describes it as a dull, achy, constant pain. Worse with movem ent. Better lying down. The pain in her low back is more pronounced on the left side. She took 1 tablet of acetaminophen this morning, which he reports helped the pain. She reports that she also took her daily aspirin, carvedilol, and spironolactone this morning. She last took warfarin the evening of 03/26. She had a low-grade 99.6 F fever at home this morning. Patient has a mild temperature 37.9 C, vitals otherwise stable ROS: IVF Patient endorses low-grade fever, and new onset back pain (new after last night). Patient denies chills, nightsweats, MEHTA, dizziness, lightheadedness, CP, SOB, pleuritic CP, abdominal pain, N/V/D, urinary s/s, burning with urination, or numbness/tingling in the legs. Please see Dr. Stanton's attestation for any changes to treatment plan. Principal Diagnosis Fall Lumbar compression fracture Multifocal atrial tachycardia Discharge Exam Constitutional WD/WN, vitals as above Respiratory normal respiratory effort, lungs clear to auscultation Cardiovascular RRR, no murmur, no edema Gastrointestinal (Abdomen) normal bowel sounds, soft, nontender, no hepatosplenomegaly Discharge Data Allergies Allergy/AdvReac Type Severity Reaction Status Date / Time Sulfa (Sulfonamide Allergy Severe Hives; Verified 03/27/23 18:08 Antibiotics) Itching adhesive tape Allergy Intermediate SKIN Verified 03/27/23 18:08 IRRITATION Consultations 03/27/23 19:30 ED Decision to Admit Stat Ordered Studies 03/27/23 14:59 CT head/brain wo con Stat CT lumbar spine w con Stat 03/27/23 15:01 CT abd pelvis IV con only Stat Hospital Course (1) Fall: Karyn Torres is a 77 year old female observed at [facility] from March 272022 due to a fall with L1 lumbar compression fracture in the setting of alcohol use. Pain was under control by the following day and she is medically stable for discharge with no radicular symptoms. Continue acetaminophen as needed for pain. Discussed osteoporosis treatment and she will follow up with her PCP to discuss this further. Troponin was minimally elevated and stable suspected to be demand-ischemia in the absence of EKG changes, chest pain or shortness of breath. Suspected multifocal atrial tachycardia on telemetry. Asymptomatic during these times with rates around 100 bpm. Discussed with radial drill press set up operator specification manager and will also send strips to her primary radial drill press set up operator for review. No recommended treatment for this at this time and do not suspect was involved in the reason she fell. No routine medication changes made. (2) Alcohol use: (3) Compression fracture of L1 vertebra: (4) Multifocal atrial tachycardia: Total Time Total Time Spent Total Time Spent (In Minutes): 35 Discharge Plan Discharge Items Patient Disposition: Home - Self-Care Reason For Visit: FALL Discharge Diagnosis: Fall Lumbar compression fracture Activity: Resume your previous activity Non-emergency contact: Primary Care Provider Call non-emergency contact if: you have any medication questions and your symptoms worsen Follow-up/Referrals: Anant Mills MD [Primary Care Provider] - 04/04/23 10:30 am (APPT. WITH CARLOS GOMEZ PA-C) Diet: Regular Addtl Attending Provider Instructions: You were observed at [facility] from March 272022 due to a fall with L1 lumbar compression fracture. This was under control by the following day and you are now stable for discharge. Please take acetaminophen as needed for pain. Recommend follow up with your primary care physician for DEXA scan to assess for osteoporosis if not recently performed. Your troponin (heart enzyme) was minimally elevated and stable. Suspect this was just as a result of your fall since you have no concerning EKG changes, chest pain or shortness of breath to suggest acute coronary syndrome syndrome (heart attack). If you are having any chest pain or shortness of breath on exertion recommend calling your PCP. If any chest pain or shortness of breath at rest recommend returning to the ER. You also had a suspected multifocal atrial tachycardia vs. sinus tachycardia on telemetry. We will send strips of your rhythm abnormality to your radial drill press set up operator to review but given no symptoms at this time and heart rate is only around 100 bpm in this rhythm do not recommend any change in management at this time. Pending Studies at Discharge: No Stand-Alone Forms: [facility], Sm[facility] Cessation Medications and DC Order Prescriptions: Continued spironolactone 25 mg tablet 25 mg PO DAILY Qty: 90 3RF estradiol 0.01 % (0.1 mg/gram) cream See Rx Instructions .ROUTE .COMPLEX Qty: 42.5 1RF Dose Instruction: USE DIRECTED. Rx Instructions: Apply a small pea-sized amount to vulva 2 times per week carvedilol 12.5 mg tablet 12.5 mg PO BID Qty: 180 3RF calcitriol 3 mcg/gram ointment 1 appln topical UD PRN (Reason: NEEDED PER PT) Patient Comments: Apply 1 inch clobetasol 0.05 % ointment 1 appln topical BID PRN (Reason: rash) Qty: 1 Patient Comments: Apply up to twice daily as needed. carboxymethylcellulose-glycern 0.5-0.9 % drops 1 - 2 drp OP DAILY PRN (Reason: Dry Eyes) Patient Comments: instill 1 or 2 drops in the affected eye(s) as needed. aspirin 81 mg tablet,delayed release (DR/EC) 81 mg PO DAILY fexofenadine 180 mg tablet 180 mg PO DAILY magnesium oxide 400 mg (241.3 mg magnesium) tablet 400 mg PO DAILY Qty: 30 ascorbic acid (vitamin C) 1,000 mg tablet 1 gm PO DAILY calcium carbonate 600 mg calcium (1,500 mg) tablet 600 mg PO BID cholecalciferol (vitamin D3) 50 mcg (2,000 unit) capsule 1,000 unit PO DAILY propylene glycol 0.6 % drops 1 - 2 drp OP DAILY PRN (Reason: dry eye(s)) cannabidiol 100 mg/mL solution 20 mg PO DAILY rosuvastatin [Crestor] 5 mg tablet 5 mg PO Q2D Qty: 90 2RF levothyroxine 88 mcg tablet 88 mcg PO HS PreserVision AREDS-2 250-90-40-1 mg capsule 1 tab PO BID acetaminophen [Tylenol Extra Strength] 500 mg Tablet 500 mg PO DIRECTED PRN (Reason: FEVER/PAIN) multivitamin [Daily Multi-Vitamin] Tablet 1 tab PO DAILY amoxicillin 500 mg capsule 2,000 mg PO DIRECTED PRN (Reason: PRIOR TO DENTAL APPOINTMENTS) Rx Instructions: Take 4 caps 30-60 minutes prior to dental appointment warfarin 3 mg tablet 3 mg PO 3XWK Protocol: Dose Management Condition: Saturday (Week One) Dose/Route: 2 mg Instruction: 2 x 1 mg tablets Condition: Saturday Dose/Route: 3 mg Instruction: 1 x 3 mg tablet Condition: Saturday Dose/Route: 2 mg Instruction: 2 x 1 mg tablets Condition: Saturday Dose/Route: 2 mg Instruction: 2 x 1 mg tablets Condition: Dose/Route: 2 mg Instruction: 2 x 1 mg tablets Condition: Saturday Dose/Route: 3 mg Instruction: 1 x 3 mg tablet Condition: Saturday Dose/Route: 3 mg Instruction: 1 x 3 mg tablet Condition: Saturday (Week Two) Dose/Route: 2 mg Instruction: 2 x 1 mg tablets Condition: Saturday Dose/Route: 3 mg Instruction: 1 x 3 mg tablet Condition: Saturday Dose/Route: 2 mg Instruction: 2 x 1 mg tablets Condition: Saturday Dose/Route: 3 mg Instruction: 1 x 3 mg tablet Condition: Dose/Route: 2 mg Instruction: 2 x 1 mg tablets Condition: Saturday Dose/Route: 3 mg Instruction: 1 x 3 mg tablet Condition: Saturday Dose/Route: 2 mg Instruction: 2 x 1 mg tablets Protocol Text: Adjustment Start Date: Saturday03/22/23 INR Value: 1.9 INR Date: 03/22/23 Recheck Date: 03/27/23 Rx Instructions: TAKES SAT, SAT, & SAT EVENINGS, DOSE DEPENDS ON WEEKLY INR'S. warfarin 1 mg tablet 2 mg PO 4XWK Protocol: Dose Management Condition: Saturday (Week One) Dose/Route: 2 mg Instruction: 2 x 1 mg tablets Condition: Saturday Dose/Route: 3 mg Instruction: 1 x 3 mg tablet Condition: Saturday Dose/Route: 2 mg Instruction: 2 x 1 mg tablets Condition: Saturday Dose/Route: 2 mg Instruction: 2 x 1 mg tablets Condition: Dose/Route: 2 mg Instruction: 2 x 1 mg tablets Condition: Saturday Dose/Route: 3 mg Instruction: 1 x 3 mg tablet Condition: Saturday Dose/Route: 3 mg Instruction: 1 x 3 mg tablet Condition: Saturday (Week Two) Dose/Route: 2 mg Instruction: 2 x 1 mg tablets Condition: Saturday Dose/Route: 3 mg Instruction: 1 x 3 mg tablet Condition: Saturday Dose/Route: 2 mg Instruction: 2 x 1 mg tablets Condition: Saturday Dose/Route: 3 mg Instruction: 1 x 3 mg tablet Condition: Dose/Route: 2 mg Instruction: 2 x 1 mg tablets Condition: Saturday Dose/Route: 3 mg Instruction: 1 x 3 mg tablet Condition: Saturday Dose/Route: 2 mg Instruction: 2 x 1 mg tablets Protocol Text: Adjustment Start Date: Saturday03/22/23 INR Value: 1.9 INR Date: 03/22/23 Recheck Date: 03/27/23 Rx Instructions: TAKES SUN, , , & SAT EVENINGS. DOSE DEPENDS ON WEEKLY INR'S. RSVPreF3 antigen-AS01E (PF) 120 mcg/0.5 mL suspension for reconstitution 0.5 ml IM DIRECTED Rx Instructions: Dx. I10, R73.9, E03.9, Z95.2, L40.50 No Action mecobalamin (vitamin B12) 1,000 mcg tablet,chewable 1,000 mcg PO Q2D Qty: 30 0RF Discharge Orders: Discharge Order (Routine); Ordered 03/28/23 Ordered By: Edvin Martinez Admission Data Admit Date/Time: 03/27/23 21:13 Attending Provider: Edvin Martinez Admit Provider: Kranthi Stanton Primary Care Provider: Anant Mills Other Interventions: Discharge Summary Assessment (RN) Last Done: 03/28/23 16:14 Coding Level of Care Code 93757 INP/OBS DISCH >30 MIN Diagnoses Fall W19.XXXA Encounter type: initial encounter Alcohol use Z78.9 Compression fracture of L1 vertebra S32.010A Multifocal atrial tachycardia I47.19
== END 2023-03-28 16:42 | disposition home or self-care (01) ==
LOC: ED 13:23 → EDINP 13:23 → SUATTDRO 21:13 → 2W 03-28 01:17

== ENCOUNTER 2024-11-05 13:16 | Inpatient (IN) ==
--- NOTE | 2024-11-05 13:43 | Emergency Department Note ---
ED Visit Note I was consulted by the Advanced Practice Provider, TEE Aly. I performed a substantive portion of the visit. This includes aspects of: History: Patient is a 78-year-old female presenting with left shoulder injury and facial injury after a fall. Patient reports that her cat ran out in front of her yesterday and she tripped and fell, striking the left side of her body and her face on the ground. Denies loss of consciousness. She is on Coumadin daily. MDM: - Laboratory workup interpreted by myself shows an INR of 1.1. - Xray left shoulder shows any clavicle fracture, per my interpretation. - CT face wo contrast showed mildly displaced left orbital floor fracture and a small amount of orbital fat and portion of the left inferior rectus muscle extending into the defect. Also noted to have a small amount of hemorrhage within the left maxillary sinus. - PRAMOD discussed case with OMFS. He recommended admission to the hospitalist given that she is on Coumadin her INR is only 1.1. He recommends that if patient needs to be anticoagulated, patient should be transition to Lovenox due to potential surgery tomorrow with OMFS. He will evaluate the patient tomorrow. - However, the patient has full range of motion of extraocular movements. No evidence of entrapment on clinical exam. No proptosis. - Patient to be admitted to hospitalist service. .
--- NOTE | 2024-11-05 14:46 | CT Scan Report ---
CT SCAN OF THE BRAIN WITHOUT IV CONTRAST CLINICAL HISTORY: Head injury. COMPARISON STUDY: Head CT April 27, 2024. TECHNIQUE: Unenhanced axial CT scan of the brain was performed from the vertex to the skull base. A dose lowering technique was utilized adhering to the principles of ALARA. FINDINGS: No acute intracranial hemorrhage, midline shift or mass effect is present. Ventricular syst em is stable. Basal cisterns are patent. A small amount of hemorrhage with air-fluid level within the left maxillary sinus is noted. There is a left periorbital contusion. Bilateral proptosis is chronic . There is no retrobulbar hematoma. An acute displaced left orbital floor fracture extending through the infraorbital foramen is better depicted on the facial bone CT. There are no calvarial fractures. IMPRESSION: 1. No acute intracranial findings. 2. No calvarial fractures. 3. Left periorbital contusion. Left globe intact. No retrobulbar hematoma. 4. Acute displaced left orbital floor fracture better depicted on the facial bone CT which will be re ported separately. ACT 112: Negative or not required by law. Electronically signed by: Johan Sparrow M.D. 11/05/2024 2:45 PM
--- NOTE | 2024-11-05 14:47 | CT Scan Report ---
CT cervical spine wo con CT DOSE: 3435 CLINICAL HISTORY: back pain, head injury. COMPARISON: 10/28/2021 TECHNIQUE: Multiple axial CT images of the cervical spine were obtained without contrast. A dose low ering technique was utilized adhering to the principles of ALARA. FINDINGS: There is moderate degenerative change at the mid and lower cervical spine. There is stable grade 1 anterolisthesis of C4 on 5. No cervical spine fracture seen. IMPRESSION: No cervical spine fracture seen. ACT 112: Negative or not required by law. The above report was generated using voice recognition software. It may contain grammatical, syntax o r spelling errors. Electronically signed by: Nilay Marshall M.D. 11/05/2024 2:46 PM
[2024-11-05 14:51] LABS: INR 1.1 (0.9-1.1); Partial Thromboplastin Time 27 Seconds (21-31); Prothrombin Time 12.2 Seconds (9.0-12.0)
--- NOTE | 2024-11-05 14:55 | CT Scan Report ---
CT SCAN OF THE THORACIC SPINE WITHOUT IV CONTRAST CLINICAL HISTORY: Trauma. COMPARISON STUDY: Chest CT dated 11/17/2008. Abdominal CT dated 02/20/2024. TECHNIQUE: CT scan of the thoracic spine is performed from the lower cervical spine to the upper lum bar spine. Images are reviewed in the axial, sagittal, and coronal planes. IV contrast was not admini stered for this examination. A dose lowering technique was utilized adhering to the principles of AL SHARI. CT DOSE: 3435.83 mGy.cm FINDINGS: The skeletal structures are osteopenic. There is no evidence of acute fracture or malalignm ent involving the thoracic spine. A chronic compression of L1 is unchanged from the 02/20/[address] Vertebral body height and alignment are maintained throughout the thoracic spine. There is ky phoscoliosis. Anterior and lateral marginal osteophytes are seen throughout. The transverse and spino us processes appear intact. No lytic or blastic lesion is seen. There is multilevel degenerative disc space narrowing. There is no CT evidence of large disc herniation or high-grade central canal stenos is throughout the thoracic region. Posterior disc osteophyte complexes are noted at T11-T12 and T12-L 1. The imaged posterior ribs appear intact. The paraspinous soft tissues are within normal limits not ing fatty atrophy of the paraspinous musculature. The heart is enlarged. The coronary arteries are de nsely calcified. There is evidence of previous aortic valve surgery. The visualized lung parenchyma a ppears clear noting bibasilar scarring/atelectasis. IMPRESSION: 1. There is no evidence of fracture or malalignment involving the thoracic spine. 2. Osteopenia with degenerative change and kyphoscoliosis as above. ACT 112: Negative or not required by law. Electronically signed by: Jaspreet West M.D. 11/05/2024 2:53 PM
--- NOTE | 2024-11-05 14:57 | CT Scan Report ---
MAXILLOFACIAL CT WITHOUT CONTRAST CLINICAL HISTORY: head/facial injury COMPARISON STUDY: Orbit CT March 30, 2024. TECHNIQUE: A maxillofacial CT was performed without IV contrast. Coronal and sagittal reformats were viewed. Automated exposure control was utilized for the study. A dose lowering technique was utiliz ed adhering to the principles of ALARA. FINDINGS: The left periorbital contusion is noted. The left globe is intact with no retrobulbar hemat stefanie. Bilateral proptosis is chronic. There is an acute displaced left orbital floor fracture. The orb ital floor fracture measures approximately 1.3 cm in transverse dimension and and the fracture is dis placed 5 mm. A small amount of orbital fat extends through the defect. A small portion of the left in ferior rectus muscle also slightly extends through the defect. No additional acute facial fractures a re present. Small amount of hemorrhage within the left maxillary sinus is present. Pterygoid plates a re intact. There are no skull base fractures. Alignment of the temporomandibular joints is anatomic. IMPRESSION: 1. Acute mildly displaced left orbital floor fracture. A small amount of orbital fat and a portion of the left inferior rectus muscle slightly extend through the defect. No additional acute facial fract ures. 2. Associated small amount of hemorrhage within the left maxillary sinus. 3. Left periorbital contusion. Left lobe intact. No retrobulbar hematoma. ACT 112: Negative or not required by law. Electronically signed by: Johan Sparrow M.D. 11/05/2024 2:56 PM
--- NOTE | 2024-11-05 15:02 | CT Scan Report ---
CT SCAN OF THE LUMBAR SPINE WITHOUT IV CONTRAST CLINICAL HISTORY: Fall. Back pain. COMPARISON STUDY: CT lumbar spine dated 11/28/2023 TECHNIQUE: CT scan of the lumbar spine is performed from the lower thoracic spine to sacrum. Images are reviewed in the axial, sagittal, and coronal planes. IV contrast was not administered for this ex amination. A dose lowering technique was utilized adhering to the principles of ALARA. FINDINGS: The skeletal structures are osteopenic. There is no evidence of acute fracture or malalignm ent involving the lumbar spine. There is a mild chronic compression deformity of L1 and a minimal chr onic superior endplate compression deformity of L3 which are unchanged from previous. No retropulsed fragments are seen. Vertebral body height is otherwise maintained throughout the lumbar spine. Alignm ent is preserved. Anterior and lateral marginal osteophytes are seen throughout. The transverse and s pinous processes appear intact. There is no spondylolysis. No lytic or blastic lesion is seen. Mild f acet arthropathy is noted in the lower lumbar region. There is severe disc space narrowing at L5-S1 w ith endplate sclerosis. Only mild disc space narrowing is seen at the remaining lumbar levels. A post erior disc osteophyte complex is noted at L5-S1. There is no CT evidence of high-grade central canal stenosis. Imaged portions of the sacrum and bony pelvis appear intact. The paraspinous soft tissues a re normal as visualized noting fatty atrophy of the paraspinous musculature. There is advanced athero sclerotic calcification of the abdominal aorta which is normal in caliber. No retroperitoneal lymphad enopathy is seen. IMPRESSION: There is no evidence of fracture or malalignment involving the lumbar spine. ACT 112: Negative or not required by law. Electronically signed by: Jaspreet West M.D. 11/05/2024 3:01 PM
--- NOTE | 2024-11-05 15:03 | XRay Report ---
XR ankle LT min 3V routine, XR tibia fibula LT 2V CLINICAL HISTORY: ankle pain COMPARISON: None FINDINGS: There are atherosclerotic calcifications. No fracture or dislocation seen at the left tibi a or fibula or left ankle. IMPRESSION: No fracture seen. ACT 112: Negative or not required by law. Electronically signed by: Nilay Marshall M.D. 11/05/2024 3:02 PM
--- NOTE | 2024-11-05 15:04 | XRay Report ---
XR elbow LT min 3V routine, XR elbow RT min 3V routine CLINICAL HISTORY: fall, elbow COMPARISON: None FINDINGS: No fracture or dislocation seen at either elbow. There are mild degenerative changes bilat erally. IMPRESSION: No fracture seen. ACT 112: Negative or not required by law. Electronically signed by: Nilay Marshall M.D. 11/05/2024 3:03 PM
--- NOTE | 2024-11-05 15:34 | XRay Report ---
XR shoulder LT min 2V routine CLINICAL HISTORY: fall, shoulder pain COMPARISON: 03/27/2023 FINDINGS: There is an acute mildly displaced fracture at the distal clavicle. No other fracture or d islocation seen at the left shoulder. There are mild degenerative changes. IMPRESSION: Acute fracture distally at the left clavicle. ACT 112: Negative or not required by law. Electronically signed by: Nilay Marshall M.D. 11/05/2024 3:33 PM
--- NOTE | 2024-11-05 15:35 | XRay Report ---
XR clavicle 2 view LT CLINICAL HISTORY: fall, clavicular pain COMPARISON: None FINDINGS: There is an acute mildly displaced fracture distally at the left clavicle. IMPRESSION: Acute fracture distally at the left clavicle. ACT 112: Negative or not required by law. Electronically signed by: Nilay Marshall M.D. 11/05/2024 3:33 PM
[2024-11-05] MEDS ORDERED: ONDANSETRON INJ 2 MG/ML 2 ML VIAL IV PRN (17:15)
--- NOTE | 2024-11-05 18:06 | History & Physical Report ---
Date of Service November 05, 2024 Assessment & Plan (1) Left orbit fracture: Plan: -s/p fall - CT showing mildly displaced left orbital floor fracture and a small amount of orbital fat and portion of the left inferior rectus muscle extending into the defect. Also noted to have a small amount of hemorrhage within the left maxillary sinus. -case was discussed with OMFS, will see in am -NPO after midnight for possible surgery -hold am lovenox if surgery confirmed (2) Closed left clavicular fracture: Plan: -sling -pain control -PT/OT (3) History of mechanical aortic valve replacement: Plan: -INR subtheraputic -lovenox 60mg SQ Q12hrs (4) Hypothyroidism: Plan: levothyroxine (5) Hypertension: Plan: -coreg -spironolactone History of Present Illness Chief Complaint: Fall, left periorbital hematoma, left shoulder fx who presents with left facial and left shoulder injury after tripping over her cat at home. In the ER her CT scan results showed mildly displaced left orbital floor fracture and a small amount of orbital fat and portion of the left inferior rectus muscle extending into the defect. Also noted to have a small amount of hemorrhage within the left maxillary sinus. The case was discussed with OMFS who recommended admission for potential surgery in the am. Pt had Xray that also showed left clavicular fx. Pt otherwise has no other complaints. Primary Care Provider: Anant Mills MD Pt is a 78 y/o female with pmh of mechanical aortic valve on coumadin, HTN, hypothyroidism, Allergies Allergy/AdvReac Type Severity Reaction Status Date / Time Sulfa (Sulfonamide Allergy Severe Hives, Verified 10/22/24 10:59 Antibiotics) itching adhesive tape Allergy Intermediate Skin Verified 10/22/24 10:59 irritation Home Medications Medication Instructions Recorded Confirmed Type aspirin 81 mg tablet,delayed 81 mg PO QAM 12/02/18 11/05/24 History release fexofenadine 180 mg tablet 180 mg PO QAM 12/02/18 11/05/24 History magnesium oxide 400 mg (241.3 mg 400 mg PO QAM #30 tabs 12/02/18 11/05/24 History magnesium) tablet ascorbic acid (vitamin C) 1,000 mg 1 gm PO QAM 12/18/18 11/05/24 History tablet calcium carbonate 600 mg PO BID 12/18/18 11/05/24 History clobetasol 0.05 % topical ointment 1 appln topical BID PRN rash #1 g 12/18/18 11/05/24 History propylene glycol 0.6 % eye drops 1 - 2 drp ophthalmic (eye) DAILY 09/22/21 11/05/24 History PRN dry eye(s) multivitamin (Daily Multi-Vitamin 1 tab PO QAM 03/27/23 11/05/24 History tablet) carvedilol 12.5 mg tablet 12.5 mg PO BID #180 tabs 02/10/24 11/05/24 Rx Lactobacillus rhamnosus GG 10 1 cap PO QAM 09/10/24 11/05/24 History billion cell capsule (Culturelle) spironolactone 25 mg tablet 25 mg PO QAM 09/10/24 11/05/24 History warfarin 3 mg tablet 3 mg PO UD 09/10/24 11/05/24 History estradiol 0.01% (0.1 mg/gram) 1 applic vaginal UD #42.5 grams 10/02/24 11/05/24 Rx vaginal cream amoxicillin 500 mg capsule 2,000 mg (4 x 500 mg) PO .COMPLEX 10/28/24 11/05/24 Rx #8 caps enoxaparin 60 mg/0.6 mL 60 mg (0.6 mL) subcut Q12H #6 mL 10/28/24 11/05/24 Rx subcutaneous syringe (Lovenox) levothyroxine 88 mcg tablet 88 mcg PO QAM #90 tabs 11/04/24 11/05/24 Rx warfarin 1 mg tablet 2 mg PO UD #180 tabs 11/04/24 11/05/24 Rx Metamucil 2 cap PO QAM 11/05/24 11/05/24 History Past Med/Surg History Problem List (Updated 11/05/24 @ 18:03 by Donis Thornton MD) History of mechanical aortic valve replacement Closed left clavicular fracture Left orbit fracture Encounter for pre-operative examination Rotator cuff arthropathy Wrist tendonitis Injury of right rotator cuff Hepatic steatosis Leg weakness Elevated LFTs Subacromial impingement Multifocal atrial tachycardia Alcohol use Mild ascending aorta dilatation Low vitamin B12 level Osteoporosis Psoriatic arthritis Hyperlipidemia Gallstones Complete rotator cuff tear or rupture of right shoulder, not specified as traumatic Tendinitis of left rotator cuff Decreased muscle strength Vaginal atrophy Macrocytosis Rotator cuff tear Vulvar atrophy 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 Lichen sclerosus et atrophicus Hypothyroidism Hypertension Hyperglycemia High triglycerides Medical History Aortic valve disease s/p redo aortic valve replacement 2010 (mechanical replacing bioprosthetic) Arthritis Bilateral leg weakness Diverticulosis of colon Hepatic steatosis History of cardiomyopathy History of colon polyps History of tachycardia Follows with [facility] cardio History of thrombophlebitis [facility] ER visit 03/22/24: "Right lower extremity ultrasound was negative for DVT but demonstrates occlusive superficial thrombophlebitis noted in the right calf without fluid collection." Hyperlipidemia Hypertension Hypomagnesemia Hypothyroidism 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 Osteopenia Osteoporosis Psoriatic arthritis Pulmonary embolism After flight (~10 years ago) Scoliosis "Mild" Swallowing difficulty Tendonitis of both wrists Physical therapy Tubulovillous adenoma of colon Surgical History Cataract extraction status of right eye 12/2014 Cataract extraction status, left eye 10/2014 H/O colonoscopy History of anesthesia reaction Extreme gag reflex History of arthroscopy of right knee Post-op infection, needed IV antibiotics History of tonsillectomy and adenoidectomy History of total abdominal hysterectomy and bilateral salpingo-oophorectomy Status post mechanical aortic valve replacement Redo aortic valve replacement 2010 (mechanical replacing bioprosthetic) Family History Mother Diverticulitis Stroke Father Hypertension Stroke Grandfather (Paternal) Myocardial infarction Grandmother (Paternal) Diabetes Grandmother (Maternal) Stroke Denies family history of Ovarian cancer Prostate cancer Breast cancer Lung cancer Colorectal cancer Social History Smoking Status: Former smoker Tobacco Type: Cigarettes Age Started Using Tobacco: 22; Age Quit Using Tobacco: 34; packs per day: 1.5; Cigarettes Per Day: 30; Second Hand Exposure: Yes (childhood); Do You Dip or Chew Tobacco: No; Hx Alcohol Use: Yes Alcohol type: wine Alcohol Intake Frequency: 4 or More x per/Week Alcohol Intake Frequency Comment: 3-4 drinks per day Hx Substance Use: No Preferred Language: Hebrew Communication Ability: Effective Visual Impairment: Limited Hearing Ability: Normal 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 Beliefs That Will Affect Care: None marital status: Current Living Situation: Spouse current occupational status: retired How many Children do You have: 1 Feels Safe at Home: Yes Childhood Exposure to Second-Hand Smoke: Yes caffeine: Yes Dental Care, Regularly: Yes Physical Activity Frequency: 3-4 Times per Week Physical Activity Frequency Comment: Walking, aerobic conditioning, strength training, stretching/yoga/pilates Seatbelt Use: always Sunscreen Use: Yes Assistive Devices: Glasses Review of Systems Review of Systems: Left oribal hematoma, left shoulder pain, left ankle pain CONST: Negative for fever, body aches and chills. HENT: Negative for neck pain/stiffness, headache, congestion, sore throat, swelling. EYES: Negative for discharge/pain or vision changes. RESP: Negative for cough/hemoptysis and shortness of breath. CV: Negative chest pain, difficulty breathing, palpitations. ABD: Negative pain, nausea, vomiting. : Negative increase frequency, dysuria, blood in urine or stool. MUSC: Negative for muscle aches, edema. SKIN: Negative rash, lesions/sores. NEURO: Negative headache, dizziness, weakness. Physical Exam Physical Exam: GENERAL APPEARANCE NAD, activity normal for age, well developed/ well nourished, no cyanosis, pallor, or diaphoresis. EYES lids/conjunctiva normal. EARS/NOSE/THROAT Mucous membranes moist, nares normal, lips/teeth normal uvula midline without oral pharyngeal erythema, exudate or swelling TMs normal bilaterally. No lymphangitis/lymphedema. HEAD/NECK Left periorbital hematoma with injected sclera RESPIRATORY respiratory effort normal, speaks in full sentences, no tripod position, no accessory muscle use. Lungs clear to auscultation without rhonchi, wheezes, rales CARDIAC Regular rate and rhythm, no edema. ABDOMINAL Soft, ND/NT. No evidence of fluid wave. No pulsatile masses on exam, rebound tenderness, Salamanca sign or pain over Mcburney's point. MUSCLES/EXTREMITIES No abnormal range of motion, no swelling. SKIN Warm, pink and dry. No rashes, dermatoses, petechiae or lesions. NEUROLOGICAL Speech is clear and appropriate. Normal level of consciousness. Gait and coordination are normal. 5/5 strength in all extremities. PSYCH Normal mood and affect. Judgement/competence is appropriate Results & Data Results & Data Vital Signs (Past 12 Hours) Vital Signs Temp Pulse Pulse Resp BP BP Pulse Ox 11/05/24 17:00 92 H 20 160/90 H 95 11/05/24 16:00 71 19 176/128 H 98 11/05/24 15:40 36.7 C 63 22 167/93 H 91 11/05/24 15:30 61 17 167/93 H 97 11/05/24 15:00 61 21 157/77 H 96 11/05/24 14:00 63 20 156/85 H 95 11/05/24 13:56 70 19 148/103 H 97 11/05/24 13:55 148/103 H 11/05/24 13:51 71 20 96 11/05/24 13:21 36.7 C 97 H 17 150/103 H 96 O2 Del Method O2 Flow Rate 11/05/24 17:00 Room Air 11/05/24 16:00 Room Air 11/05/24 15:40 Room Air 0 11/05/24 15:30 Room Air 11/05/24 15:00 Room Air 11/05/24 14:00 Room Air 11/05/24 13:56 Room Air 11/05/24 13:55 11/05/24 13:51 Room Air 11/05/24 13:21 Room Air PG Care Time/CCT Total # of Minutes Spent Total Time Spent with Patient: Total time spent is greater than 50% in coordination of care (as documented) at patient's floor/unit and/or counseling patient: Coding Level of Care Code 38845 INT INP/OBS CARE 2/55MIN Diagnoses Left orbit fracture S02.85XA Closed left clavicular fracture S42.002A History of mechanical aortic valve replacement Z95.2 Hypothyroidism E03.9 Hypertension I10
[2024-11-05] MEDS ORDERED: HEPARIN SOD 5,000 UNIT/0.5 ML VIAL SQ SCH (22:00)
[2024-11-05] MEDS: ENOXAPARIN INJ 60 MG/0.6 ML SYR SQ SCH (23:22)
[2024-11-05] MEDS: ACETAMINOPHEN 325 MG TAB PO PRN (23:22)
[2024-11-05] MEDS: CALCIUM CARBONATE 1250MG TAB PO SCH (23:22)
[2024-11-06] MEDS: LEVOTHYROXINE SODIUM 88 MCG TABLET PO SCH (06:28)
[2024-11-06 07:16] VITALS: RESP 16
[2024-11-06 08:34] LABS: Hematocrit (blood only) 37.0 % (37.0-47.0); Hemoglobin 12.4 g/dl (12.0-16.0); Mean Corpuscular Hemoglobin 33.5 pg (25.0-34.0); Mean Corpuscular Volume 100.0 fL (80.0-100.0); Platelet Count 177 K/uL (130-400); RDW Standard Deviation 52.7 fL (36.4-46.3); Red Blood Count 3.70 M/uL (4.20-5.40); White Blood Count 6.46 K/ul (4.8-10.8)
[2024-11-06 08:50] LABS: Anion Gap 6.0 (3-11); Blood Urea Nitrogen 16.0 mg/dl (6-23); Calcium 8.2 mg/dl (8.6-10.3); Carbon Dioxide 26.0 mmol/L (21-32); Chloride 109.0 mmol/L (98-107); Creatinine Clr Calc Pharmacy 99.6 ml/min; Glucose 86.0 mg/dl (70-99(Fasting)); Potassium 3.6 mmol/L (3.5-5.1); Sodium 141.0 mmol/L (136-145)
--- NOTE | 2024-11-06 09:16 | Emergency Department Note ---
ED Provider Note History of Present Illness Chief Complaint: Trauma Stated Complaint: FALL ON LT SIDE, SHOULDER, BACK,ANKLE EYE BRUSE Time Seen by Provider: 11/05/24 13:40 Source: patient Mode of arrival: ambulatory Limitations: no limitations Patient is a 78-year-old female who presents to the emergency department after a ground-level fall. Patient states that last evening she tripped over her cat had a ground-level fall. Patient notes that she is on Coumadin. Patient presents with complaints of left eye bruising, left shoulder, left upper back, left chest and rib, and left ankle pain. Patient denies any loss of consciousness but does feel that she may have hit her head. Patient denies any headache, vision loss or dizziness at this time. Home Medications Medication Instructions Recorded Confirmed Type aspirin 81 mg tablet,delayed 81 mg PO QAM 12/02/18 11/05/24 History release fexofenadine 180 mg tablet 180 mg PO QAM 12/02/18 11/05/24 History magnesium oxide 400 mg (241.3 mg 400 mg PO QAM #30 tabs 12/02/18 11/05/24 History magnesium) tablet ascorbic acid (vitamin C) 1,000 mg 1 gm PO QAM 12/18/18 11/05/24 History tablet calcium carbonate 600 mg PO BID 12/18/18 11/05/24 History clobetasol 0.05 % topical ointment 1 appln topical BID PRN rash #1 g 12/18/18 11/05/24 History propylene glycol 0.6 % eye drops 1 - 2 drp ophthalmic (eye) DAILY 09/22/21 11/05/24 History PRN dry eye(s) multivitamin (Daily Multi-Vitamin 1 tab PO QAM 03/27/23 11/05/24 History tablet) carvedilol 12.5 mg tablet 12.5 mg PO BID #180 tabs 02/10/24 11/05/24 Rx Lactobacillus rhamnosus GG 10 1 cap PO QAM 09/10/24 11/05/24 History billion cell capsule (Culturelle) spironolactone 25 mg tablet 25 mg PO QAM 09/10/24 11/05/24 History warfarin 3 mg tablet 3 mg PO UD 09/10/24 11/05/24 History estradiol 0.01% (0.1 mg/gram) 1 applic vaginal UD #42.5 grams 10/02/24 11/05/24 Rx vaginal cream enoxaparin 60 mg/0.6 mL 60 mg (0.6 mL) subcut Q12H #6 mL 10/28/24 11/05/24 Rx subcutaneous syringe (Lovenox) levothyroxine 88 mcg tablet 88 mcg PO QAM #90 tabs 11/04/24 11/05/24 Rx warfarin 1 mg tablet 2 mg PO UD #180 tabs 11/04/24 11/05/24 Rx Metamucil 2 cap PO QAM 11/05/24 11/05/24 History propylene glycol (PF) 0.6 % eye See Rx Instructions ophthalmic 11/09/24 11/09/24 History drops (Systane Complete PF) (eye) .COMPLEX PRN Allergies Allergy/AdvReac Type Severity Reaction Status Date / Time Sulfa (Sulfonamide Allergy Severe Hives, Verified 10/22/24 10:59 Antibiotics) itching adhesive tape Allergy Intermediate Skin Verified 10/22/24 10:59 irritation Past Med/Surg History Problem List History of mechanical aortic valve replacement Closed left clavicular fracture Left orbit fracture Encounter for pre-operative examination Rotator cuff arthropathy Wrist tendonitis Injury of right rotator cuff Hepatic steatosis Leg weakness Elevated LFTs Subacromial impingement Multifocal atrial tachycardia Alcohol use Mild ascending aorta dilatation Low vitamin B12 level Osteoporosis Psoriatic arthritis Hyperlipidemia Gallstones Complete rotator cuff tear or rupture of right shoulder, not specified as traumatic Tendinitis of left rotator cuff Decreased muscle strength Vaginal atrophy Macrocytosis Rotator cuff tear Vulvar atrophy 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 Lichen sclerosus et atrophicus Hypothyroidism Hypertension Hyperglycemia High triglycerides Medical History History of cardiomyopathy Aortic valve disease s/p redo aortic valve replacement 2010 (mechanical replacing bioprosthetic) History of thrombophlebitis [facility] ER visit 03/22/24: "Right lower extremity ultrasound was negative for DVT but demonstrates occlusive superficial thrombophlebitis noted in the right calf without fluid collection." History of tachycardia Follows with [facility] cardio History of colon polyps Tendonitis of both wrists Physical therapy Tubulovillous adenoma of colon Scoliosis "Mild" Hepatic steatosis Hypothyroidism Hypertension Hyperlipidemia Swallowing difficulty Bilateral leg weakness 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 Osteoporosis Psoriatic arthritis Arthritis Pulmonary embolism After flight (~10 years ago) Osteopenia Hypomagnesemia Diverticulosis of colon Surgical History History of anesthesia reaction Extreme gag reflex Status post mechanical aortic valve replacement Redo aortic valve replacement 2010 (mechanical replacing bioprosthetic) History of arthroscopy of right knee Post-op infection, needed IV antibiotics H/O colonoscopy Cataract extraction status, left eye 10/2014 Cataract extraction status of right eye 12/2014 History of total abdominal hysterectomy and bilateral salpingo-oophorectomy History of tonsillectomy and adenoidectomy Family History Mother Diverticulitis Stroke Father Hypertension Stroke Grandfather (Paternal) Myocardial infarction Grandmother (Paternal) Diabetes Grandmother (Maternal) Stroke Denies family history of Ovarian cancer Prostate cancer Breast cancer Lung cancer Colorectal cancer Social History Smoking Status: Former smoker Tobacco Type: Cigarettes Age Started Using Tobacco: 22; Age Quit Using Tobacco: 34; packs per day: 1.5; Cigarettes Per Day: 30; Smoking End Date: Quit ; Second Hand Exposure: No; Do You Dip or Chew Tobacco: No; Tobacco Cessation Education Requested by Patient: No Hx Alcohol Use: Yes Alcohol type: wine Alcohol Intake Frequency: 4 or More x per/Week Alcohol Intake Frequency Comment: 3-4 drinks per day Hx Substance Use: No Preferred Language: Azeri Communication Ability: Effective Visual Impairment: Limited Hearing Ability: Normal Radio Repairman Required: No Beliefs That Will Affect Care: None marital status: Current Living Situation: Spouse current occupational status: retired How many Children do You have: 1 Other Information That Helps Us Care for You: No Feels Safe at Home: Yes Safety Concerns: Feels Safe At This Time Childhood Exposure to Second-Hand Smoke: Yes caffeine: Yes Dental Care, Regularly: Yes Physical Activity Frequency: 3-4 Times per Week Physical Activity Frequency Comment: Walking, aerobic conditioning, strength training, stretching/yoga/pilates Seatbelt Use: always Sunscreen Use: Yes Assistive Devices: Walker Physical Exam Vital Signs Vital Signs - 24 hr 11/05/24 13:21 11/05/24 13:51 11/05/24 13:55 Temperature 36.7 C Temperature Source Temporal Artery Scan Pulse Rate 97 H 71 Pulse Rate [Apical] Pulse Rate from SpO2 Sensor Respiratory Rate 17 20 Respiratory Effort / Characteristics Non-Labored Spontaneous Respiratory Depth Normal Respiratory Pattern Regular Blood Pressure 150/103 H 148/103 H Blood Pressure [Left Arm] Blood Pressure Mean 118 119 Blood Pressure Mean [Left Arm] Blood Pressure Position [Left Arm] Pulse Oximetry 96 96 Oxygen Delivery Method Room Air Room Air Oxygen Flow Rate Sepsis Recent Fever Within 48 Hours No Sepsis New/Unexplained Change in Mental Status N/A Sepsis Action Taken by Nursing No Action Required 11/05/24 13:56 11/05/24 14:00 11/05/24 15:00 Temperature Temperature Source Pulse Rate 63 61 Pulse Rate [Apical] 70 Pulse Rate from SpO2 Sensor 62 60 Respiratory Rate 19 20 21 Respiratory Effort / Characteristics Non-Labored Spontaneous Respiratory Depth Normal Respiratory Pattern Regular Blood Pressure 156/85 H 157/77 H Blood Pressure [Left Arm] 148/103 H Blood Pressure Mean 108 103 Blood Pressure Mean [Left Arm] 118 Blood Pressure Position [Left Arm] Pulse Oximetry 97 95 96 Oxygen Delivery Method Room Air Room Air Room Air Oxygen Flow Rate Sepsis Recent Fever Within 48 Hours Sepsis New/Unexplained Change in Mental Status Sepsis Action Taken by Nursing 11/05/24 15:30 11/05/24 15:40 11/05/24 16:00 Temperature 36.7 C Temperature Source Pulse Rate 63 Pulse Rate [Apical] 61 71 Pulse Rate from SpO2 Sensor Respiratory Rate 17 22 19 Respiratory Effort / Characteristics Non-Labored Spontaneous Non-Labored Spontaneous Respiratory Depth Normal Normal Respiratory Pattern Regular Regular Blood Pressure 167/93 H Blood Pressure [Left Arm] 167/93 H 176/128 H Blood Pressure Mean Blood Pressure Mean [Left Arm] 117 144 Blood Pressure Position [Left Arm] Pulse Oximetry 97 91 98 Oxygen Delivery Method Room Air Room Air Room Air Oxygen Flow Rate 0 Sepsis Recent Fever Within 48 Hours Sepsis New/Unexplained Change in Mental Status Sepsis Action Taken by Nursing 11/05/24 17:00 Temperature Temperature Source Pulse Rate Pulse Rate [Apical] 92 H Pulse Rate from SpO2 Sensor Respiratory Rate 20 Respiratory Effort / Characteristics Non-Labored Spontaneous Respiratory Depth Normal Respiratory Pattern Regular Blood Pressure Blood Pressure [Left Arm] 160/90 H Blood Pressure Mean Blood Pressure Mean [Left Arm] 113 Blood Pressure Position [Left Arm] Semi-fowlers Pulse Oximetry 95 Oxygen Delivery Method Room Air Oxygen Flow Rate Sepsis Recent Fever Within 48 Hours Sepsis New/Unexplained Change in Mental Status Sepsis Action Taken by Nursing VITAL SIGNS - Vital signs and nursing notes were reviewed. GENERAL -78-year-old female appearing their stated age, who is in no acute distress. Communicates well with provider and answers questions appropriately. Patient's is at bedside. HEAD - Normocephalic, with swelling, erythema, and bruising noted around the left eye. No palpable skull fractures noted. EYES - PERRL with EOMI bilaterally. Sclera anicteric. Conjunctiva pink and moist with mild injection noted to the left eye. Patient has full range of motion of both of her eyes with no pain with ocular movement. EARS - No deformities of external structures noted on gross examination bilaterally. NOSE - Midline and without cyanosis. No epistaxis or purulent drainage noted. MOUTH/OROPHARYNX - Without perioral cyanosis. Buccal mucosa pink and moist and without leukoplakia. NECK - Neck with FROM. Supple to palpation. No lymphadenopathy noted. LUNGS - Chest wall symmetric without accessory muscle use, intercostals retractions, or central cyanosis. Normal vesicular breath sounds CTA B/L. No wheezes, rales, or rhonchi appreciated. Patient does note some mildly increased discomfort with deep breaths in her left rib area. CARDIAC - RRR with S1/S2. No murmur, rubs, or gallops appreciated. EXTREMITIES - No edema present. Limited range of motion and decreased strength noted in the left upper arm and left shoulder due to discomfort. Pulses palpable and sensation intact. NEUROLOGIC -Sensory intact to light touch throughout. PSYCH - A&Ox3 and cooperates fully with examiner. Pt is very pleasant and interacts well with examiner Course Administered Medications Discontinued Medications Acetaminophen (Acetaminophen 325 Mg Tab) 650 mg PO Q4H PRN PRN Reason: pain/fever Stop: 12/05/24 17:14 Last Admin: 11/05/24 23:22 Dose: 650 mg Documented By: EKF Ascorbic Acid (Ascorbic Acid 500 Mg Tab) 1,000 mg PO QAM [facility] Stop: 12/06/24 08:59 Last Admin: 11/06/24 13:18 Dose: 1,000 mg Documented By: MK Calcium Carbonate (Calcium Carbonate 1250mg Tab) 1 tab PO BID [facility] Stop: 12/05/24 20:59 Last Admin: 11/06/24 13:18 Dose: 1 tab Documented By: Admin: 11/05/24 23:22 Dose: 1 tab Documented By: ADRIF Carvedilol (Carvedilol 12.5 Mg Tab) 12.5 mg PO BID [facility] Stop: 12/05/24 20:59 Last Admin: 11/06/24 13:19 Dose: 12.5 mg Documented By: Admin: 11/05/24 23:22 Dose: 12.5 mg Documented By: EKF Enoxaparin Sodium (Enoxaparin Inj 60 Mg/0.6 Ml Syr) 60 mg SQ Q12H [facility] Stop: 12/05/24 22:29 Last Admin: 11/06/24 13:20 Dose: 60 mg Documented By: Admin: 11/05/24 23:22 Dose: 60 mg Documented By: ADRIF Lactobacillus Acidophilus (Advanced Probiotic 625 Mg Capsule) [facility] [place]: 12/06/24 08:59 Last Admin: 11/06/24 13:19 Dose: 1,250 mg Documented By: BRENDA Levothyroxine Sodium (Levothyroxine Sodium 88 Mcg Tablet) 88 mcg PO DAILYBB [facility] Stop: 12/06/24 06:29 Last Admin: 11/06/24 06:28 Dose: 88 mcg Documented By: LOLA Multivitamins (Multivitamin Tab) [facility] [place]: 12/06/24 08:59 Last Admin: 11/06/24 13:19 Dose: 1 tab Documented By: BRENDA Spironolactone (Spironolactone 25 Mg Tab) [facility] [place]: 12/06/24 08:59 Last Admin: 11/06/24 13:18 Dose: 25 mg Documented By: BRENDA Warfarin Sodium (Warfarin Sod 3 Mg Tab) 3 mg PO DAILY@1600 [facility] Stop: 12/06/24 15:59 Last Admin: 11/06/24 15:13 Dose: 3 mg Documented By: BRENDA Medical Decision Making Differential Diagnosis Intracranial hemorrhage, subdural hematoma, fracture, dislocation, subluxation, contusion, ligamentous injury, hematoma, among others Medical Records Attestation: I reviewed the patient's medical records. Home Medications was personally reviewed by me Laboratory Data Attestation: I reviewed the patient's lab results. 11/06/24 08:08 11/06/24 08:08 Lab Results 11/05/24 Range/Units 13:50 PT 12.2 H (9.0-12.0) Seconds INR 1.1 (0.9-1.1) APTT 27 (21-31) Seconds PTT Ratio 1.0 MDM Narrative Patient is a 78-year-old female who presents to the emergency department after a ground-level fall. Patient states that last evening she tripped over her cat had a ground-level fall. Patient notes that she is on Coumadin. Patient presents with complaints of left eye bruising, left shoulder, left upper back, left chest and rib, and left ankle pain. Patient denies any loss of consciousness but does feel that she may have hit her head. Patient denies any headache, vision loss or dizziness at this time. Patient was evaluated by myself and findings were noted in the physical exam above. Patient was ordered IV placement, i-STAT lab work, x-ray of the left shoulder, left clavicle, left tib-fib, left elbow, right elbow, and left ankle. Patient also had a CT of the head, face, cervical spine, thoracic spine, and lumbar spine. Patient's i-STAT was normal and it was appropriate for him to go to CT. patient had a head CT that was completed and interpreted by radiology to show no acute intracranial abnormality. There is no noted fracture. There was a left periorbital contusion noted with the globe intact and no retrobulbar hematoma noted. Head CT did note an acute displaced left orbital floor fracture that was better identified on the facial CT. Patient had a CT of the facial bones that was completed and noted the acute displaced left orbital floor fracture, with a small amount of orbital fat and a portion of the left inferior rectus muscle slightly extending through the defect. Patient has small amount of hemorrhage within the left maxillary sinus noted as well. Patient also had a CT of the cervical spine that was completed and interpreted by radiology to show no acute fractures, subluxations or abnormal findings. Patient had a thoracic spine CT completed and interpreted by radiology to show no evidence of any fracture or acute bony abnormality but with osteopenia and degenerative changes noted. Patient had a lumbar CT completed and interpreted by radiology to show no evidence of any acute bony abnormalities. Patient had an x-ray of her left shoulder and clavicle completed and interpreted by radiology to note an acute fracture of the distal left clavicle. Patient also had x-rays of her left tib-fib, left ankle, and bilateral elbows which all showed no evidence of any acute fracture or dislocation. I discussed all these findings with the patient who verbalized understanding. I discussed with the patient that I was going to reach out to Dr. William Tillman who is on-call for oral maxillary facial surgery to discuss whether keeping her here at [facility] was appropriate with her left orbital floor fracture. Patient verbalized understanding. I reach out to Dr. William Tillman and gave him a full report on the patient's chief complaint, current status and the results of her imaging and lab work. He verbalized understanding and stated that this was something that he was comfortable keeping here at [facility] but due to her being on Coumadin and transitioning to Lovenox in preparation for shoulder surgery you thought it would be most appropriate to keep her here in the hospital to regulate her coagulation. The patient also does not have therapeutic INR levels for being on Coumadin. Patient discussed her INR level with the Coumadin clinic nurse while she was here in the emergency department and they advised her to adjust her medications as we suggest. I discussed this with Dr. Tillman. Dr. Tillman agreed that the patient should stay in the hospital so that we can adjust her coagulation medications as needed and she could speak with orthopedic surgery about whether they were going to continue with her scheduled shoulder replacement with her new injuries and they could monitor for any worsening of her symptoms while she is here. Reach out to the [facility] hospitalist group to admit this patient to the hospital. The patient was accepted for admission under the [facility] hospitalist group's service and will have Dr. Tillman consulted and see the patient tomorrow. Please refer to Dr. Tillman in the [facility] hospitalist group's documentation for further evaluation management of this patient. Impression Left orbit fracture, Closed left clavicular fracture Discharge Plan Visit Data Chief Complaint: Trauma Stated Complaint: FALL ON LT SIDE, SHOULDER, BACK,ANKLE EYE BRUSE ED Provider: Elana Grullon ED Midlevel Provider: Kamila Ramires Discharge Problem: Left orbit fracture, Closed left clavicular fracture Patient Disposition: Admitted As Inpatient Condition: Fair Discharge Instructions Interventions: ED Discharge Assessment Last Done: 11/05/24 21:28 ED DC CONDITION Conditon at Discharge Condition at Discharge: Fair
--- NOTE | 2024-11-06 10:39 | Hospitalist Progress Note ---
Date of Service November 06, 2024 Assessment & Plan (1) Left orbit fracture: Plan: -s/p fall - CT showing mildly displaced left orbital floor fracture and a small amount of orbital fat and portion of the left inferior rectus muscle extending into the defect. Also noted to have a small amount of hemorrhage within the left maxillary sinus. -case was discussed with OMFS, will see in am -NPO after midnight for possible surgery -hold am lovenox if surgery confirmed (2) Closed left clavicular fracture: Plan: -sling -pain control -PT/OT (3) History of mechanical aortic valve replacement: Plan: -INR subtheraputic -lovenox 60mg SQ Q12hrs (4) Hypothyroidism: Plan: levothyroxine (5) Hypertension: Plan: -coreg -spironolactone Admission and Anticipated Discharge Date Admission Date: November 05, 2024 Subjective No events overnight. Review of Systems Review of Systems: Left oribal hematoma, left shoulder pain, left ankle pain CONST: Negative for fever, body aches and chills. HENT: Negative for neck pain/stiffness, headache, congestion, sore throat, swelling. EYES: Negative for discharge/pain or vision changes. RESP: Negative for cough/hemoptysis and shortness of breath. CV: Negative chest pain, difficulty breathing, palpitations. ABD: Negative pain, nausea, vomiting. : Negative increase frequency, dysuria, blood in urine or stool. MUSC: Negative for muscle aches, edema. SKIN: Negative rash, lesions/sores. NEURO: Negative headache, dizziness, weakness. Physical Exam Physical Exam: GENERAL APPEARANCE NAD, activity normal for age, well developed/ well nourished, no cyanosis, pallor, or diaphoresis. EYES lids/conjunctiva normal. EARS/NOSE/THROAT Mucous membranes moist, nares normal, lips/teeth normal uvula midline without oral pharyngeal erythema, exudate or swelling TMs normal bilaterally. No lymphangitis/lymphedema. HEAD/NECK Left periorbital hematoma with injected sclera RESPIRATORY respiratory effort normal, speaks in full sentences, no tripod position, no accessory muscle use. Lungs clear to auscultation without rhonchi, wheezes, rales CARDIAC Regular rate and rhythm, no edema. ABDOMINAL Soft, ND/NT. No evidence of fluid wave. No pulsatile masses on exam, rebound tenderness, Salamanca sign or pain over Mcburney's point. MUSCLES/EXTREMITIES No abnormal range of motion, no swelling. SKIN Warm, pink and dry. No rashes, dermatoses, petechiae or lesions. NEUROLOGICAL Speech is clear and appropriate. Normal level of consciousness. Gait and coordination are normal. 5/5 strength in all extremities. PSYCH Normal mood and affect. Judgement/competence is appropriate Results & Data Results & Data Vital Signs (Past 12 Hours) Vital Signs Temp Pulse Resp BP Pulse Ox O2 Del Method 11/06/24 07:13 37 C 67 16 145/75 H 94 Room Air 11/05/24 23:16 74 123/69 11/05/24 22:40 37 C 76 18 154/92 H 94 Room Air PG Care Time/CCT Total # of Minutes Spent Total Time Spent with Patient: Total time spent is greater than 50% in coordination of care (as documented) at patient's floor/unit and/or counseling patient: Coding Level of Care Code 18486 SUB INP/OBS CARE 2/35MIN Diagnoses Left orbit fracture S02.85XA Closed left clavicular fracture S42.002A History of mechanical aortic valve replacement Z95.2 Hypothyroidism E03.9 Hypertension I10
--- NOTE | 2024-11-06 13:10 | Oral/Maxillofacial Consult ---
Date of Consultation November 06, 2024 Assessment & Plan (1) History of mechanical aortic valve replacement: (2) Closed left clavicular fracture: (3) Left orbit fracture: History of Present Illness Attending Physician: Donis Thornton MD History of Present Illness Patient sustained a fall hitting her left cheek came to ER November 05. CT scan shows left orbital floor fracture but w/o any eye issues as double vision, vision issues, pain, excellent ROM. Has mechanical heart valve on warfarin but non therapeutic INR 1.1 and still being on the Warfarin ? Hospital service will start bridging now that no surgery needed The swelling and redness is subsiding over the last 36 hours and resolving swelling no hematoma or active balding from nose or sinus I did an intra nasal evaluation, the septum looks good, no edema, excellent airflow, anatomy looks good, no redness or drainage. Patient has no other facial issues except for the ecchymosis I reviewed the CT and there is a minimal displaced orbital floor fracture that will not require any treatment given that there are no eye symptoms. I did discuss that as the swelling decrease there may be the possibility of double vision but that is no common. I will evaluate Karyn in 10 days as outpatient No major sinus or congestion issues noted. The redness, swelling, bruising is resolving very well No neck issues Clavicle fx noted Was planning on right shoulder surgery November 12 but that will be cancelled as per patient Summery: No orbital surgery treatment is indicated. OK for diet, OK to starting bridge to get INR to appropriate level. Return to see Dr Tillman [address] findings there no eye issues such as restricted movement, pain, double vision or vision changes MAXILLOFACIAL CT WITHOUT CONTRAST CLINICAL HISTORY: head/facial injury FINDINGS: The left periorbital contusion is noted. The left globe is intact with no retrobulbar hematoma. Bilateral proptosis is chronic. There is an acute displaced left orbital floor fracture. The orbital floor fracture measures approximately 1.3 cm in transverse dimension and and the fracture is displaced 5 mm. A small amount of orbital fat extends through the defect. A small portion of the left inferior rectus muscle also slightly extends through the defect. No additional acute facial fractures are present. Small amount of hemorrhage within the left maxillary sinus is present. Pterygoid plates are intact. There are no skull base fractures. Alignment of the temporomandibular joints is anatomic. IMPRESSION: 1. Acute mildly displaced left orbital floor fracture. A small amount of orbital fat and a portion of the left inferior rectus muscle slightly extend through the defect. No additional acute facial fractures. 2. Associated small amount of hemorrhage within the left maxillary sinus. 3. Left periorbital contusion. Left lobe intact. No retrobulbar hematoma. Allergies Allergy/AdvReac Type Severity Reaction Status Date / Time Sulfa (Sulfonamide Allergy Severe Hives, Verified 10/22/24 10:59 Antibiotics) itching adhesive tape Allergy Intermediate Skin Verified 10/22/24 10:59 irritation Home Medications Medication Instructions Recorded Confirmed Type aspirin 81 mg tablet,delayed 81 mg PO QAM 12/02/18 11/05/24 History release fexofenadine 180 mg tablet 180 mg PO QAM 12/02/18 11/05/24 History magnesium oxide 400 mg (241.3 mg 400 mg PO QAM #30 tabs 12/02/18 11/05/24 History magnesium) tablet ascorbic acid (vitamin C) 1,000 mg 1 gm PO QAM 12/18/18 11/05/24 History tablet calcium carbonate 600 mg PO BID 12/18/18 11/05/24 History clobetasol 0.05 % topical ointment 1 appln topical BID PRN rash #1 g 12/18/18 11/05/24 History propylene glycol 0.6 % eye drops 1 - 2 drp ophthalmic (eye) DAILY 09/22/21 11/05/24 History PRN dry eye(s) multivitamin (Daily Multi-Vitamin 1 tab PO QAM 03/27/23 11/05/24 History tablet) carvedilol 12.5 mg tablet 12.5 mg PO BID #180 tabs 02/10/24 11/05/24 Rx Lactobacillus rhamnosus GG 10 1 cap PO QAM 09/10/24 11/05/24 History billion cell capsule (Culturelle) spironolactone 25 mg tablet 25 mg PO QAM 09/10/24 11/05/24 History warfarin 3 mg tablet 3 mg PO UD 09/10/24 11/05/24 History estradiol 0.01% (0.1 mg/gram) 1 applic vaginal UD #42.5 grams 10/02/24 11/05/24 Rx vaginal cream amoxicillin 500 mg capsule 2,000 mg (4 x 500 mg) PO .COMPLEX 10/28/24 11/05/24 Rx #8 caps enoxaparin 60 mg/0.6 mL 60 mg (0.6 mL) subcut Q12H #6 mL 10/28/24 11/05/24 Rx subcutaneous syringe (Lovenox) levothyroxine 88 mcg tablet 88 mcg PO QAM #90 tabs 11/04/24 11/05/24 Rx warfarin 1 mg tablet 2 mg PO UD #180 tabs 11/04/24 11/05/24 Rx Metamucil 2 cap PO QAM 11/05/24 11/05/24 History Patient History Medical History Aortic valve disease s/p redo aortic valve replacement 2010 (mechanical replacing bioprosthetic) Arthritis Bilateral leg weakness Diverticulosis of colon Hepatic steatosis History of cardiomyopathy History of colon polyps History of tachycardia Follows with [facility] cardio History of thrombophlebitis [facility] ER visit 03/22/24: "Right lower extremity ultrasound was negative for DVT but demonstrates occlusive superficial thrombophlebitis noted in the right calf without fluid collection." Hyperlipidemia Hypertension Hypomagnesemia Hypothyroidism 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 Osteopenia Osteoporosis Psoriatic arthritis Pulmonary embolism After flight (~10 years ago) Scoliosis "Mild" Swallowing difficulty Tendonitis of both wrists Physical therapy Tubulovillous adenoma of colon Surgical History Cataract extraction status of right eye 12/2014 Cataract extraction status, left eye 10/2014 H/O colonoscopy History of anesthesia reaction Extreme gag reflex History of arthroscopy of right knee Post-op infection, needed IV antibiotics History of tonsillectomy and adenoidectomy History of total abdominal hysterectomy and bilateral salpingo-oophorectomy Status post mechanical aortic valve replacement Redo aortic valve replacement 2010 (mechanical replacing bioprosthetic) Family History Mother Diverticulitis Stroke Father Hypertension Stroke Grandfather (Paternal) Myocardial infarction Grandmother (Paternal) Diabetes Grandmother (Maternal) Stroke Denies family history of Ovarian cancer Prostate cancer Breast cancer Lung cancer Colorectal cancer Social History Smoking Status: Former smoker Tobacco Type: Cigarettes Age Started Using Tobacco: 22; Age Quit Using Tobacco: 34; packs per day: 1.5; Cigarettes Per Day: 30; Second Hand Exposure: No; Do You Dip or Chew Tobacco: No; Hx Alcohol Use: Yes Alcohol type: wine Alcohol Intake Frequency: 4 or More x per/Week Alcohol Intake Frequency Comment: 3-4 drinks per day Hx Substance Use: No Preferred Language: Bulgarian Communication Ability: Effective Visual Impairment: Limited Hearing Ability: Normal Sanitary Chemist Required: No Beliefs That Will Affect Care: None marital status: Current Living Situation: Spouse current occupational status: retired How many Children do You have: 1 Feels Safe at Home: Yes Childhood Exposure to Second-Hand Smoke: Yes caffeine: Yes Dental Care, Regularly: Yes Physical Activity Frequency: 3-4 Times per Week Physical Activity Frequency Comment: Walking, aerobic conditioning, strength training, stretching/yoga/pilates Seatbelt Use: always Sunscreen Use: Yes Assistive Devices: Glasses Results & Data Vital Signs (Past 12 Hours) Vital Signs Temp Pulse Resp BP Pulse Ox O2 Del Method 11/06/24 07:13 37 C 67 16 145/75 H 94 Room Air PG Care Time/CCT Total # of Minutes Spent Total Time Spent with Patient: Total time spent is greater than 50% in coordination of care (as documented) at patient's floor/unit and/or counseling patient: Coding Level of Care Code 77343 INT INP/OBS CARE MIN Diagnoses History of mechanical aortic valve replacement Z95.2 Closed displaced fracture of left clavicle with routine healing, unspecified part of clavicle, subsequent encounter S42.002D Encounter type: subsequent encounter Clavicle location: unspecified part of clavicle Fracture alignment: displaced Fracture healing: with routine healing Closed fracture of left orbit, initial encounter S02.85XA Encounter type: initial encounter Fracture type: closed (2) Closed left clavicular fracture Encounter type: subsequent encounter Clavicle location: unspecified part of clavicle Fracture alignment: displaced Fracture healing: with routine healing Qualified Code(s): S42.002D - Fracture of unspecified part of left clavicle, subsequent encounter for fracture with routine healing (3) Left orbit fracture Encounter type: initial encounter Fracture type: closed Qualified Code(s): S02.85XA - Fracture of orbit, unspecified, initial encounter for closed fracture
[2024-11-06 13:14] VITALS: BP 172/80; PULSE 59; TEMP 98.1; O2SAT 95
[2024-11-06] MEDS: ASCORBIC ACID 500 MG TAB PO SCH (13:18)
[2024-11-06] MEDS: SPIRONOLACTONE 25 MG TAB PO SCH (13:18)
[2024-11-06] MEDS: MULTIVITAMIN TAB PO SCH (13:19)
[2024-11-06] MEDS: ADVANCED PROBIOTIC 625 MG CAPSULE PO SCH (13:19)
--- NOTE | 2024-11-06 13:54 | Discharge Summary ---
Discharge Summary Date of Service November 06, 2024 Principal Dx & Hospital Course #1 = Principal Diagnosis (1) Left orbit fracture: -s/p fall - CT showing mildly displaced left orbital floor fracture and a small amount of orbital fat and portion of the left inferior rectus muscle extending into the defect. Also noted to have a small amount of hemorrhage within the left maxillary sinus. -case was discussed with OMFS, will see in am -NPO after midnight for possible surgery -hold am lovenox if surgery confirmed -Pt seen by OMFS and no need for surgey at this time (2) Closed left clavicular fracture: -sling -pain control -PT/OT (3) History of mechanical aortic valve replacement: -INR subtheraputic -lovenox 60mg SQ Q12hrs -continue coumadin -f/u INR as out patient (4) Hypothyroidism: levothyroxine (5) Hypertension: -coreg -spironolactone Admission HPI Per Admitting Provider Pt is a 78 y/o female with pmh of mechanical aortic valve on coumadin, HTN, hypothyroidism, Discharge Exam GENERAL APPEARANCE NAD, activity normal for age, well developed/ well nourished, no cyanosis, pallor, or diaphoresis. EYES lids/conjunctiva normal. EARS/NOSE/THROAT Mucous membranes moist, nares normal, lips/teeth normal uvula midline without oral pharyngeal erythema, exudate or swelling TMs normal bilaterally. No lymphangitis/lymphedema. HEAD/NECK Left periorbital hematoma with injected sclera RESPIRATORY respiratory effort normal, speaks in full sentences, no tripod position, no accessory muscle use. Lungs clear to auscultation without rhonchi, wheezes, rales CARDIAC Regular rate and rhythm, no edema. ABDOMINAL Soft, ND/NT. No evidence of fluid wave. No pulsatile masses on exam, rebound tenderness, [place] sign or pain over Mcburney's point. MUSCLES/EXTREMITIES No abnormal range of motion, no swelling. SKIN Warm, pink and dry. No rashes, dermatoses, petechiae or lesions. NEUROLOGICAL Speech is clear and appropriate. Normal level of consciousness. Gait and coordination are normal. 5/5 strength in all extremities. PSYCH Normal mood and affect. Judgement/competence is appropriate Discharge Plan Discharge Items Patient Disposition: Home - Self-Care Reason For Visit: ORBITAL FRACTURE Discharge Diagnosis: orbital fracture Activity: Resume your previous activity Non-emergency contact: Primary Care Provider Call non-emergency contact if: you have any medication questions Follow-up/Referrals: ProAnatn MD [Primary Care Provider] - Diet: Regular Addtl Attending Provider Instructions: Follow up with PMD in 1 week Pending Studies at Discharge: No Stand-Alone Forms: My [facility] [employer], Smoking Cessation Medications and DC Order Prescriptions: Continued carvedilol 12.5 mg tablet 12.5 mg PO BID Qty: 180 3RF estradiol 0.01 % (0.1 mg/gram) cream 1 applic vaginal UD Qty: 42.5 3RF Dose Instruction: USE DIRECTED. Patient Comments: 3- per pt, she doesn't need while admitted. Rx Instructions: Apply a small pea-sized amount to vulva 4 times per week enoxaparin [Lovenox] 60 mg/0.6 mL syringe 60 mg subcut Q12H Qty: 6 1RF Patient Comments: 3- Per pt she was supposed to start tomorrow night 11/06. levothyroxine 88 mcg tablet 88 mcg PO QAM Qty: 90 0RF warfarin 1 mg tablet 2 mg PO UD Qty: 180 3RF Protocol: Dose Management Condition: Saturday Dose/Route: 2 mg Instruction: 2 x 1 mg tablets Condition: Saturday Dose/Route: 3 mg Instruction: 1 x 3 mg tablet Condition: Saturday Dose/Route: 2 mg Instruction: 2 x 1 mg tablets Condition: Saturday Dose/Route: 2 mg Instruction: 2 x 1 mg tablets Condition: Dose/Route: 2 mg Instruction: 2 x 1 mg tablets Condition: Saturday Dose/Route: 2 mg Instruction: 2 x 1 mg tablets Condition: Saturday Dose/Route: 2 mg Instruction: 2 x 1 mg tablets Protocol Text: Adjustment Start Date: Saturday10/28/24 INR Value: 2.9 INR Date: 10/28/24 Recheck Date: 11/04/24 Rx Instructions: everyday except Mondays. DOSE DEPENDS ON WEEKLY INR'S. clobetasol 0.05 % ointment 1 appln topical BID PRN (Reason: rash) Qty: 1 Patient Comments: 3- per pt, she doesn't need while admitted. Apply up to twice daily as needed. aspirin 81 mg tablet,delayed release (DR/EC) 81 mg PO QAM fexofenadine 180 mg tablet 180 mg PO QAM magnesium oxide 400 mg (241.3 mg magnesium) tablet 400 mg PO QAM Qty: 30 ascorbic acid (vitamin C) 1,000 mg tablet 1 gm PO QAM calcium carbonate 600 mg calcium (1,500 mg) tablet 600 mg PO BID propylene glycol 0.6 % drops 1 - 2 drp OP DAILY PRN (Reason: dry eye(s)) Patient Comments: 11/03- per pt she uses systane complete PF multivitamin [Daily Multi-Vitamin] Tablet 1 tab PO QAM Metamucil 2 cap PO QAM Patient Comments: 11/03- OTC unknown dose spironolactone 25 mg tablet 25 mg PO QAM warfarin 3 mg tablet 3 mg PO UD Protocol: Dose Management Condition: Saturday Dose/Route: 2 mg Instruction: 2 x 1 mg tablets Condition: Saturday Dose/Route: 3 mg Instruction: 1 x 3 mg tablet Condition: Saturday Dose/Route: 2 mg Instruction: 2 x 1 mg tablets Condition: Saturday Dose/Route: 2 mg Instruction: 2 x 1 mg tablets Condition: Dose/Route: 2 mg Instruction: 2 x 1 mg tablets Condition: Saturday Dose/Route: 2 mg Instruction: 2 x 1 mg tablets Condition: Saturday Dose/Route: 2 mg Instruction: 2 x 1 mg tablets Protocol Text: Adjustment Start Date: Saturday10/28/24 INR Value: 2.9 INR Date: 10/28/24 Recheck Date: 11/04/24 Patient Comments: Mondays 3mg Rx Instructions: 3 mg orally Saturday EVENING. DOSE DEPENDS ON WEEKLY INR'S. Culturelle 10 billion cell Capsule 1 cap PO QAM Discontinued amoxicillin 500 mg capsule 2,000 mg PO .COMPLEX Qty: 8 1RF Rx Instructions: 2,000 mg orally 1 hour prior to dental appointment; Discharge Orders: Discharge Order (Routine); Ordered 11/06/24 Ordered By: Donis Thornton Admission Data Admit Date/Time: 11/05/24 17:15 Attending Provider: Donis Thornton Admit Provider: Donis Thornton Primary Care Provider: Anant Mills Other Providers: Donis Thornton; William Tillman Hospital Stay Data Consultations 11/05/24 16:47 ED Decision to Admit Stat 11/06/24 10:37 Consult Oromaxillofacial Surgery Routine Diagnostic Imagining Performed 11/05/24 13:59 CT cervical spine wo con Stat CT facial bones wo con Stat CT head/brain wo con Stat CT lumbar spine wo con Stat CT thoracic spine wo con Stat Pending Results Patient Have Any Pending Studies at Discharge: No Discharge Instructions Given to Patient (Per Discharging Provider) Follow up with PMD in 1 week Total Time Total Time Spent Total Time Spent (In Minutes): 50 Coding Level of Care Code 80130 INP/OBS DISCH >30 MIN Diagnoses Closed fracture of left orbit, initial encounter S02.85XA Encounter type: initial encounter Fracture type: closed Closed displaced fracture of left clavicle with routine healing, unspecified part of clavicle, subsequent encounter S42.002D Encounter type: subsequent encounter Clavicle location: unspecified part of clavicle Fracture alignment: displaced Fracture healing: with routine healing History of mechanical aortic valve replacement Z95.2 Hypothyroidism E03.9 Hypertension I10
[2024-11-06] MEDS: WARFARIN SOD 3 MG TAB PO SCH (15:13)
== END 2024-11-06 15:44 | disposition home health service (06) | DRG 125 ==
LOC: ED 13:16 → 3W 17:15 → INTOOBSV 17:15 → OBSVTOIN 17:15 → 3W 21:28